=== PATIENT | male | born 1930 | race Two or more races ===

== ENCOUNTER 2018-03-29 17:15 | Emergency (ER) | payer MEDICARE, OTHER ==
[2018-03-29 17:40] LABS: MONOCYTE ABSOLUTE 0.4 Th/cmm (0.3-1.0)
[2018-03-29 17:43] LABS: % EOSINOPHILS 7.6 % (0.0-5.0); % LYMPHOCYTES 27.4 % (20.0-50.0); % MONOCYTES 8.5 % (2.0-10.0); % NEUTROPHILS 55.5 % (40.0-80.0); EOSINOPHILE ABSOLUTE 0.3 Th/cmm (0.1-0.4); HEMATOCRIT 32.7 % (41.0-60); HEMOGLOBIN 11.2 gm/dL (12-16); LYMPHOCYTE ABSOLUTE 1.2 Th/cmm (1.5-3.0); MEAN CELL VOLUME 94.1 fl (80-99); MEAN CORPUSCULAR HEMOGLOBIN 32.2 pg (27.0-31.0); MEAN CORPUSCULAR HGB CONC 34.3 pg (28.0-36.0); MEAN PLATELET VOLUME 7.6 fl; NEUTROPHILE ABSOLUTE 2.5 Th/cmm (1.8-8.0); PLATELET COUNT 200 Th/cmm (150-400); RED BLOOD COUNT 3.48 Mil/cmm (3.80-5.80); RED CELL DISTRIBUTION WIDTH 12.4 % (11.5-20.0); WHITE BLOOD COUNT 4.4 Th/cmm (4.8-10.8)
[2018-03-29 18:00] LABS: ALB/GLOB RATIO 0.9 (1.0-1.8); ALBUMIN 3.4 gm/dL (4.2-5.5); ALKALINE PHOSPHATASE 88 U/L (34-104); ANION GAP 10.6 (7.0-16.0); BILIRUBIN,TOTAL 0.3 mg/dL (0.3-1.0); BUN - UREA NITROGEN 49 mg/dL (7-25); CALCIUM SERUM 9.4 mg/dL (8.6-10.3); CARBON DIOXIDE 26.2 mEq/L (21.0-31.0); CHLORIDE 105 mEq/L (98-107); CREATININE - SERUM 1.7 mg/dL (0.7-1.3); GLUCOSE 120 mg/dL (70-105); PHOSPHOROUS 2.2 mg/dL (2.5-5.0); POTASSIUM SERUM 3.8 mEq/L (3.5-5.1); SGOT 18 U/L (13-39); SGPT/ALT 9 U/L (7-52); SODIUM SERUM 138 mEq/L (136-145); TOTAL PROTEIN,SERUM 7.3 gm/dL (6.0-8.3)
--- NOTE | 2018-03-29 18:33 | ED Physician Chart ---
ED Chief Complaint/HPI - Patient Information Date Seen:: 03/29/18 Time Seen:: 17:30 Chief Complaint:: INAPPROPRIATE BEHAVIOR History of Present Illness:: INAPPROPRIATE BEHAVIOR. PATIENT IS CLEARED FROM A MEDICAL STANDPOINT FOR PSYCHIATRIC ADMIT. HIS PHOSPHOROUS LEVEL IS A LITTLE LOW AND THAT SHOULD BE REPLACED. ALSO, HIS THYROID LEVEL REMAINS ABNORMAL SO HIS THYROID MEDICATION MAY NEED TO BE ADJUSTED. ALSO, PATIENT WAS NOT ABLE TO URINATE. THEREFORE, HIS URINALYSIS HAS NOT RETURNED PRIOR TO CLEARANCE. Allergies:: Allergies Allergy/AdvReac Type Severity Reaction Status Date / Time doxycycline Allergy Verified 03/29/18 17:26 [email or web address] Allergy Verified 03/29/18 17:26 Vitals:: Vital Signs - 8 hr 03/29/18 03/29/18 17:26 18:08 Temp 98.9 F 98.9 F HR 77 78 RR 19 16 BP 107/58 99/51 O2 Sat % 96 98 ED Physical Exam - Physical Examination Head: Atraumatic Eyes: Lids, conjuctiva normal, PERRL, EOMI Other ENMT comments:: dry mucous membranes Respiratory: Nl effort/Exclusion, Clear to Auscultation, No Wheeze/Rhonchi/Rales Cardio Vascular: RRR, No murmur, gallop, rubs, NL S1 S2 : No CVA tenderness Extremities: No edema Other Extremities comments:: scratches on lower legs. Other Neuro/Psych comments:: in general, patient is sleepy, but when he awakens, he is agitated. Sats are 98 % on room air. Misc: Normal back, No paraspinal tenderness Other Misc comments:: PATIENT IS CLEARED FROM A MEDICAL STANDPOINT FOR PSYCHIATRIC ADMIT. HIS PHOSPHOROUS LEVEL IS A LITTLE LOW AND THAT SHOULD BE REPLACED. ALSO, HIS THYROID LEVEL REMAINS ABNORMAL SO HIS THYROID MEDICATION MAY NEED TO BE ADJUSTED. ALSO, PATIENT WAS NOT ABLE TO URINATE. THEREFORE, HIS URINALYSIS HAS NOT RETURNED PRIOR TO CLEARANCE. ED Labs/Radiology/EKG Results - Lab Results Results: Laboratory Tests 03/29/18 03/29/18 03/29/18 17:32 17:32 17:32 WBC 4.4 L RBC 3.48 L Hgb 11.2 L Hct 32.7 L MCV 94.1 MCH 32.2 H MCHC Differential 34.3 RDW 12.4 Plt Count 200 MPV 7.6 Neutrophils % 55.5 Lymphocytes % 27.4 Monocytes % 8.5 Eosinophils % 7.6 H Basophils % 1.0 Sodium 138 Potassium 3.8 Chloride 105 Carbon Dioxide 26.2 Anion Gap 10.6 BUN 49 H Creatinine 1.7 H Est GFR ( Amer) TNP Est GFR (Non-Af Amer) TNP BUN/Creatinine Ratio 28.8 Glucose 120 H Calcium 9.4 Phosphorus 2.2 L Magnesium 2.0 Total Bilirubin 0.3 AST 18 ALT 9 Alkaline Phosphatase 88 Troponin I 0.01 Total Protein 7.3 Albumin 3.4 L Globulin 3.9 Albumin/Globulin Ratio 0.9 L ED Assessment - Assessment General Assessment: EKG from 17:26:54 pm reveals normal sinus rhythm, supraventricular bigeminy, RBBB, inferior infarct. ED Septic Shock - . Is Septic Shock (SBP<90, OR Lactate>4 mmol\L) present?: No - <6hrs of presentation: Vital Signs: Vital Signs - 8 hr 03/29/18 03/29/18 17:26 18:08 Temp 98.9 F 98.9 F HR 77 78 RR 19 16 BP 107/58 99/51 O2 Sat % 96 98 ED Reassessment (Disposition) - Reassessment Reassessment Condition:: Unchanged - Diagnosis Diagnosis:: INAPPROPRIATE BEHAVIOR, ALZHEIMER'S DISEASE, DIABETES, CAD, CHRONIC RENAL INSUFFICIENCY, HYPOTHYROIDISM (NOT COMPLETELY CORRECTED), LOW PHOSPHOROUS (NO REPLACEMENT), ANEMIA. - Patient Disposition Discharge/Transfer:: Acute Care w/in this hosp ED Discharge Plan - Patient Disposition Admit/Discharge/Transfer: Acute Care w/in this hosp Condition at Disposition: Stable Instructions: Psychosis Additional Instructions: PATIENT IS CLEARED FROM A MEDICAL STANDPOINT FOR PSYCHIATRIC ADMIT. HIS PHOSPHOROUS LEVEL IS A LITTLE LOW AND THAT SHOULD BE REPLACED. ALSO, HIS THYROID LEVEL REMAINS ABNORMAL SO HIS THYROID MEDICATION MAY NEED TO BE ADJUSTED. ALSO, PATIENT WAS NOT ABLE TO URINATE. THEREFORE, HIS URINALYSIS HAS NOT RETURNED PRIOR TO CLEARANCE.
[2018-03-29] MEDS ORDERED: Sodium Phos / Potassium Phos 1.25 GM PACK PO ONE (22:00)
== END 2018-03-29 23:10 ==
LOC: ER 17:15
DX: R46.89 Other symptoms and signs involving appearance and behavior (principal); E11.9 Type 2 diabetes mellitus without complications; I25.10 Atherosclerotic heart disease of native coronary artery without angina pectoris; G30.9 Alzheimer's disease, unspecified; F02.80 Dementia in other diseases classified elsewhere, unspecified severity, without behavioral disturbance, psychotic disturbance, mood disturbance, and anxiety; N18.9 Chronic kidney disease, unspecified; E03.9 Hypothyroidism, unspecified; D64.9 Anemia, unspecified; E83.39 Other disorders of phosphorus metabolism
CPT/HCPCS: 36415-UA; 80053-TC; 83735-TC; 84100-TC; 84443-TC; 84484-TC; 85025-TC; 93005

== ENCOUNTER 2018-07-14 11:59 | Inpatient (IN) | payer MEDICARE, OTHER ==
[2018-07-14] MEDS ORDERED: ceFAZolin 1 GM in Sodium Chloride 0.9% 50 ML IV ONE (12:14)
[2018-07-14] MEDS ORDERED: Clindamycin 600mg/50mL 600 MG/50 ML BAG IV ONE (12:15)
[2018-07-14] MEDS ORDERED: metroNIDAZOLE 500mg/NS 100mL 500 MG/100 ML BAG IV ONE ×2 (12:15→13:39)
[2018-07-14] MEDS ORDERED: Lactated Ringer 1,000 ML IV ONE (12:16)
[2018-07-14 12:33] LABS: % BASOPHILS 0.9 % (0.0-2.0); % EOSINOPHILS 3.2 % (0.0-5.0); % MONOCYTES 8.3 % (2.0-10.0); % NEUTROPHILS 74.6 % (40.0-80.0); BASOPHILE ABSOLUTE 0.1 Th/cumm (0-0.2); HEMATOCRIT 33.2 % (41.0-60); HEMOGLOBIN 10.9 gm/dL (12-16); MEAN CELL VOLUME 92.7 fl (80-99); MEAN CORPUSCULAR HEMOGLOBIN 30.5 pg (27.0-31.0); MEAN CORPUSCULAR HGB CONC 32.9 pg (28.0-36.0); MEAN PLATELET VOLUME 7.4 fl; MONOCYTE ABSOLUTE 0.6 Th/cmm (0.3-1.0); NEUTROPHILE ABSOLUTE 5.6 Th/cmm (1.8-8.0); PLATELET COUNT 326 Th/cmm (150-400); RED BLOOD COUNT 3.58 Mil/cmm (3.80-5.80); RED CELL DISTRIBUTION WIDTH 12.2 % (11.5-20.0); WHITE BLOOD COUNT 7.5 Th/cmm (4.8-10.8)
[2018-07-14 12:51] LABS: ALB/GLOB RATIO 0.6 (1.0-1.8); ALKALINE PHOSPHATASE 84 U/L (34-104); ANION GAP 9.6 (7.0-16.0); BILIRUBIN,TOTAL 0.4 mg/dL (0.3-1.0); BUN - UREA NITROGEN 51 mg/dL (7-25); CALCIUM SERUM 9.9 mg/dL (8.6-10.3); CHLORIDE 104 mEq/L (98-107); CREATININE - SERUM 1.6 mg/dL (0.7-1.3); GLUCOSE 185 mg/dL (70-105); PHOSPHOROUS 1.3 mg/dL (2.5-5.0); POTASSIUM SERUM 3.6 mEq/L (3.5-5.1); SGOT 12 U/L (13-39); SGPT/ALT 7 U/L (7-52); SODIUM SERUM 138 mEq/L (136-145); TOTAL PROTEIN,SERUM 8.1 gm/dL (6.0-8.3)
--- NOTE | 2018-07-14 13:07 | ED Physician Chart ---
ED Chief Complaint/HPI - Patient Information Date Seen:: 07/14/18 Time Seen:: 12:09 Chief Complaint:: bilateral foot sores History of Present Illness:: bilateral foot sores. right foot swollen and red in the location of the web between the right great toe and the right second toe. pus is located there as well. left great toe is swollen and red especially in the region of the IP joint of the great toe. Allergies:: Allergies Allergy/AdvReac Type Severity Reaction Status Date / Time doxycycline Allergy Verified 03/29/18 17:26 [email or web address] Allergy Verified 03/29/18 17:26 Vitals:: Vital Signs - 8 hr 07/14/18 12:09 Temp 97.8 F HR 87 RR 18 BP 129/52 O2 Sat % 99 Historian:: Medical Records Review:: Nurse's Note Reviewed, Transfer documents Reviewed ED Review of Systems - Review of Systems General/Constitutional: No fever, No chills, No weight loss, No weakness, No diaphoresis, No edema, No loss of appetite Skin: Skin lesions, No rash, No bruising, Other Family Medical History - Family Member Mother History Unknown: Yes ED Physical Exam - Physical Examination Other Gen/Cons comments:: sleeping. arousable. pale and chronically ill appearing. Head: Atraumatic Eyes: Lids, conjuctiva normal Other Skin comments:: bilateral foot sores. right foot swollen and red in the location of the web between the right great toe and the right second toe. pus is located there as well. left great toe is swollen and red especially in the region of the IP joint of the great toe. ENMT: External ears, nose nl Neck: Nontender, No nuchal rigidity Respiratory: Nl effort/Exclusion, Clear to Auscultation, No Wheeze/Rhonchi/Rales Other Respiratory comments:: decreased breath sounds at both bases. Cardio Vascular: RRR, No murmur, gallop, rubs, NL S1 S2 Other Extremities comments:: bilateral foot sores. right foot swollen and red in the location of the web between the right great toe and the right second toe. pus is located there as well. left great toe is swollen and red especially in the region of the IP joint of the great toe. Other Neuro/Psych comments:: sleepy, but easily arousable. Misc: Normal back ED Labs/Radiology/EKG Results - Lab Results Results: Laboratory Tests 07/14/18 07/14/18 07/14/18 12:25 12:25 12:25 WBC 7.5 RBC 3.58 L Hgb 10.9 L Hct 33.2 L MCV 92.7 MCH 30.5 MCHC Differential 32.9 RDW 12.2 Plt Count 326 MPV 7.4 Neutrophils % 74.6 Lymphocytes % 13.0 L Monocytes % 8.3 Eosinophils % 3.2 Basophils % 0.9 Sodium 138 Potassium 3.6 Chloride 104 Carbon Dioxide 28.0 Anion Gap 9.6 BUN 51 H Creatinine 1.6 H Est GFR ( Amer) TNP Est GFR (Non-Af Amer) TNP BUN/Creatinine Ratio 31.9 Glucose 185 H Whole Bld Lactic Acid 1.15 Calcium 9.9 Phosphorus 1.3 L Magnesium 2.0 Total Bilirubin 0.4 AST 12 L ALT 7 Alkaline Phosphatase 84 Total Protein 8.1 Albumin 3.0 L Globulin 5.1 Albumin/Globulin Ratio 0.6 L ED Assessment - Assessment General Assessment: reading of xrays by me: R foot with 1st metacarpal base fracture. Possible cortical elevation R D1 IP joint. L 1st MC with Possible cortical elevation L D1 IP joint. ED Septic Shock - . Is Septic Shock (SBP<90, OR Lactate>4 mmol\L) present?: No - <6hrs of presentation: Vital Signs: Vital Signs - 8 hr 07/14/18 12:09 Temp 97.8 F HR 87 RR 18 BP 129/52 O2 Sat % 99 ED Reassessment (Disposition) - Reassessment Reassessment Condition:: Unchanged - Diagnosis Diagnosis:: Celulitis of BLE, possible osteomyelitis Elevated sed rate urinary tract infection Low phosphorous Anemia renal insufficiency Dehydration - Patient Disposition Discharge/Transfer:: Acute Care w/in this hosp Accepting Physician:: Dr. Jackson Time Called:: 13:20 p.m. Time Responded:: 13:20 Admitted to:: Med/Surg Condition at Disposition:: Stable, Unchanged
[2018-07-14 13:42] LABS: EOSINOPHILE ABSOLUTE 0.2 Th/cmm (0.1-0.4); ESR SEDIMENTATION SED RATE 135 mm/hr (0-20)
[2018-07-14 14:20] LABS: URINE SOURCE CLEAN C
[2018-07-14 14:22] LABS: URINE BILIRUBIN NEGATIVE (NEGATIVE); URINE BLOOD NEGATIVE (NEGATIVE); URINE CLARITY CLEAR (CLEAR); URINE COLOR YELLOW; URINE GLUCOSE (UA) NEGATIVE (NEGATIVE); URINE KETONE NEGATIVE (NEGATIVE); URINE LEUKOCYTE ESTERASE NEGATIVE (NEGATIVE); URINE NITRATE NEGATIVE (NEGATIVE); URINE PROTEIN 30 mg/dL (NEGATIVE); URINE UROBILINOGEN 0.2 E.U./dL (0.2 - 1.0)
[2018-07-14 14:23] LABS: URINE MICROSCOPIC INDICATED? YES
[2018-07-14] MEDS ORDERED: Sodium Chloride 0.9% 1,000 ML IV SCH (14:32)
[2018-07-14 14:40] LABS: URINE RBC 0-2 /hpf (0-5); URINE WBC 0-2 /hpf (0-5)
[2018-07-14 14:41] LABS: URINE BACTERIA 1+ /hpf (NONE SEEN); URINE EPITHELIAL CELLS FEW /lpf (FEW)
[2018-07-14 14:42] LABS: URINE AMORPHOUS SEDIMENT MODERATE URATES (NONE SEEN)
[2018-07-14 15:06] VITALS: BP 121/82
[2018-07-14] MEDS: metroNIDAZOLE 500mg/NS 100mL 500 MG/100 ML BAG IV SCH ×2 (17:09→23:30)
[2018-07-14] MEDS: INSULIN ASPART SLIDING SCALE 100 UNITS/ML UNIT SUBQ SCH (17:21)
[2018-07-14] MEDS: Atorvastatin Calcium 10 MG TAB PO SCH (20:54)
[2018-07-14] MEDS ORDERED: Clindamycin 600mg/50mL 600 MG/50 ML BAG IV SCH (21:00)
[2018-07-14] MEDS ORDERED: ceFAZolin 1 GM in Sodium Chloride 0.9% 50 ML IV SCH (21:00)
--- NOTE | 2018-07-14 23:49 | Consultation ---
Consult Note - Consult Note Service Date: 07/14/18 Referring Physician: Carlos Jackson Consult Note: PHYSICIAN Consultation Note: Date of Admission: 07/14/18 Purpose of Consultation: Right foot cellulitis. Chief Complaint: Patient RADHA SOLIS was admitted to [facility] Unit [facility] with CELLULITIS. History of Present Illness:, 87-year-old male with a past medical history diabetes mellitus type 2, hypertension, BPH, atrial fibrillation, coronary artery disease, hypothyroidism, dementia brought in from [place] given her nursing facility for right big toe with redness swelling associated with the ulcer is draining pus. The redness has extended to the proximal forefoot. There is no fever. No chills. On initial evaluation, patient was afebrile and WBC count was 7500. Past Medical History: Diabetes mellitus type 2, hypertension, BPH, atrial fibrillation, coronary artery disease, hypothyroidism, dementia. Allergies Allergy/AdvReac Type Severity Reaction Status Date / Time doxycycline Allergy Verified 03/29/18 17:26 [email or web address] Allergy Verified 03/29/18 17:26 Vital Signs Temp 96.8 F 07/14/18 20:00 Pulse 96 07/14/18 20:00 Resp 20 07/14/18 20:00 BP 108/31 07/14/18 20:00 Pulse Ox 95 07/14/18 20:00 Intake & Output 07/14/18 07/14/18 07/15/18 06:59 18:59 06:59 Intake Total 867.5 100 Balance 867.5 100 Weight (lbs) 70.08 kg Intake: Intake, IV Amount 817.5 100 Clindamycin 600mg/50mL 50 600 mg In 50 ml @ 100 mls /hr IV Q8HR BIANCA Rx#: [id number] Lactated Ringer 1,000 ml 717.5 @ 150 mls/hr IV .[id number] ONE Rx#:[id number] ceFAZolin 1 gm In Sodium 50 Chloride 0.9% 50 ml @ 100 mls/hr IV Q8HR [facility]CA Rx#: [id number] metroNIDAZOLE 500mg/NS 100 100mL 500 mg In 100 ml @ 100 mls/hr IV Q6HR [facility] Rx #:[id number] Oral 50 Other: # Voids 1 Weight Source Bedscale Laboratory Results - last 24 hr 07/14/18 07/14/18 07/14/18 12:25 12:25 12:25 WBC 7.5 RBC 3.58 L Hgb 10.9 L Hct 33.2 L MCV 92.7 MCH 30.5 MCHC Differential 32.9 RDW 12.2 Plt Count 326 MPV 7.4 Neutrophils % 74.6 Lymphocytes % 13.0 L Monocytes % 8.3 Eosinophils % 3.2 Basophils % 0.9 ESR 135 H Sodium 138 Potassium 3.6 Chloride 104 Carbon Dioxide 28.0 Anion Gap 9.6 BUN 51 H Creatinine 1.6 H Est GFR ( Amer) TNP Est GFR (Non-Af Amer) TNP BUN/Creatinine Ratio 31.9 Glucose 185 H POC Glucose Whole Bld Lactic Acid 1.15 Calcium 9.9 Phosphorus 1.3 L Magnesium 2.0 Total Bilirubin 0.4 AST 12 L ALT 7 Alkaline Phosphatase 84 Total Protein 8.1 Albumin 3.0 L Globulin 5.1 Albumin/Globulin Ratio 0.6 L Urine Source Urine Color Urine Clarity Urine pH Ur Specific [place] Urine Protein Urine Glucose (UA) Urine Ketones Urine Blood Urine Nitrate Urine Bilirubin Urine Urobilinogen Ur Leukocyte Esterase Urine RBC Urine WBC Ur Epithelial Cells Amorphous Sediment Urine Bacteria 07/14/18 07/14/18 07/14/18 13:09 13:50 17:08 WBC RBC Hgb Hct MCV MCH MCHC Differential RDW Plt Count MPV Neutrophils % Lymphocytes % Monocytes % Eosinophils % Basophils % ESR Sodium Potassium Chloride Carbon Dioxide Anion Gap BUN Creatinine Est GFR ( Amer) Est GFR (Non-Af Amer) BUN/Creatinine Ratio Glucose POC Glucose 199 H 203 H Whole Bld Lactic Acid Calcium Phosphorus Magnesium Total Bilirubin AST ALT Alkaline Phosphatase Total Protein Albumin Globulin Albumin/Globulin Ratio Urine Source CLEAN C Urine Color YELLOW Urine Clarity CLEAR Urine pH 6.0 Ur Specific [place] 1.010 Urine Protein 30 H Urine Glucose (UA) NEGATIVE Urine Ketones NEGATIVE Urine Blood NEGATIVE Urine Nitrate NEGATIVE Urine Bilirubin NEGATIVE Urine Urobilinogen 0.2 Ur Leukocyte Esterase NEGATIVE Urine RBC 0-2 H Urine WBC 0-2 Ur Epithelial Cells FEW Amorphous Sediment MODERATE URATES Urine Bacteria 1+ H 07/14/18 23:34 WBC RBC Hgb Hct MCV MCH MCHC Differential RDW Plt Count MPV Neutrophils % Lymphocytes % Monocytes % Eosinophils % Basophils % ESR Sodium Potassium Chloride Carbon Dioxide Anion Gap BUN Creatinine Est GFR ( Amer) Est GFR (Non-Af Amer) BUN/Creatinine Ratio Glucose POC Glucose 83 Whole Bld Lactic Acid Calcium Phosphorus Magnesium Total Bilirubin AST ALT Alkaline Phosphatase Total Protein Albumin Globulin Albumin/Globulin Ratio Urine Source Urine Color Urine Clarity Urine pH Ur Specific [place] Urine Protein Urine Glucose (UA) Urine Ketones Urine Blood Urine Nitrate Urine Bilirubin Urine Urobilinogen Ur Leukocyte Esterase Urine RBC Urine WBC Ur Epithelial Cells Amorphous Sediment Urine Bacteria Home Medication Medication Instructions Recorded Type Furosemide [Lasix] 20 mg PO DAILY 04/17/13 History Insulin Glargine,Hum.rec.anlog 40 unit SQ DAILY 04/17/13 History [Lantus Solostar] Ascorbic Acid [Leader C 250 mg-140 1 tab PO DAILY 06/11/13 History mg] Atorvastatin Calcium [Lipitor] 10 mg PO DAILY 06/11/13 History Donepezil Hcl [Aricept] 10 mg PO HS 06/11/13 History Folic Acid 1 mg PO DAILY 06/11/13 History Levothyroxine Sodium [Synthroid] 137.5 mcg PO DAILY 06/11/13 History Ferrous Sulfate [Ferosul] 330 mg PO DAILY 01/20/14 History Insulin Human Regular [NovoLIN R] 0 units SUBQ DAILY 01/20/14 History Dabigatran Etexilate Mesylate 150 mg PO BID 03/29/18 History [Pradaxa] Dextrose 10% 250 ml IV PRN PRN 03/29/18 History Dextrose [Glucose Gel] 15 gm PO PRN PRN 03/29/18 History GLUCAGON HCl [Glucagen] 1 mg IM PRN PRN 03/29/18 History Metformin HCl 850 mg PO TID 03/29/18 History Tamsulosin [Flomax] 0.4 mg PO QPM 03/29/18 History Collagenase Clostridium Hist. 1 appl TP DAILY 07/14/18 History [Santyl] Megestrol Acetate [Megace] 40 mg PO BID 07/14/18 History Current Medications Generic Name Dose Route Start Last Admin Trade Name Freq PRN Reason Stop Dose Admin Ascorbic Acid 500 mg 07/15/18 09:00 Vitamin C PO 09/13/18 08:59 DAILY BIANCA Atorvastatin Calcium 10 mg 07/14/18 21:00 07/14/18 20:54 Lipitor PO 09/12/18 20:59 10 mg HS BIANCA Administration Donepezil HCl 10 mg 07/14/18 21:00 07/14/18 20:54 Aricept PO 09/12/18 20:59 10 mg HS BIANCA Administration Ferrous Sulfate 325 mg 07/15/18 09:00 Iron PO 09/13/18 08:59 DAILY BIANCA Folic Acid 1 mg 07/15/18 09:00 Folate PO 09/13/18 08:59 DAILY BIANCA Sodium Chloride 1,000 mls @ 75 mls/hr 07/14/18 14:32 07/14/18 16:58 Nacl 0.9% IV 09/12/18 14:31 75 mls/hr .[id number] BIANCA Administration Metronidazole 500 mg in 100 mls @ 100 mls/hr 07/14/18 18:00 07/14/18 23:30 Flagyl IV 09/12/18 17:59 100 mls/hr Q6HR BIANCA Administration Clindamycin Phosphate 600 mg in 50 mls @ 100 mls/hr 07/14/18 21:00 07/14/18 22:15 Cleocin Pb IV 09/12/18 20:59 Infused Q8HR [facility] Infusion Cefazolin Sodium 1 gm/ Sodium 50 mls @ 100 mls/hr 07/14/18 21:00 07/14/18 21: 44 Chloride IV 09/12/18 20:59 Infused Q8HR BIANCA Infusion Insulin Aspart 0 units 07/14/18 18:00 07/14/18 17:21 Novolog Insulin Sliding Scale SUBQ 09/12/18 17:59 4 units Q6HR BIANCA Administration Protocol Insulin Detemir 40 units 07/15/18 09:00 Levemir Insulin SUBQ 09/13/18 08:59 DAILY [facility] Levothyroxine Sodium 0.1 mg/ 0.1375 mg 07/15/18 07:30 Levothyroxine Sodium 0.0375 mg PO 09/13/18 07:29 QDAC BIANCA Megestrol Acetate 40 mg 07/14/18 17:00 07/14/18 17:21 Megace PO 09/12/18 16:59 40 mg BID BIANCA Administration Protocol Metformin HCl 850 mg 07/14/18 21:00 Glucophage PO 09/12/18 20:59 TID BIANCA Miscellaneous 150 mg 07/14/18 17:00 Dabigatran Etexilate Mesylate [Pradaxa] PO 09/12/18 16:59 BID [facility] Tamsulosin HCl 0.4 mg 07/14/18 17:00 07/14/18 17:21 Flomax PO 09/12/18 16:59 0.4 mg QPM BIANCA Administration Review of Systems: A 12 point ROS was reviewed with the pertinent positive and negatives noted in the HPI. Poor history and Social History Smoking Status Unknown if ever smoked Family Medical History Unknown. Physical Exam: General: Comfortable, not in acute distress. Well-nourished well-developed. HEENT: : Normocytic, atraumatic. Orthopedic: Moist, pink tongue. No thrush. Eyes: Mild pallor no icterus. Pupil PERRLA. EOMI. Neck: Supple, no JVD bruits. No nephropathy. Not thyromegaly. Cardio: S1 and S2 within normal limits regular rhythm no murmur or gallop. Respiratory: Vesicular breath sound no crackles no wheezing no rhonchi. No Wheezing. Abdominal: Soft, nontender nondistended bowel sounds present. Genital/Urinary: Deferred. Extremities: No cyanosis no clubbing no edema. Patient has some right big toe ulcer with the tender erythematous swelling. There is a necrotic lesion on the superomedial aspect of the proximal big toe. This small ulceration of other part of the distal big toe. The erythema has extended to the forefoot. There is some superficial ulceration of second toe also also. The skin is scaly. Neurological: Alert and awake. Assessment: 1. Cellulitis of the right big toe and foot. Rule out posterior mellitus. PERRLA peripheral artery disease. 2. Dementia. 3. Diabetes mellitus type 2. 4. Hypertension. 5. Carotid disease. 6. Atrial fibrillation. 7. Hypothyroidism. 8. BPH. Plan: Will change antibiotic to vancomycin and cefepime. Three-phase bone scan. Arterial study of both lower activities. Vascular surgery consult with Dr. Bee. Thank you, Dr. Jackson for involving me in taking care of this patient Signed, Dave Bee M.D. [id number]
[2018-07-15] MEDS: INSULIN ASPART SLIDING SCALE 100 UNITS/ML UNIT SUBQ SCH ×4 (00:25→18:06)
[2018-07-15 04:49] LABS: % BASOPHILS 0.3 % (0.0-2.0); % EOSINOPHILS 2.8 % (0.0-5.0); % LYMPHOCYTES 17.4 % (20.0-50.0); % NEUTROPHILS 70.5 % (40.0-80.0); EOSINOPHILE ABSOLUTE 0.2 Th/cmm (0.1-0.4); HEMOGLOBIN 9.9 gm/dL (12-16); LYMPHOCYTE ABSOLUTE 1.3 Th/cmm (1.5-3.0); MEAN CELL VOLUME 94.6 fl (80-99); MEAN CORPUSCULAR HEMOGLOBIN 31.1 pg (27.0-31.0); MEAN CORPUSCULAR HGB CONC 32.9 pg (28.0-36.0); MEAN PLATELET VOLUME 7.9 fl; MONOCYTE ABSOLUTE 0.7 Th/cmm (0.3-1.0); NEUTROPHILE ABSOLUTE 5.5 Th/cmm (1.8-8.0); PLATELET COUNT 300 Th/cmm (150-400); RED BLOOD COUNT 3.18 Mil/cmm (3.80-5.80); RED CELL DISTRIBUTION WIDTH 12.2 % (11.5-20.0); WHITE BLOOD COUNT 7.7 Th/cmm (4.8-10.8)
[2018-07-15 05:26] LABS: ALB/GLOB RATIO 0.6 (1.0-1.8); ALBUMIN 2.7 gm/dL (4.2-5.5); ALKALINE PHOSPHATASE 65 U/L (34-104); ANION GAP 8.8 (7.0-16.0); BILIRUBIN,TOTAL 0.3 mg/dL (0.3-1.0); BUN - UREA NITROGEN 48 mg/dL (7-25); CALCIUM SERUM 9.2 mg/dL (8.6-10.3); CARBON DIOXIDE 27.8 mEq/L (21.0-31.0); CHLORIDE 107 mEq/L (98-107); CREATININE - SERUM 1.4 mg/dL (0.7-1.3); POTASSIUM SERUM 3.6 mEq/L (3.5-5.1); SGOT 12 U/L (13-39); SGPT/ALT 6 U/L (7-52); SODIUM SERUM 140 mEq/L (136-145); TOTAL PROTEIN,SERUM 7.2 gm/dL (6.0-8.3)
[2018-07-15 05:33] LABS: GLUCOSE 75 mg/dL (70-105)
[2018-07-15] MEDS: LEVOTHYROXINE PO SCH (06:39)
--- NOTE | 2018-07-15 08:41 | Diagnostic Imaging Report ---
Left foot (3 views) HISTORY: Pain Chronic/degenerative changes noted. No acute abnormalities. No fractures. Vascular calcification is seen. IMPRESSION: 1. No definite acute abnormalities 2. Atherosclerotic vascular changes In the presence of recent trauma and persistent symptoms, a repeat radiograph in 5-7 days may be helpful for detection of a subtle or occult fracture.
--- NOTE | 2018-07-15 08:41 | History and Physical ---
History of Present Illness - HPI Chief Complaint: Edema and redness of Right and left big toe HPI: This is a patient that I follow in a SNF, I received a phone call stating that patient had edema and redness of left foot. He was send to ER for evaluation. Vital Signs: Last Vital Signs Temp 97.2 F 07/15/18 07:59 Pulse 87 07/15/18 07:59 Resp 19 07/15/18 07:59 BP 105/42 07/15/18 07:59 Pulse Ox 95 07/15/18 07:59 Past Medical History Cardiovascular: Report: AFIB, CAD, CHF, HTN Pulmonary: Report: No Pertinent Hx SENIOR ACCOUNTING ANALYST: Report: Dementia GI: Report: No Pertinent Hx Psych: Report: Schizophrenia Musculoskeletal: Report: No Pertinent Hx, Weakness Rheumatologic: Report: No pertinent Hx Infectious Disease: Report: No Pertinent Hx Renal/: Report: Benign Prostatic Enlarg Endocrine: Report: Diabetes, Hypothyroidism Dermatology: Report: Cellulitis - Past Surgical History Past Surgical History: No pertinent Hx Family Medical History - Family Member Mother History Unknown: Yes Social History Smoke: No Alcohol: None Drugs: None Lives: [facility] Domestic Violence: Negative - Medications Home Medications: Home Medication Medication Instructions Recorded Type Furosemide [Lasix] 20 mg PO DAILY 04/17/13 History Insulin Glargine,Hum.rec.anlog 40 unit SQ DAILY 04/17/13 History [Lantus Solostar] Ascorbic Acid [Leader C 250 mg-140 1 tab PO DAILY 06/11/13 History mg] Atorvastatin Calcium [Lipitor] 10 mg PO DAILY 06/11/13 History Donepezil Hcl [Aricept] 10 mg PO HS 06/11/13 History Folic Acid 1 mg PO DAILY 06/11/13 History Levothyroxine Sodium [Synthroid] 137.5 mcg PO DAILY 06/11/13 History Ferrous Sulfate [Ferosul] 330 mg PO DAILY 01/20/14 History Insulin Human Regular [NovoLIN R] 0 units SUBQ DAILY 01/20/14 History Dabigatran Etexilate Mesylate 150 mg PO BID 03/29/18 History [Pradaxa] Dextrose 10% 250 ml IV PRN PRN 03/29/18 History Dextrose [Glucose Gel] 15 gm PO PRN PRN 03/29/18 History GLUCAGON HCl [Glucagen] 1 mg IM PRN PRN 03/29/18 History Metformin HCl 850 mg PO TID 03/29/18 History Tamsulosin [Flomax] 0.4 mg PO QPM 03/29/18 History Collagenase Clostridium Hist. 1 appl TP DAILY 07/14/18 History [Santyl] Megestrol Acetate [Megace] 40 mg PO BID 07/14/18 History - Allergies Allergies/Adverse Reactions: Allergies Allergy/AdvReac Type Severity Reaction Status Date / Time doxycycline Allergy Verified 03/29/18 17:26 [email or web address] Allergy Verified 03/29/18 17:26 Review of Systems - Review of Systems Constitutional: Report: No Significant Eyes: Report: No Significant ENT: Report: No Significant Respiratory: Report: No Significant Cardiovascular: Report: No Significant Gastrointestinal: Report: No Significant Genitourinary: Report: No Significant Musculoskeletal: Report: No Significant Skin: Report: Other (Cellulitis) Neurological: Report: Weakness, Confusion Physical Exam - Physical Exam HEENT: Report: Ears Nose Throat within normal limits Neck: Report: Within normal limits Cardiovascular Systems: Report: Regular, Rate and Rhythm Respiratory: Report: Breath Sounds are within normal limits Abdomen: Report: Non-tender to palpation Back: Report: Inspection of back is within normal limits. Extremities: Report: Other (Edema and redness of both big toes) Skin: Report: A wound was noted, Other (Edema of both big toes) Neuro/Psych: Report: Disoriented to name time or place - Lab Results All Lab Results last 24 hours: Laboratory Results - last 24 hr 07/14/18 07/14/18 07/14/18 12:25 12:25 12:25 WBC 7.5 RBC 3.58 L Hgb 10.9 L Hct 33.2 L MCV 92.7 MCH 30.5 MCHC Differential 32.9 RDW 12.2 Plt Count 326 MPV 7.4 Neutrophils % 74.6 Lymphocytes % 13.0 L Monocytes % 8.3 Eosinophils % 3.2 Basophils % 0.9 ESR 135 H Sodium 138 Potassium 3.6 Chloride 104 Carbon Dioxide 28.0 Anion Gap 9.6 BUN 51 H Creatinine 1.6 H Est GFR ( Amer) TNP Est GFR (Non-Af Amer) TNP BUN/Creatinine Ratio 31.9 Glucose 185 H POC Glucose Whole Bld Lactic Acid 1.15 Calcium 9.9 Phosphorus 1.3 L Magnesium 2.0 Total Bilirubin 0.4 AST 12 L ALT 7 Alkaline Phosphatase 84 Total Protein 8.1 Albumin 3.0 L Globulin 5.1 Albumin/Globulin Ratio 0.6 L Urine Source Urine Color Urine Clarity Urine pH Ur Specific [place] Urine Protein Urine Glucose (UA) Urine Ketones Urine Blood Urine Nitrate Urine Bilirubin Urine Urobilinogen Ur Leukocyte Esterase Urine RBC Urine WBC Ur Epithelial Cells Amorphous Sediment Urine Bacteria 07/14/18 07/14/18 07/14/18 13:09 13:50 17:08 WBC RBC Hgb Hct MCV MCH MCHC Differential RDW Plt Count MPV Neutrophils % Lymphocytes % Monocytes % Eosinophils % Basophils % ESR Sodium Potassium Chloride Carbon Dioxide Anion Gap BUN Creatinine Est GFR ( Amer) Est GFR (Non-Af Amer) BUN/Creatinine Ratio Glucose POC Glucose 199 H 203 H Whole Bld Lactic Acid Calcium Phosphorus Magnesium Total Bilirubin AST ALT Alkaline Phosphatase Total Protein Albumin Globulin Albumin/Globulin Ratio Urine Source CLEAN C Urine Color YELLOW Urine Clarity CLEAR Urine pH 6.0 Ur Specific [place] 1.010 Urine Protein 30 H Urine Glucose (UA) NEGATIVE Urine Ketones NEGATIVE Urine Blood NEGATIVE Urine Nitrate NEGATIVE Urine Bilirubin NEGATIVE Urine Urobilinogen 0.2 Ur Leukocyte Esterase NEGATIVE Urine RBC 0-2 H Urine WBC 0-2 Ur Epithelial Cells FEW Amorphous Sediment MODERATE URATES Urine Bacteria 1+ H 07/14/18 07/15/18 07/15/18 23:34 02:43 04:15 WBC 7.7 RBC 3.18 L Hgb 9.9 L Hct 30.0 L MCV 94.6 MCH 31.1 H MCHC Differential 32.9 RDW 12.2 Plt Count 300 MPV 7.9 Neutrophils % 70.5 Lymphocytes % 17.4 L Monocytes % 9.0 Eosinophils % 2.8 Basophils % 0.3 ESR Sodium Potassium Chloride Carbon Dioxide Anion Gap BUN Creatinine Est GFR ( Amer) Est GFR (Non-Af Amer) BUN/Creatinine Ratio Glucose POC Glucose 83 121 H Whole Bld Lactic Acid Calcium Phosphorus Magnesium Total Bilirubin AST ALT Alkaline Phosphatase Total Protein Albumin Globulin Albumin/Globulin Ratio Urine Source Urine Color Urine Clarity Urine pH Ur Specific [place] Urine Protein Urine Glucose (UA) Urine Ketones Urine Blood Urine Nitrate Urine Bilirubin Urine Urobilinogen Ur Leukocyte Esterase Urine RBC Urine WBC Ur Epithelial Cells Amorphous Sediment Urine Bacteria 07/15/18 07/15/18 04:15 05:44 WBC RBC Hgb Hct MCV MCH MCHC Differential RDW Plt Count MPV Neutrophils % Lymphocytes % Monocytes % Eosinophils % Basophils % ESR Sodium 140 Potassium 3.6 Chloride 107 Carbon Dioxide 27.8 Anion Gap 8.8 BUN 48 H Creatinine 1.4 H Est GFR ( Amer) TNP Est GFR (Non-Af Amer) TNP BUN/Creatinine Ratio 34.3 Glucose 75 D POC Glucose 110 H Whole Bld Lactic Acid Calcium 9.2 Phosphorus Magnesium Total Bilirubin 0.3 AST 12 L ALT 6 L Alkaline Phosphatase 65 Total Protein 7.2 Albumin 2.7 L Globulin 4.5 Albumin/Globulin Ratio 0.6 L Urine Source Urine Color Urine Clarity Urine pH Ur Specific [place] Urine Protein Urine Glucose (UA) Urine Ketones Urine Blood Urine Nitrate Urine Bilirubin Urine Urobilinogen Ur Leukocyte Esterase Urine RBC Urine WBC Ur Epithelial Cells Amorphous Sediment Urine Bacteria - Assessment Assessment: Current Active Problems Problem Status Onset FESTERING WOUND TO RIGHT #1/2 TOES Acute Patient is awake, alert, calm, in no acute distress. Dx: Cellulitis of left foot, DM, HTN, A-fib, CAD, PVD, Hypothyroidism, Dementia. - Plan Plan: Patient is in IV NS, IV Vanco and cefepine, Pain control, Continue with SNF meds. Follow by Surgery and ID. Will continue to monitor.
--- NOTE | 2018-07-15 08:42 | Diagnostic Imaging Report ---
Right foot (2 views) HISTORY: Pain There is deformity involving the lateral aspect of the base of the first metatarsal. Findings suggest a healing fracture. Vascular calcification noted. Spur formation noted off the posterior aspect of the calcaneus. IMPRESSION: 1. Deformity involving the base of the first metatarsal that appears related to a healing fracture. 2. No other acute abnormalities 3. Vascular calcification In the presence of recent trauma and persistent symptoms, a repeat radiograph in 5-7 days may be helpful for detection of a subtle or occult fracture.
[2018-07-15] MEDS ORDERED: Insulin Detemir 100 units/mL 10mL Vial SUBQ SCH (09:00)
[2018-07-15] MEDS ORDERED: LEVOTHYROXINE SODIUM PO SCH (09:00)
[2018-07-15] MEDS ORDERED: ASCORBIC ACID PO SCH (09:00)
[2018-07-15] MEDS ORDERED: FOLIC ACID 1 MG PO SCH (09:00)
[2018-07-15] MEDS ORDERED: ATORVASTATIN CALCIUM 10 MG PO SCH (09:00)
[2018-07-15] MEDS ORDERED: Non-Formulary Item 1 EA (Ferrous Sulfate [Ferosul] 330 MG) PO SCH (09:00)
[2018-07-15] MEDS ORDERED: INSULIN GLARGINE HUM REC ANLOG 40 UNIT SQ SCH (09:00)
--- NOTE | 2018-07-15 10:48 | General Progress Note ---
Subjective - Review of Systems Service Date: 07/15/18 Events since last encounter: chart reviewed areas of ulcerations right toes doppler arterial study being done now Objective - Results Result Diagrams: 07/15/18 04:15 07/15/18 04:15 Recent Labs: Laboratory Last Values WBC 7.7 Th/cmm (4.8-10.8) 07/15/18 04:15 RBC 3.18 Mil/cmm (3.80-5.80) L 07/15/18 04:15 Hgb 9.9 gm/dL (12-16) L 07/15/18 04:15 Hct 30.0 % (41.0-60) L 07/15/18 04:15 MCV 94.6 fl (80-99) 07/15/18 04:15 MCH 31.1 pg (27.0-31.0) H 07/15/18 04:15 MCHC Differential 32.9 pg (28.0-36.0) 07/15/18 04:15 RDW 12.2 % (11.5-20.0) 07/15/18 04:15 Plt Count 300 Th/cmm (150-400) 07/15/18 04:15 MPV 7.9 fl 07/15/18 04:15 Neutrophils % 70.5 % (40.0-80.0) 07/15/18 04:15 Lymphocytes % 17.4 % (20.0-50.0) L 07/15/18 04:15 Monocytes % 9.0 % (2.0-10.0) 07/15/18 04:15 Eosinophils % 2.8 % (0.0-5.0) 07/15/18 04:15 Basophils % 0.3 % (0.0-2.0) 07/15/18 04:15 ESR 135 mm/hr (0-20) H 07/14/18 12:25 Sodium 140 mEq/L (136-145) 07/15/18 04:15 Potassium 3.6 mEq/L (3.5-5.1) 07/15/18 04:15 Chloride 107 mEq/L (98-107) 07/15/18 04:15 Carbon Dioxide 27.8 mEq/L (21.0-31.0) 07/15/18 04:15 Anion Gap 8.8 (7.0-16.0) 07/15/18 04:15 BUN 48 mg/dL (7-25) H 07/15/18 04:15 Creatinine 1.4 mg/dL (0.7-1.3) H 07/15/18 04:15 Est GFR ( Amer) TNP 07/15/18 04:15 Est GFR (Non-Af Amer) TNP 07/15/18 04:15 BUN/Creatinine Ratio 34.3 07/15/18 04:15 Glucose 75 mg/dL (70-105) D 07/15/18 04:15 POC Glucose 110 MG/DL (70 - 105) H 07/15/18 05:44 Whole Bld Lactic Acid 1.15 mmol/L (0.60-1.99) 07/14/18 12:25 Calcium 9.2 mg/dL (8.6-10.3) 07/15/18 04:15 Phosphorus 1.3 mg/dL (2.5-5.0) L 07/14/18 12:25 Magnesium 2.0 mg/dL (1.9-2.7) 07/14/18 12:25 Total Bilirubin 0.3 mg/dL (0.3-1.0) 07/15/18 04:15 AST 12 U/L (13-39) L 07/15/18 04:15 ALT 6 U/L (7-52) L 07/15/18 04:15 Alkaline Phosphatase 65 U/L (34-104) 07/15/18 04:15 Total Protein 7.2 gm/dL (6.0-8.3) 07/15/18 04:15 Albumin 2.7 gm/dL (4.2-5.5) L 07/15/18 04:15 Globulin 4.5 gm/dL 07/15/18 04:15 Albumin/Globulin Ratio 0.6 (1.0-1.8) L 07/15/18 04:15 Urine Source CLEAN C 07/14/18 13:50 Urine Color YELLOW 07/14/18 13:50 Urine Clarity CLEAR (CLEAR) 07/14/18 13:50 Urine pH 6.0 (4.6 - 8.0) 07/14/18 13:50 Ur Specific [place] 1.010 (1.005-1.030) 07/14/18 13:50 Urine Protein 30 mg/dL (NEGATIVE) H 07/14/18 13:50 Urine Glucose (UA) NEGATIVE mg/dL (NEGATIVE) 07/14/18 13:50 Urine Ketones NEGATIVE mg/dL (NEGATIVE) 07/14/18 13:50 Urine Blood NEGATIVE (NEGATIVE) 07/14/18 13:50 Urine Nitrate NEGATIVE (NEGATIVE) 07/14/18 13:50 Urine Bilirubin NEGATIVE (NEGATIVE) 07/14/18 13:50 Urine Urobilinogen 0.2 E.U./dL (0.2 - 1.0) 07/14/18 13:50 Ur Leukocyte Esterase NEGATIVE (NEGATIVE) 07/14/18 13:50 Urine RBC 0-2 /hpf (0-5) H 07/14/18 13:50 Urine WBC 0-2 /hpf (0-5) 07/14/18 13:50 Ur Epithelial Cells FEW /lpf (FEW) 07/14/18 13:50 Amorphous Sediment MODERATE URATES (NONE SEEN) 07/14/18 13:50 Urine Bacteria 1+ /hpf (NONE SEEN) H 07/14/18 13:50 - Physical Exam Vitals and I&O: Vital Signs Temp 97.2 F 07/15/18 07:59 Pulse 87 07/15/18 07:59 Resp 19 07/15/18 07:59 BP 105/42 07/15/18 07:59 Pulse Ox 95 07/15/18 07:59 Intake & Output 07/14/18 07/15/18 07/15/18 18:59 06:59 18:59 Intake Total 867.5 350 Balance 867.5 350 Weight (lbs) 70.08 kg 71.395 kg Intake: Intake, IV Amount 817.5 200 Clindamycin 600mg/50mL 50 600 mg In 50 ml @ 100 mls /hr IV Q8HR [facility] Rx#: [id number] Lactated Ringer 1,000 ml 717.5 @ 150 mls/hr IV .[id number] ONE Rx#:[id number] ceFAZolin 1 gm In Sodium 50 Chloride 0.9% 50 ml @ 100 mls/hr IV Q8HR [facility] Rx#: [id number] metroNIDAZOLE 500mg/NS 100 100 100mL 500 mg In 100 ml @ 100 mls/hr IV Q6HR [facility] Rx #:[id number] Oral 50 150 Other: # Voids 1 Weight Source Bedscale Bedscale Active Medications: Current Medications Ascorbic Acid (Vitamin C) 500 mg PO DAILY [facility] Stop: 09/13/18 08:59 Atorvastatin Calcium (Lipitor) 10 mg PO HS [facility] Stop: 09/12/18 20:59 Last Admin: 07/14/18 20:54 Dose: 10 mg Donepezil HCl (Aricept) 10 mg PO HS [facility] Stop: 09/12/18 20:59 Last Admin: 07/14/18 20:54 Dose: 10 mg Ferrous Sulfate (Iron) 325 mg PO DAILY [facility] Stop: 09/13/18 08:59 Folic Acid (Folate) 1 mg PO DAILY [facility] Stop: 09/13/18 08:59 Sodium Chloride (Nacl 0.9%) 1,000 mls @ 75 mls/hr IV .[id number] [facility] Stop: 09/12/18 14:31 Last Admin: 07/14/18 16:58 Dose: 75 mls/hr Cefepime HCl 1 gm/ Sodium (Chloride) 50 mls @ 100 mls/hr IV Q12HR [facility] Stop: 09/13/18 08:59 Vancomycin HCl 1 gm/ Sodium (Chloride) 250 mls @ 165 mls/hr IV Q24HR@0900 [facility] Stop: 09/13/18 09:59 Insulin Aspart (Novolog Insulin Sliding Scale) 0 units SUBQ Q6HR [facility]; Protocol Stop: 09/12/18 17:59 Last Admin: 07/15/18 06:05 Dose: Not Given Insulin Detemir (Levemir Insulin) 40 units SUBQ DAILY [facility] Stop: 09/13/18 08:59 Levothyroxine Sodium 0.1 mg/ (Levothyroxine Sodium 0.0375 mg) 0.1375 mg PO QDAC [facility] Stop: 09/13/18 07:29 Last Admin: 07/15/18 06:39 Dose: 0.1375 mg Lorazepam (Ativan) 1 mg PO Q8HR PRN; Protocol PRN Reason: Agitation Stop: 09/13/18 10:27 Megestrol Acetate (Megace) 40 mg PO BID [facility]; Protocol Stop: 09/12/18 16:59 Last Admin: 07/14/18 17:21 Dose: 40 mg Metformin HCl (Glucophage) 850 mg PO TID [facility] Stop: 09/13/18 08:59 Miscellaneous (Vancomycin Iv Per Pharmacy) 1 ea MC PRN [facility] Stop: 09/13/18 02:29 Tamsulosin HCl (Flomax) 0.4 mg PO QPM [facility] Stop: 09/12/18 16:59 Last Admin: 07/14/18 17:21 Dose: 0.4 mg - Procedures Procedures: Procedures Procedure Code Date OTHER GROUP THERAPY 94.44 04/17/13 Assessment/Plan - Problem List Patient Problems: All Active Problems FESTERING WOUND TO RIGHT #1/2 TOES (Acute)
[2018-07-15] MEDS: Ferrous Sulfate 325 MG TAB PO SCH (10:55)
--- NOTE | 2018-07-15 13:16 | Infectious Disease Prog Note ---
Infectious Disease Subjective - Review of Systems Service Date: 07/15/18 Subjective: There is no new change, no fever, Infectious Disease Objective - Results Result Diagrams: 07/15/18 04:15 07/15/18 04:15 Recent Labs: Laboratory Last Values WBC 7.7 Th/cmm (4.8-10.8) 07/15/18 04:15 RBC 3.18 Mil/cmm (3.80-5.80) L 07/15/18 04:15 Hgb 9.9 gm/dL (12-16) L 07/15/18 04:15 Hct 30.0 % (41.0-60) L 07/15/18 04:15 MCV 94.6 fl (80-99) 07/15/18 04:15 MCH 31.1 pg (27.0-31.0) H 07/15/18 04:15 MCHC Differential 32.9 pg (28.0-36.0) 07/15/18 04:15 RDW 12.2 % (11.5-20.0) 07/15/18 04:15 Plt Count 300 Th/cmm (150-400) 07/15/18 04:15 MPV 7.9 fl 07/15/18 04:15 Neutrophils % 70.5 % (40.0-80.0) 07/15/18 04:15 Lymphocytes % 17.4 % (20.0-50.0) L 07/15/18 04:15 Monocytes % 9.0 % (2.0-10.0) 07/15/18 04:15 Eosinophils % 2.8 % (0.0-5.0) 07/15/18 04:15 Basophils % 0.3 % (0.0-2.0) 07/15/18 04:15 ESR 135 mm/hr (0-20) H 07/14/18 12:25 Sodium 140 mEq/L (136-145) 07/15/18 04:15 Potassium 3.6 mEq/L (3.5-5.1) 07/15/18 04:15 Chloride 107 mEq/L (98-107) 07/15/18 04:15 Carbon Dioxide 27.8 mEq/L (21.0-31.0) 07/15/18 04:15 Anion Gap 8.8 (7.0-16.0) 07/15/18 04:15 BUN 48 mg/dL (7-25) H 07/15/18 04:15 Creatinine 1.4 mg/dL (0.7-1.3) H 07/15/18 04:15 Est GFR ( Amer) TNP 07/15/18 04:15 Est GFR (Non-Af Amer) TNP 07/15/18 04:15 BUN/Creatinine Ratio 34.3 07/15/18 04:15 Glucose 75 mg/dL (70-105) D 07/15/18 04:15 POC Glucose 139 MG/DL (70 - 105) H 07/15/18 11:43 Whole Bld Lactic Acid 1.15 mmol/L (0.60-1.99) 07/14/18 12:25 Calcium 9.2 mg/dL (8.6-10.3) 07/15/18 04:15 Phosphorus 1.3 mg/dL (2.5-5.0) L 07/14/18 12:25 Magnesium 2.0 mg/dL (1.9-2.7) 07/14/18 12:25 Total Bilirubin 0.3 mg/dL (0.3-1.0) 07/15/18 04:15 AST 12 U/L (13-39) L 07/15/18 04:15 ALT 6 U/L (7-52) L 07/15/18 04:15 Alkaline Phosphatase 65 U/L (34-104) 07/15/18 04:15 Total Protein 7.2 gm/dL (6.0-8.3) 07/15/18 04:15 Albumin 2.7 gm/dL (4.2-5.5) L 07/15/18 04:15 Globulin 4.5 gm/dL 07/15/18 04:15 Albumin/Globulin Ratio 0.6 (1.0-1.8) L 07/15/18 04:15 Urine Source CLEAN C 07/14/18 13:50 Urine Color YELLOW 07/14/18 13:50 Urine Clarity CLEAR (CLEAR) 07/14/18 13:50 Urine pH 6.0 (4.6 - 8.0) 07/14/18 13:50 Ur Specific [place] 1.010 (1.005-1.030) 07/14/18 13:50 Urine Protein 30 mg/dL (NEGATIVE) H 07/14/18 13:50 Urine Glucose (UA) NEGATIVE mg/dL (NEGATIVE) 07/14/18 13:50 Urine Ketones NEGATIVE mg/dL (NEGATIVE) 07/14/18 13:50 Urine Blood NEGATIVE (NEGATIVE) 07/14/18 13:50 Urine Nitrate NEGATIVE (NEGATIVE) 07/14/18 13:50 Urine Bilirubin NEGATIVE (NEGATIVE) 07/14/18 13:50 Urine Urobilinogen 0.2 E.U./dL (0.2 - 1.0) 07/14/18 13:50 Ur Leukocyte Esterase NEGATIVE (NEGATIVE) 07/14/18 13:50 Urine RBC 0-2 /hpf (0-5) H 07/14/18 13:50 Urine WBC 0-2 /hpf (0-5) 07/14/18 13:50 Ur Epithelial Cells FEW /lpf (FEW) 07/14/18 13:50 Amorphous Sediment MODERATE URATES (NONE SEEN) 07/14/18 13:50 Urine Bacteria 1+ /hpf (NONE SEEN) H 07/14/18 13:50 - Physical Exam Vitals and I&O: Vital Signs Temp 97.2 F 07/15/18 07:59 Pulse 87 07/15/18 07:59 Resp 20 07/15/18 08:00 BP 105/42 07/15/18 07:59 Pulse Ox 95 07/15/18 07:59 Intake & Output 07/14/18 07/15/18 07/15/18 18:59 06:59 18:59 Intake Total 867.5 350 Balance 867.5 350 Weight (lbs) 70.08 kg 71.395 kg Intake: Intake, IV Amount 817.5 200 Clindamycin 600mg/50mL 50 600 mg In 50 ml @ 100 mls /hr IV Q8HR [facility] Rx#: [id number] Lactated Ringer 1,000 ml 717.5 @ 150 mls/hr IV .Q6H40M [facility] Rx#:[id number] ceFAZolin 1 gm In Sodium 50 Chloride 0.9% 50 ml @ 100 mls/hr IV Q8HR [facility] Rx#: [id number] metroNIDAZOLE 500mg/NS 100 100 100mL 500 mg In 100 ml @ 100 mls/hr IV Q6HR [facility] Rx #:[id number] Oral 50 150 Other: # Voids 1 Weight Source Bedscale Bedscale Active Medications: Current Medications Ascorbic Acid (Vitamin C) 500 mg PO DAILY [facility] Stop: 09/13/18 08:59 Last Admin: 07/15/18 10:55 Dose: 500 mg Atorvastatin Calcium (Lipitor) 10 mg PO HS [facility] Stop: 09/12/18 20:59 Last Admin: 07/14/18 20:54 Dose: 10 mg Donepezil HCl (Aricept) 10 mg PO HS [facility] Stop: 09/12/18 20:59 Last Admin: 07/14/18 20:54 Dose: 10 mg Ferrous Sulfate (Iron) 325 mg PO DAILY [facility] Stop: 09/13/18 08:59 Last Admin: 07/15/18 10:55 Dose: 325 mg Folic Acid (Folate) 1 mg PO DAILY [facility] Stop: 09/13/18 08:59 Last Admin: 07/15/18 10:56 Dose: 1 mg Sodium Chloride (Nacl 0.9%) 1,000 mls @ 75 mls/hr IV .[id number] [facility] Stop: 09/12/18 14:31 Last Admin: 07/14/18 16:58 Dose: 75 mls/hr Cefepime HCl 1 gm/ Sodium (Chloride) 50 mls @ 100 mls/hr IV Q12HR [facility] Stop: 09/13/18 08:59 Vancomycin HCl 1 gm/ Sodium (Chloride) 250 mls @ 165 mls/hr IV Q24HR@0900 [facility] Stop: 09/13/18 09:59 Last Admin: 07/15/18 10:39 Dose: 165 mls/hr Insulin Aspart (Novolog Insulin Sliding Scale) 0 units SUBQ Q6HR [facility]; Protocol Stop: 09/12/18 17:59 Last Admin: 07/15/18 12:50 Dose: Not Given Insulin Detemir (Levemir Insulin) 40 units SUBQ DAILY [facility] Stop: 09/13/18 08:59 Last Admin: 07/15/18 11:11 Dose: 40 units Levothyroxine Sodium 0.1 mg/ (Levothyroxine Sodium 0.0375 mg) 0.1375 mg PO QDAC [facility] Stop: 09/13/18 07:29 Last Admin: 07/15/18 06:39 Dose: 0.1375 mg Lorazepam (Ativan) 1 mg PO Q8HR PRN; Protocol PRN Reason: Agitation Stop: 09/13/18 10:27 Last Admin: 07/15/18 10:55 Dose: 1 mg Megestrol Acetate (Megace) 40 mg PO BID [facility]; Protocol Stop: 09/12/18 16:59 Last Admin: 07/15/18 10:55 Dose: 40 mg Metformin HCl (Glucophage) 850 mg PO TID [facility] Stop: 09/13/18 08:59 Last Admin: 07/15/18 10:56 Dose: 850 mg Miscellaneous (Vancomycin Iv Per Pharmacy) 1 ea MC PRN [facility] Stop: 09/13/18 02:29 Tamsulosin HCl (Flomax) 0.4 mg PO QPM [facility] Stop: 09/12/18 16:59 Last Admin: 07/14/18 17:21 Dose: 0.4 mg General: no acute distress, well developed, well nourished HEENT: atraumatic, normocephalic, PERRLA Neck: supple, thyromegaly Cardiovascular: S1S2, regular Lungs: clear to auscultation bilaterally, clear to percussion Abdomen: soft, no tender, no distended, no mass Extremities: other ( Patient has some right big toe ulcer with the tender erythematous swelling. There is a necrotic lesion on the superomedial aspect of the proximal big toe. This small ulceration of other part of the distal big toe. The erythema has extended to the forefoot. There is some superficial ulceration of second toe also also. The skin is scaly.), no cyanosis, no clubbing, no edema Neurological: awake, alert - Procedures Procedures: Procedures Procedure Code Date OTHER GROUP THERAPY 94.44 04/17/13 Infectious Disease Assmt/Plan - Problem List Patient Problems: All Active Problems FESTERING WOUND TO RIGHT #1/2 TOES (Acute) - Assessment Assessment: 1. Cellulitis of the right big toe and foot. Rule out posterior mellitus. PERRLA peripheral artery disease. 2. Dementia. 3. Diabetes mellitus type 2. 4. Hypertension. 5. Carotid disease. 6. Atrial fibrillation. 7. Hypothyroidism. 8. BPH. - Plan Plan: Continue vanco IV and cefepime.
[2018-07-15] MEDS: Cefepime 1 GM in Sodium Chloride 0.9% 50 ML IV SCH ×2 (13:30→23:45)
--- NOTE | 2018-07-15 13:35 | Diagnostic Imaging Report ---
Right lower extremity Doppler venous ultrasound exam HISTORY: Pain/swelling Sonographic sector images were obtained through the deep venous systems of the right leg. Associated Doppler data was obtained. The exam demonstrates patency of the common femoral, superficial femoral, popliteal, and posterior tibial veins. Specifically, no thrombus is seen. There are normal compressibility and augmentation responses. IMPRESSION: Negative exam for deep vein thrombophlebitis.
--- NOTE | 2018-07-15 13:38 | Diagnostic Imaging Report ---
Bilateral lower extremity Doppler arterial ultrasound exam HISTORY: Cellulitis, pain Sonographic sector images obtained through the arterial systems of both legs. Associated Doppler data was obtained. The exam of the right leg demonstrates triphasic waveforms within the common femoral and proximal portion of the right superficial femoral arteries. Abnormal monophasic waveforms are noted within the distal superficial femoral artery as well as within the anterior tibial, posterior tibial, dorsalis pedis arteries. Biphasic waveforms are seen within the popliteal artery. There is an increase in velocity noted within the distal portion of the superficial femoral artery and an abnormal decrease in velocity within the right posterior tibial artery region. The ankle-brachial index is slightly decreased (0.8). Sonographic images demonstrate evidence of severe diffuse atherosclerotic plaque throughout the arterial system most pronounced from below the midportion of the superficial femoral artery. The exam of the left leg demonstrates biphasic waveforms within the common femoral, superficial femoral, popliteal arteries. Abnormal monophasic waveforms noted within the left anterior tibial, posterior tibial, dorsalis pedis arteries. There is a markedly decrease in velocity noted within the vessels below the knee. Sonographic images demonstrate diffuse severe atherosclerotic changes. The ankle-brachial index remains normal (1.0). IMPRESSION: 1. Evidence of severe diffuse atherosclerotic changes throughout the right leg and moderate to severe changes through the arterial system of the left leg. A CT angiographic examination would provide additional detail and assessment if needed.
--- NOTE | 2018-07-15 19:01 | History & Physical ---
ADMIT DATE: 07/15/2018 REQUESTING PHYSICIAN: Dr. Jackson. REASON FOR CONSULTATION: Agitation and paranoia. HISTORY OF PRESENT ILLNESS: The patient is an 87-year-old male admitted for cellulitis of the lower extremity and a psychiatric consultation is called to address the issue of the paranoia and agitation. Chart is reviewed. The patient is interviewed. During the interview, the patient has been very irritable and is stating there is nothing wrong with him. The patient has been having difficult time to understand. The review of the chart indicated that the patient has been on Aricept 10 mg at bedtime and also has been able to comply with the medication, but is not able to give a coherent history. The patient is getting easily irritable at this time. The patient's coping skills are noted to be very poor. The patient is currently on vancomycin and antibiotic treatment. Sleep is noted to be poor. Appetite is also noted to be fair at this time. PAST PSYCHIATRIC HISTORY: Details are not known. MEDICAL HISTORY: The patient has been diagnosed to have diabetes mellitus and is on insulin and also on metformin. MENTAL EXAMINATION: The patient is an 87-year-old thin built, superficially cooperative. Eye contact is poor. Mood is noted to be irritable. Affect is constricted. Insight and judgment at this time are noted to be still impaired. Impulse control is noted to be limited. The patient has been getting easily frustrated. Paranoia is noted. The patient has both short and long-term memory deficits. DIAGNOSTIC IMPRESSION: AXIS I: Dementia and behavioral change, secondary trait. PLAN: To continue the patient with the supportive therapy and followup. Thank you, Dr. Jackson for allowing me to participate in the care of the patient. JOB# [id number]
[2018-07-15] MEDS: Atorvastatin Calcium 10 MG TAB PO SCH (21:06)
[2018-07-15] MEDS ORDERED: Dextrose 50% 50 mL Abboject IVP ONE (21:31)
[2018-07-16] MEDS: INSULIN ASPART SLIDING SCALE 100 UNITS/ML UNIT SUBQ SCH (00:15)
[2018-07-16] MEDS ORDERED: Dextrose 50% 50 mL Abboject IVP ONE (04:06)
[2018-07-16] MEDS: D5-0.9%NS 1,000 ML IV SCH (04:29)
[2018-07-16 04:40] LABS: % BASOPHILS 0.5 % (0.0-2.0); % EOSINOPHILS 1.4 % (0.0-5.0); % LYMPHOCYTES 24.8 % (20.0-50.0); % MONOCYTES 8.6 % (2.0-10.0); % NEUTROPHILS 64.7 % (40.0-80.0); EOSINOPHILE ABSOLUTE 0.1 Th/cmm (0.1-0.4); HEMOGLOBIN 9.7 gm/dL (12-16); LYMPHOCYTE ABSOLUTE 1.6 Th/cmm (1.5-3.0); MEAN CELL VOLUME 93.9 fl (80-99); MEAN CORPUSCULAR HEMOGLOBIN 31.5 pg (27.0-31.0); MEAN CORPUSCULAR HGB CONC 33.5 pg (28.0-36.0); MEAN PLATELET VOLUME 7.6 fl; MONOCYTE ABSOLUTE 0.6 Th/cmm (0.3-1.0); NEUTROPHILE ABSOLUTE 4.1 Th/cmm (1.8-8.0); PLATELET COUNT 290 Th/cmm (150-400); RED BLOOD COUNT 3.09 Mil/cmm (3.80-5.80); RED CELL DISTRIBUTION WIDTH 12.2 % (11.5-20.0); WHITE BLOOD COUNT 6.4 Th/cmm (4.8-10.8)
[2018-07-16 05:23] LABS: ALB/GLOB RATIO 0.7 (1.0-1.8); ALBUMIN 2.6 gm/dL (4.2-5.5); ALKALINE PHOSPHATASE 55 U/L (34-104); ANION GAP 10.6 (7.0-16.0); BILIRUBIN,TOTAL 0.3 mg/dL (0.3-1.0); BUN - UREA NITROGEN 39 mg/dL (7-25); CALCIUM SERUM 8.5 mg/dL (8.6-10.3); CARBON DIOXIDE 23.9 mEq/L (21.0-31.0); CHLORIDE 110 mEq/L (98-107); CREATININE - SERUM 1.2 mg/dL (0.7-1.3); POTASSIUM SERUM 3.5 mEq/L (3.5-5.1); SGOT 16 U/L (13-39); SGPT/ALT 5 U/L (7-52); SODIUM SERUM 141 mEq/L (136-145); TOTAL PROTEIN,SERUM 6.6 gm/dL (6.0-8.3)
[2018-07-16 05:42] LABS: GLUCOSE 40 mg/dL (70-105)
[2018-07-16] MEDS: LEVOTHYROXINE PO SCH (06:34)
[2018-07-16] MEDS: Ferrous Sulfate 325 MG TAB PO SCH (09:27)
[2018-07-16] MEDS: Cefepime 1 GM in Sodium Chloride 0.9% 50 ML IV SCH (11:26)
[2018-07-16] MEDS: Dabigatran Mesylate 75 mg Cap PO SCH ×2 (11:54→17:21)
--- NOTE | 2018-07-16 11:55 | General Progress Note ---
Subjective - Review of Systems Service Date: 07/16/18 Events since last encounter: doppler - severe PVD discussed with Dr. Jackson, patient non ambulatory high BUN, CTA not recommended suggest amputation of right foot, message left with daughter hold Nat Objective - Results Result Diagrams: 07/16/18 04:20 07/16/18 04:20 Recent Labs: Laboratory Last Values WBC 6.4 Th/cmm (4.8-10.8) 07/16/18 04:20 RBC 3.09 Mil/cmm (3.80-5.80) L 07/16/18 04:20 Hgb 9.7 gm/dL (12-16) L 07/16/18 04:20 Hct 29.0 % (41.0-60) L 07/16/18 04:20 MCV 93.9 fl (80-99) 07/16/18 04:20 MCH 31.5 pg (27.0-31.0) H 07/16/18 04:20 MCHC Differential 33.5 pg (28.0-36.0) 07/16/18 04:20 RDW 12.2 % (11.5-20.0) 07/16/18 04:20 Plt Count 290 Th/cmm (150-400) 07/16/18 04:20 MPV 7.6 fl 07/16/18 04:20 Neutrophils % 64.7 % (40.0-80.0) 07/16/18 04:20 Lymphocytes % 24.8 % (20.0-50.0) 07/16/18 04:20 Monocytes % 8.6 % (2.0-10.0) 07/16/18 04:20 Eosinophils % 1.4 % (0.0-5.0) 07/16/18 04:20 Basophils % 0.5 % (0.0-2.0) 07/16/18 04:20 ESR 135 mm/hr (0-20) H 07/14/18 12:25 Sodium 141 mEq/L (136-145) 07/16/18 04:20 Potassium 3.5 mEq/L (3.5-5.1) 07/16/18 04:20 Chloride 110 mEq/L (98-107) H 07/16/18 04:20 Carbon Dioxide 23.9 mEq/L (21.0-31.0) 07/16/18 04:20 Anion Gap 10.6 (7.0-16.0) 07/16/18 04:20 BUN 39 mg/dL (7-25) H 07/16/18 04:20 Creatinine 1.2 mg/dL (0.7-1.3) 07/16/18 04:20 Est GFR ( Amer) TNP 07/16/18 04:20 Est GFR (Non-Af Amer) TNP 07/16/18 04:20 BUN/Creatinine Ratio 32.5 07/16/18 04:20 Glucose 40 mg/dL (70-105) L* 07/16/18 04:20 POC Glucose 129 MG/DL (70 - 105) H 07/16/18 11:35 Whole Bld Lactic Acid 1.15 mmol/L (0.60-1.99) 07/14/18 12:25 Calcium 8.5 mg/dL (8.6-10.3) L 07/16/18 04:20 Phosphorus 1.3 mg/dL (2.5-5.0) L 07/14/18 12:25 Magnesium 2.0 mg/dL (1.9-2.7) 07/14/18 12:25 Total Bilirubin 0.3 mg/dL (0.3-1.0) 07/16/18 04:20 AST 16 U/L (13-39) 07/16/18 04:20 ALT 5 U/L (7-52) L 07/16/18 04:20 Alkaline Phosphatase 55 U/L (34-104) 07/16/18 04:20 Total Protein 6.6 gm/dL (6.0-8.3) 07/16/18 04:20 Albumin 2.6 gm/dL (4.2-5.5) L 07/16/18 04:20 Globulin 4.0 gm/dL 07/16/18 04:20 Albumin/Globulin Ratio 0.7 (1.0-1.8) L 07/16/18 04:20 TSH 2.74 uIU/ml (0.34-5.60) 07/16/18 04:20 Urine Source CLEAN C 07/14/18 13:50 Urine Color YELLOW 07/14/18 13:50 Urine Clarity CLEAR (CLEAR) 07/14/18 13:50 Urine pH 6.0 (4.6 - 8.0) 07/14/18 13:50 Ur Specific [place] 1.010 (1.005-1.030) 07/14/18 13:50 Urine Protein 30 mg/dL (NEGATIVE) H 07/14/18 13:50 Urine Glucose (UA) NEGATIVE mg/dL (NEGATIVE) 07/14/18 13:50 Urine Ketones NEGATIVE mg/dL (NEGATIVE) 07/14/18 13:50 Urine Blood NEGATIVE (NEGATIVE) 07/14/18 13:50 Urine Nitrate NEGATIVE (NEGATIVE) 07/14/18 13:50 Urine Bilirubin NEGATIVE (NEGATIVE) 07/14/18 13:50 Urine Urobilinogen 0.2 E.U./dL (0.2 - 1.0) 07/14/18 13:50 Ur Leukocyte Esterase NEGATIVE (NEGATIVE) 07/14/18 13:50 Urine RBC 0-2 /hpf (0-5) H 07/14/18 13:50 Urine WBC 0-2 /hpf (0-5) 07/14/18 13:50 Ur Epithelial Cells FEW /lpf (FEW) 07/14/18 13:50 Amorphous Sediment MODERATE URATES (NONE SEEN) 07/14/18 13:50 Urine Bacteria 1+ /hpf (NONE SEEN) H 07/14/18 13:50 Vancomycin Trough 12.1 ug/mL (5-10) H 07/16/18 04:20 - Physical Exam Vitals and I&O: Vital Signs Temp 98.3 F 07/16/18 06:00 Pulse 87 07/16/18 06:00 Resp 20 07/16/18 08:00 BP 106/45 07/16/18 06:00 Pulse Ox 99 07/16/18 06:00 Intake & Output 07/15/18 07/16/18 07/16/18 18:59 06:59 18:59 Intake Total 300 530 150 Balance 300 530 150 Weight (lbs) 71.214 kg 76.657 kg Intake: Intake, IV Amount 300 50 Cefepime 1 gm In Sodium 50 50 Chloride 0.9% 50 ml @ 100 mls/hr IV Q12HR [facility] Rx#: [id number] Vancomycin HCl 1 gm In 250 Sodium Chloride 0.9% 250 ml @ 165 mls/hr IV Q24HR@ 0900 [facility] Rx#:[id number] Oral 480 150 Other: # Voids 3 4 # Bowel Movements 0 1 Weight Source Bedscale Bedscale Active Medications: Current Medications Ascorbic Acid (Vitamin C) 500 mg PO DAILY [facility] Stop: 09/13/18 08:59 Last Admin: 07/16/18 09:27 Dose: 500 mg Atorvastatin Calcium (Lipitor) 10 mg PO HS [facility] Stop: 09/12/18 20:59 Last Admin: 07/15/18 21:06 Dose: 10 mg Donepezil HCl (Aricept) 10 mg PO HS [facility] Stop: 09/12/18 20:59 Last Admin: 07/15/18 21:06 Dose: 10 mg Ferrous Sulfate (Iron) 325 mg PO DAILY [facility] Stop: 09/13/18 08:59 Last Admin: 07/16/18 09:27 Dose: 325 mg Folic Acid (Folate) 1 mg PO DAILY [facility] Stop: 09/13/18 08:59 Last Admin: 07/16/18 09:27 Dose: 1 mg Cefepime HCl 1 gm/ Sodium (Chloride) 50 mls @ 100 mls/hr IV Q12HR [facility] Stop: 09/13/18 08:59 Last Admin: 07/16/18 11:26 Dose: 100 mls/hr Vancomycin HCl 1 gm/ Sodium (Chloride) 250 mls @ 165 mls/hr IV Q24HR@0900 [facility] Stop: 09/13/18 09:59 Last Admin: 07/16/18 09:28 Dose: 165 mls/hr Dextrose/Sodium Chloride (D5-0.9%Ns) 1,000 mls @ 90 mls/hr IV .Q11H7M [facility] Stop: 09/14/18 04:29 Last Admin: 07/16/18 04:29 Dose: 90 mls/hr Levothyroxine Sodium 0.1 mg/ (Levothyroxine Sodium 0.0375 mg) 0.1375 mg PO QDAC [facility] Stop: 09/13/18 07:29 Last Admin: 07/16/18 06:34 Dose: 0.1375 mg Lorazepam (Ativan) 1 mg PO Q8HR PRN; Protocol PRN Reason: Agitation Stop: 09/13/18 10:27 Last Admin: 07/15/18 21:06 Dose: 1 mg Megestrol Acetate (Megace) 40 mg PO BID [facility]; Protocol Stop: 09/12/18 16:59 Last Admin: 07/16/18 09:27 Dose: 40 mg Miscellaneous (Vancomycin Iv Per Pharmacy) 1 ea MC PRN [facility] Stop: 09/13/18 02:29 Tamsulosin HCl (Flomax) 0.4 mg PO QPM [facility] Stop: 09/12/18 16:59 Last Admin: 07/15/18 16:10 Dose: 0.4 mg - Procedures Procedures: Procedures Procedure Code Date OTHER GROUP THERAPY 94.44 04/17/13 Assessment/Plan - Problem List Patient Problems: All Active Problems FESTERING WOUND TO RIGHT #1/2 TOES (Acute) Nutritional Asmnt/Malnutr-PDOC - Dietary Evaluation Malnutrition Findings (Please click <Entered> for more info): Nutritional Asmnt/Malnutrition Start: 07/15/18 14: 55 Text: Status: Complete Freq: Protocol: Document 07/15/18 14:57 WILLIAM (Rec: 07/15/18 15:33 [email or web address]) Nutritional Asmnt/Malnutrition Patient General Information Nutritional Screening High Risk Diagnosis cellulitis Pertinent Medical Hx/Surgical Hx AFIB, CAD, CHF, HTN, dementia, schizophrenia, DM, hypothyroidism, cellulitis, benign prostatic enlarge Subjective Information Pt receiving an ultrasound by nursing staff at time of visit ; RD unable to speak w/ pt. Per EMR, pt finished 50% of dinner on day of admit. Current Diet Order/ Nutrition Support [facility] soft ground, CCHO, nectar thick liquids, fortified w/ 8 oz HPN TID Pertinent Medications Vit C, lipitor, iron, folate, novolog, levemir, megace, glucophage, vancomycin, Nacl 0 .9%, Pertinent Labs 07/15: BUN 48, Cr 1.4, glucose 75, POC 110-121, Alb 2.7 07/14: BUN 51, Cr 1.6, glucose 185, POC 83-203, Alb 3.0, Phos 1.3 Nutritional Hx/Data Height 1.78 m Height (Calculated Centimeters) 177.8 Current Weight (lbs) 71.395 kg Weight (Calculated Kilograms) 71.4 Weight (Calculated Grams) 51342.4 [place] Body Weight 166 lb Body Mass Index (BMI) 22.6 Weight Status Approriate GI Symptoms GI Symptoms None Last BM none noted Difficult in: None Food Allergies No Skin Integrity/Comment: reddened and bruise right big toe, reddened pressure area to right knee, lacerations to rt /lt legs, edema on right foot Estimated Nutritional Goals BEE in Kcals: Using Current wt Calories/Kcals/Kg 25-30 Kcals Calculated 2547-0823 Protein: Using Current wt Protein g/k-1.2 Protein Calculated 72-86g Fluid: ml 7284-9473 (1 ml/kcal) Nutritional Problem 1. Problem Problem Altered nutrition related lab values Etiology hx of DM and dehydration/renal insufficiency per ED note Signs/Symptoms: BUN 48, Cr 1.4, POC 110-121 Malnutrition Alert Is there a minimum of two criteria No selected? Query Text:Check all the applicable criteria. A minimum of two criteria are recommended for diagnosis of either severe or non-severe malnutrition. Malnutrition Related to Morbid Obesity Malnutrition related to morbid obesity No Intervention/Recommendation Comments 1. Continue with [facility] soft ground, CCHO, nectar thick liquid diet as ordered. Supplement w/ glucerna shake TID as ordered 2. MD to monitor insulin regimen for optimal glycemic control and monitor hydration status 3. Monitor PO intake, wt, labs and skin integrity 4. F/U as moderate risk in 3-5 days, 07/18-07/20 Expected Outcomes/Goals Expected Outcomes/Goals 1. PO intake to meet at least 75% of nutritional needs 2. Wt stability, skin integrity to improve, and nutrition related labs to approach normal limits Reviewed by Beatrice Smith RD
--- NOTE | 2018-07-16 13:28 | Infectious Disease Prog Note ---
Infectious Disease Subjective - Review of Systems Service Date: 07/16/18 Subjective: There is no new change, no fever, Infectious Disease Objective - Results Result Diagrams: 07/16/18 04:20 07/16/18 04:20 Recent Labs: Laboratory Last Values WBC 6.4 Th/cmm (4.8-10.8) 07/16/18 04:20 RBC 3.09 Mil/cmm (3.80-5.80) L 07/16/18 04:20 Hgb 9.7 gm/dL (12-16) L 07/16/18 04:20 Hct 29.0 % (41.0-60) L 07/16/18 04:20 MCV 93.9 fl (80-99) 07/16/18 04:20 MCH 31.5 pg (27.0-31.0) H 07/16/18 04:20 MCHC Differential 33.5 pg (28.0-36.0) 07/16/18 04:20 RDW 12.2 % (11.5-20.0) 07/16/18 04:20 Plt Count 290 Th/cmm (150-400) 07/16/18 04:20 MPV 7.6 fl 07/16/18 04:20 Neutrophils % 64.7 % (40.0-80.0) 07/16/18 04:20 Lymphocytes % 24.8 % (20.0-50.0) 07/16/18 04:20 Monocytes % 8.6 % (2.0-10.0) 07/16/18 04:20 Eosinophils % 1.4 % (0.0-5.0) 07/16/18 04:20 Basophils % 0.5 % (0.0-2.0) 07/16/18 04:20 ESR 135 mm/hr (0-20) H 07/14/18 12:25 Sodium 141 mEq/L (136-145) 07/16/18 04:20 Potassium 3.5 mEq/L (3.5-5.1) 07/16/18 04:20 Chloride 110 mEq/L (98-107) H 07/16/18 04:20 Carbon Dioxide 23.9 mEq/L (21.0-31.0) 07/16/18 04:20 Anion Gap 10.6 (7.0-16.0) 07/16/18 04:20 BUN 39 mg/dL (7-25) H 07/16/18 04:20 Creatinine 1.2 mg/dL (0.7-1.3) 07/16/18 04:20 Est GFR ( Amer) TNP 07/16/18 04:20 Est GFR (Non-Af Amer) TNP 07/16/18 04:20 BUN/Creatinine Ratio 32.5 07/16/18 04:20 Glucose 40 mg/dL (70-105) L* 07/16/18 04:20 POC Glucose 129 MG/DL (70 - 105) H 07/16/18 11:35 Whole Bld Lactic Acid 1.15 mmol/L (0.60-1.99) 07/14/18 12:25 Calcium 8.5 mg/dL (8.6-10.3) L 07/16/18 04:20 Phosphorus 1.3 mg/dL (2.5-5.0) L 07/14/18 12:25 Magnesium 2.0 mg/dL (1.9-2.7) 07/14/18 12:25 Total Bilirubin 0.3 mg/dL (0.3-1.0) 07/16/18 04:20 AST 16 U/L (13-39) 07/16/18 04:20 ALT 5 U/L (7-52) L 07/16/18 04:20 Alkaline Phosphatase 55 U/L (34-104) 07/16/18 04:20 Total Protein 6.6 gm/dL (6.0-8.3) 07/16/18 04:20 Albumin 2.6 gm/dL (4.2-5.5) L 07/16/18 04:20 Globulin 4.0 gm/dL 07/16/18 04:20 Albumin/Globulin Ratio 0.7 (1.0-1.8) L 07/16/18 04:20 TSH 2.74 uIU/ml (0.34-5.60) 07/16/18 04:20 Urine Source CLEAN C 07/14/18 13:50 Urine Color YELLOW 07/14/18 13:50 Urine Clarity CLEAR (CLEAR) 07/14/18 13:50 Urine pH 6.0 (4.6 - 8.0) 07/14/18 13:50 Ur Specific [place] 1.010 (1.005-1.030) 07/14/18 13:50 Urine Protein 30 mg/dL (NEGATIVE) H 07/14/18 13:50 Urine Glucose (UA) NEGATIVE mg/dL (NEGATIVE) 07/14/18 13:50 Urine Ketones NEGATIVE mg/dL (NEGATIVE) 07/14/18 13:50 Urine Blood NEGATIVE (NEGATIVE) 07/14/18 13:50 Urine Nitrate NEGATIVE (NEGATIVE) 07/14/18 13:50 Urine Bilirubin NEGATIVE (NEGATIVE) 07/14/18 13:50 Urine Urobilinogen 0.2 E.U./dL (0.2 - 1.0) 07/14/18 13:50 Ur Leukocyte Esterase NEGATIVE (NEGATIVE) 07/14/18 13:50 Urine RBC 0-2 /hpf (0-5) H 07/14/18 13:50 Urine WBC 0-2 /hpf (0-5) 07/14/18 13:50 Ur Epithelial Cells FEW /lpf (FEW) 07/14/18 13:50 Amorphous Sediment MODERATE URATES (NONE SEEN) 07/14/18 13:50 Urine Bacteria 1+ /hpf (NONE SEEN) H 07/14/18 13:50 Vancomycin Trough 12.1 ug/mL (5-10) H 07/16/18 04:20 - Physical Exam Vitals and I&O: Vital Signs Temp 98.3 F 07/16/18 06:00 Pulse 87 07/16/18 06:00 Resp 20 07/16/18 08:00 BP 106/45 07/16/18 06:00 Pulse Ox 99 07/16/18 06:00 Intake & Output 07/15/18 07/16/18 07/16/18 18:59 06:59 18:59 Intake Total 300 530 150 Balance 300 530 150 Weight (lbs) 71.214 kg 76.657 kg Intake: Intake, IV Amount 300 50 Cefepime 1 gm In Sodium 50 50 Chloride 0.9% 50 ml @ 100 mls/hr IV Q12HR [facility] Rx#: [id number] Vancomycin HCl 1 gm In 250 Sodium Chloride 0.9% 250 ml @ 165 mls/hr IV Q24HR@ 0900 [facility] Rx#:[id number] Oral 480 150 Other: # Voids 3 4 # Bowel Movements 0 1 Weight Source Bedscale Bedscale Active Medications: Current Medications Ascorbic Acid (Vitamin C) 500 mg PO DAILY [facility] Stop: 09/13/18 08:59 Last Admin: 07/16/18 09:27 Dose: 500 mg Atorvastatin Calcium (Lipitor) 10 mg PO HS [facility] Stop: 09/12/18 20:59 Last Admin: 07/15/18 21:06 Dose: 10 mg Donepezil HCl (Aricept) 10 mg PO HS [facility] Stop: 09/12/18 20:59 Last Admin: 07/15/18 21:06 Dose: 10 mg Ferrous Sulfate (Iron) 325 mg PO DAILY [facility] Stop: 09/13/18 08:59 Last Admin: 07/16/18 09:27 Dose: 325 mg Folic Acid (Folate) 1 mg PO DAILY [facility] Stop: 09/13/18 08:59 Last Admin: 07/16/18 09:27 Dose: 1 mg Cefepime HCl 1 gm/ Sodium (Chloride) 50 mls @ 100 mls/hr IV Q12HR [facility] Stop: 09/13/18 08:59 Last Admin: 07/16/18 11:26 Dose: 100 mls/hr Vancomycin HCl 1 gm/ Sodium (Chloride) 250 mls @ 165 mls/hr IV Q24HR@0900 [facility] Stop: 09/13/18 09:59 Last Admin: 07/16/18 09:28 Dose: 165 mls/hr Dextrose/Sodium Chloride (D5-0.9%Ns) 1,000 mls @ 90 mls/hr IV .Q11H7M [facility] Stop: 09/14/18 04:29 Last Admin: 07/16/18 04:29 Dose: 90 mls/hr Levothyroxine Sodium 0.1 mg/ (Levothyroxine Sodium 0.0375 mg) 0.1375 mg PO QDAC [facility] Stop: 09/13/18 07:29 Last Admin: 07/16/18 06:34 Dose: 0.1375 mg Lorazepam (Ativan) 1 mg PO Q8HR PRN; Protocol PRN Reason: Agitation Stop: 09/13/18 10:27 Last Admin: 07/16/18 13:25 Dose: 1 mg Megestrol Acetate (Megace) 40 mg PO BID [facility]; Protocol Stop: 09/12/18 16:59 Last Admin: 07/16/18 09:27 Dose: 40 mg Miscellaneous (Vancomycin Iv Per Pharmacy) 1 ea [facility] PRN [facility] Stop: 09/13/18 02:29 Tamsulosin HCl (Flomax) 0.4 mg PO QPM [facility] Stop: 09/12/18 16:59 Last Admin: 07/15/18 16:10 Dose: 0.4 mg General: no acute distress, well developed, well nourished HEENT: atraumatic, normocephalic, PERRLA, EOMI Neck: supple, no thyromegaly Cardiovascular: S1S2, regular Lungs: clear to auscultation bilaterally, clear to percussion Abdomen: soft, no tender, no distended Extremities: other ( Patient has some right big toe ulcer with the tender erythematous swelling. There is a necrotic lesion on the superomedial aspect of the proximal big toe. This small ulceration of other part of the distal big toe. The erythema has extended to the forefoot. There is some superficial ulceration of second toe also also. The skin is scaly.), no cyanosis, no clubbing, no edema - Procedures Procedures: Procedures Procedure Code Date OTHER GROUP THERAPY 94.44 04/17/13 Infectious Disease Assmt/Plan - Problem List Patient Problems: All Active Problems FESTERING WOUND TO RIGHT #1/2 TOES (Acute) - Assessment Assessment: 1. Cellulitis of the right big toe and foot. Rule out posterior mellitus. PERRLA peripheral artery disease. 2. Dementia. 3. Diabetes mellitus type 2. 4. Hypertension. 5. Carotid disease. 6. Atrial fibrillation. 7. Hypothyroidism. 8. BPH. 9. PAD. - Plan Plan: Change antibiotic to Rocephin. Wound care. Nutritional Asmnt/Malnutr-PDOC - Dietary Evaluation Malnutrition Findings (Please click <Entered> for more info): Nutritional Asmnt/Malnutrition Start: 07/15/18 14: 55 Text: Status: Complete Freq: Protocol: Document 07/15/18 14:57 WILLIAM (Rec: 07/15/18 15:33 WILLIAM [email or web address]) Nutritional Asmnt/Malnutrition Patient General Information Nutritional Screening High Risk Diagnosis cellulitis Pertinent Medical Hx/Surgical Hx AFIB, CAD, CHF, HTN, dementia, schizophrenia, DM, hypothyroidism, cellulitis, benign prostatic enlarge Subjective Information Pt receiving an ultrasound by nursing staff at time of visit ; RD unable to speak w/ pt. Per EMR, pt finished 50% of dinner on day of admit. Current Diet Order/ Nutrition Support [facility] soft ground, CCHO, nectar thick liquids, fortified w/ 8 oz HPN TID Pertinent Medications Vit C, lipitor, iron, folate, novolog, levemir, megace, glucophage, vancomycin, Nacl 0 .9%, Pertinent Labs 07/15: BUN 48, Cr 1.4, glucose 75, POC 110-121, Alb 2.7 07/14: BUN 51, Cr 1.6, glucose 185, POC 83-203, Alb 3.0, Phos 1.3 Nutritional Hx/Data Height 1.78 m Height (Calculated Centimeters) 177.8 Current Weight (lbs) 71.395 kg Weight (Calculated Kilograms) 71.4 Weight (Calculated Grams) 58584.4 [place] Body Weight 166 lb Body Mass Index (BMI) 22.6 Weight Status Approriate GI Symptoms GI Symptoms None Last BM none noted Difficult in: None Food Allergies No Skin Integrity/Comment: reddened and bruise right big toe, reddened pressure area to right knee, lacerations to rt /lt legs, edema on right foot Estimated Nutritional Goals BEE in Kcals: Using Current wt Calories/Kcals/Kg 25-30 Kcals Calculated 5326-7115 Protein: Using Current wt Protein g/k-1.2 Protein Calculated 72-86g Fluid: ml 2556-5309 (1 ml/kcal) Nutritional Problem 1. Problem Problem Altered nutrition related lab values Etiology hx of DM and dehydration/renal insufficiency per ED note Signs/Symptoms: BUN 48, Cr 1.4, POC 110-121 Malnutrition Alert Is there a minimum of two criteria No selected? Query Text:Check all the applicable criteria. A minimum of two criteria are recommended for diagnosis of either severe or non-severe malnutrition. Malnutrition Related to Morbid Obesity Malnutrition related to morbid obesity No Intervention/Recommendation Comments 1. Continue with [facility] soft ground, CCHO, nectar thick liquid diet as ordered. Supplement w/ glucerna shake TID as ordered 2. MD to monitor insulin regimen for optimal glycemic control and monitor hydration status 3. Monitor PO intake, wt, labs and skin integrity 4. F/U as moderate risk in 3-5 days, 07/18-07/20 Expected Outcomes/Goals Expected Outcomes/Goals 1. PO intake to meet at least 75% of nutritional needs 2. Wt stability, skin integrity to improve, and nutrition related labs to approach normal limits Reviewed by Beatrice Smith RD
--- NOTE | 2018-07-16 14:49 | Diagnostic Imaging Report ---
Radionuclide 3 phase bone scan of the feet HISTORY: Osteomyelitis (left first toe) 25.8 mCi technetium MDP used in the exam. Initial perfusion/blood flow and subsequent blood pool and delayed images obtained. The exam is extremely limited and compromised due to patient motion. Discrete margins of the bony structures the foot cannot be defined. Initial perfusion images demonstrate suggestion of focal increased activity in the vicinity of the left and right first toe. Similarly, delayed images demonstrate focal increased activity that may be in the vicinity of the right and left first toe areas. Changes are equivocal. IMPRESSION: 1. Extremely Limited/suboptimal exam. Equivocal changes associated with osteomyelitis involving the right and left first toes cannot be excluded based upon this examination.
[2018-07-16] MEDS: cefTRIAXone 2 GM in Sodium Chloride 0.9% 100 ML IV SCH (15:32)
[2018-07-16] MEDS: Atorvastatin Calcium 10 MG TAB PO SCH (22:39)
[2018-07-17] MEDS: INSULIN ASPART SLIDING SCALE 100 UNITS/ML UNIT SUBQ SCH ×4 (00:56→19:12)
[2018-07-17] MEDS: D5-0.9%NS 1,000 ML IV SCH ×2 (00:57→16:46)
[2018-07-17 06:03] LABS: % BASOPHILS 0.6 % (0.0-2.0); % EOSINOPHILS 6.7 % (0.0-5.0); % LYMPHOCYTES 21.6 % (20.0-50.0); % MONOCYTES 9.2 % (2.0-10.0); % NEUTROPHILS 61.9 % (40.0-80.0); EOSINOPHILE ABSOLUTE 0.3 Th/cmm (0.1-0.4); HEMOGLOBIN 10.2 gm/dL (12-16); LYMPHOCYTE ABSOLUTE 1.1 Th/cmm (1.5-3.0); MEAN PLATELET VOLUME 7.1 fl; MONOCYTE ABSOLUTE 0.5 Th/cmm (0.3-1.0); NEUTROPHILE ABSOLUTE 3.1 Th/cmm (1.8-8.0); PLATELET COUNT 312 Th/cmm (150-400); RED CELL DISTRIBUTION WIDTH 12.3 % (11.5-20.0)
[2018-07-17 06:24] LABS: INR 1.06 (0.5-1.4)
[2018-07-17 06:36] LABS: ANION GAP 10.6 (7.0-16.0); BUN - UREA NITROGEN 26 mg/dL (7-25); CALCIUM SERUM 8.4 mg/dL (8.6-10.3); CHLORIDE 108 mEq/L (98-107); CHOLESTEROL 70 mg/dL (<200); CREATININE - SERUM 1.1 mg/dL (0.7-1.3); GLUCOSE 179 mg/dL (70-105); HDL -HIGH DENSITY LIPOPROTEIN 19 mg/dL (23-92); MAGNESIUM 1.9 mg/dL (1.9-2.7); POTASSIUM SERUM 3.6 mEq/L (3.5-5.1); SODIUM SERUM 137 mEq/L (136-145); TRIGLYCERIDES 102 mg/dL (<150)
[2018-07-17] MEDS: LEVOTHYROXINE PO SCH (06:58)
[2018-07-17] MEDS ORDERED: fentaNYL Citrate 100 mcg/2mL Vial ONE (07:43)
[2018-07-17] MEDS ORDERED: Propofol **SURGERY USE ONLY** 20 ML IV ONE (07:48)
[2018-07-17] MEDS ORDERED: Neostigmine 10mg/10mL Vial ONE (07:48)
--- NOTE | 2018-07-17 08:50 | Diagnostic Imaging Report ---
Exam: Chest x-ray single view History: Preop Comparison: 01/19/2014 The heart size is normal. No focal pulmonary parenchymal processes. No hilar or mediastinal abnormalities. Impression: No acute abnormalities
[2018-07-17] MEDS ORDERED: Meperidine 50 mg/mL 1mL Syr ONE (08:54)
--- NOTE | 2018-07-17 08:57 | Consultation ---
DATE OF CONSULTATION: 07/14/2018 VASCULAR CONSULTATION REFERRING PHYSICIAN: Dr. Jackson. REASON FOR CONSULTATION: Gangrene, right toes. Thank you for referring this patient to me. HISTORY OF PRESENT ILLNESS: This is an 87-year-old male who was brought in from jail because of the right foot cellulitis. The patient unable to give any information on his own. Information reviewed from the chart. He is 87 years old with diabetes mellitus, hypertension, BPH, atrial fibrillation, coronary artery disease post-surgery, hypothyroidism, and dementia. LABORATORY STUDIES: Showed a WBC to be normal, hemoglobin is 9.7. The BUN is elevated to 48 and blood sugar on admission was 185. The patient underwent Doppler arterial study, which is severe peripheral vascular disease in both lower extremities, but worse on the right side. PHYSICAL EXAMINATION: Shows the patient is constantly moving about, unable to answer questions. There is a gangrenous change in the toes of the right foot with the extension of the edema and ischemia to the mid foot. There are areas of ulceration on scalp formations in the distal right leg. No pedal pulses or popliteal pulses are palpable on either side. and daughter is at bedside and informed consent was discussed regarding the unlikely possibility of doing a Syme's amputation and a right below knee amputation was recommended and agreed to by family. We will schedule the patient's surgery. JOB# [id number]
[2018-07-17] MEDS: Ferrous Sulfate 325 MG TAB PO SCH (09:13)
[2018-07-17] MEDS ORDERED: Meperidine 25 mg/mL 1mL Syr IVP PRN ×3 (09:13)
[2018-07-17] MEDS ORDERED: Dexamethasone Sodium Phos 4 mg/mL Vial IVP PRN (09:13)
[2018-07-17] MEDS ORDERED: Lactated Ringer 1,000 ML IV SCH (09:15)
--- NOTE | 2018-07-17 09:55 | Operative Report ---
DATE OF SURGERY: 07/17/2018 PREOP DIAGNOSES: 1. Gangrene, right toes. 2. Severe peripheral vascular disease. 3. Diabetes mellitus. 4. Hypertension. 5. Dementia. POSTOPERATIVE DIAGNOSES: 1. Gangrene, right toes. 2. Severe peripheral vascular disease. 3. Diabetes mellitus. 4. Hypertension. 5. Dementia. OPERATION DONE: Right below knee amputation. SURGEON: Dr. Lemons ANESTHESIA: General anesthesia. ANESTHESIOLOGIST: Dr. Miller ESTIMATED BLOOD LOSS: 100 mL. INDICATIONS FOR SURGERY: Gangrenous toes with severe peripheral vascular disease. Informed consent is discussed with the family regarding possible Syme's and/or below knee amputation. DESCRIPTION OF PROCEDURE: The patient was given general anesthesia. The right lower extremity was prepped with Betadine and draped in appropriate manner. Inspection of the ankle area showed extension of the ischemic skin. Because of this, it was decided to do a below-knee amputation. An incision was made on the proximal portion of the leg below the knee. The incision was carried through the fascia to the muscle layers. The tibia was stripped of its periosteum and transected 1 inch above the initial skin incision. The vessels were identified and clamped and ligated. The fibula was transected 1 cm above the tibial transection line. The posterior muscle layers were transected with sharp knife. Cautery was used for hemostasis and suture ligation with 0 silk. Following satisfactory hemostasis, the anterior portion of the tibia was transected to allow for smooth stump formation. Irrigation with saline solution was carried out. The incision was closed with interrupted sutures of 0 Vicryl for the fascia and the skin was closed with euallio. Compression dressing was placed over this. The patient tolerated the procedure well. JOB# [id number] TONIO
[2018-07-17] MEDS: Dabigatran Mesylate 75 mg Cap PO SCH ×3 (11:40→16:41)
[2018-07-17] MEDS: cefTRIAXone 2 GM in Sodium Chloride 0.9% 100 ML IV SCH (13:54)
[2018-07-17] MEDS: Atorvastatin Calcium 10 MG TAB PO SCH (20:44)
[2018-07-18] MEDS: INSULIN ASPART SLIDING SCALE 100 UNITS/ML UNIT SUBQ SCH ×4 (00:28→18:20)
[2018-07-18] MEDS: D5-0.9%NS 1,000 ML IV SCH ×2 (03:38→16:38)
[2018-07-18 05:43] LABS: % BASOPHILS 0.3 % (0.0-2.0); % EOSINOPHILS 3.6 % (0.0-5.0); % LYMPHOCYTES 13.9 % (20.0-50.0); % MONOCYTES 10.8 % (2.0-10.0); % NEUTROPHILS 71.4 % (40.0-80.0); EOSINOPHILE ABSOLUTE 0.2 Th/cmm (0.1-0.4); HEMATOCRIT 28.3 % (41.0-60); HEMOGLOBIN 9.6 gm/dL (12-16); LYMPHOCYTE ABSOLUTE 0.9 Th/cmm (1.5-3.0); MEAN CELL VOLUME 93.3 fl (80-99); MEAN CORPUSCULAR HEMOGLOBIN 31.6 pg (27.0-31.0); MEAN CORPUSCULAR HGB CONC 33.9 pg (28.0-36.0); MONOCYTE ABSOLUTE 0.7 Th/cmm (0.3-1.0); NEUTROPHILE ABSOLUTE 4.8 Th/cmm (1.8-8.0); PLATELET COUNT 301 Th/cmm (150-400); RED BLOOD COUNT 3.03 Mil/cmm (3.80-5.80); RED CELL DISTRIBUTION WIDTH 12.1 % (11.5-20.0); WHITE BLOOD COUNT 6.6 Th/cmm (4.8-10.8)
[2018-07-18 06:14] LABS: ALB/GLOB RATIO 0.6 (1.0-1.8); ALBUMIN 2.4 gm/dL (4.2-5.5); ALKALINE PHOSPHATASE 57 U/L (34-104); ANION GAP 9.8 (7.0-16.0); BILIRUBIN,TOTAL 0.3 mg/dL (0.3-1.0); BUN - UREA NITROGEN 18 mg/dL (7-25); CALCIUM SERUM 7.8 mg/dL (8.6-10.3); CARBON DIOXIDE 21.9 mEq/L (21.0-31.0); CHLORIDE 110 mEq/L (98-107); CREATININE - SERUM 1.1 mg/dL (0.7-1.3); GLUCOSE 223 mg/dL (70-105); MAGNESIUM 1.8 mg/dL (1.9-2.7); POTASSIUM SERUM 3.7 mEq/L (3.5-5.1); SGOT 21 U/L (13-39); SGPT/ALT 8 U/L (7-52); SODIUM SERUM 138 mEq/L (136-145); TOTAL PROTEIN,SERUM 6.3 gm/dL (6.0-8.3)
[2018-07-18] MEDS: LEVOTHYROXINE PO SCH (06:35)
[2018-07-18] MEDS ORDERED: Acetaminophen 500 MG TAB PO PRN (08:58)
--- NOTE | 2018-07-18 09:04 | General Progress Note ---
Subjective - Review of Systems Service Date: 07/18/18 Subjective: I am fine. Objective - Results Result Diagrams: 07/18/18 05:35 07/18/18 05:35 Recent Labs: Laboratory Last Values WBC 6.6 Th/cmm (4.8-10.8) 07/18/18 05:35 RBC 3.03 Mil/cmm (3.80-5.80) L 07/18/18 05:35 Hgb 9.6 gm/dL (12-16) L 07/18/18 05:35 Hct 28.3 % (41.0-60) L 07/18/18 05:35 MCV 93.3 fl (80-99) 07/18/18 05:35 MCH 31.6 pg (27.0-31.0) H 07/18/18 05:35 MCHC Differential 33.9 pg (28.0-36.0) 07/18/18 05:35 RDW 12.1 % (11.5-20.0) 07/18/18 05:35 Plt Count 301 Th/cmm (150-400) 07/18/18 05:35 MPV 7.0 fl 07/18/18 05:35 Neutrophils % 71.4 % (40.0-80.0) 07/18/18 05:35 Lymphocytes % 13.9 % (20.0-50.0) L 07/18/18 05:35 Monocytes % 10.8 % (2.0-10.0) H 07/18/18 05:35 Eosinophils % 3.6 % (0.0-5.0) 07/18/18 05:35 Basophils % 0.3 % (0.0-2.0) 07/18/18 05:35 ESR 135 mm/hr (0-20) H 07/14/18 12:25 PT 11.0 SECONDS (9.5-11.5) 07/17/18 05:50 INR 1.06 (0.5-1.4) 07/17/18 05:50 PTT (Actin FS) 27.2 SECONDS (26.0-38.0) 07/17/18 05:50 Sodium 138 mEq/L (136-145) 07/18/18 05:35 Potassium 3.7 mEq/L (3.5-5.1) 07/18/18 05:35 Chloride 110 mEq/L (98-107) H 07/18/18 05:35 Carbon Dioxide 21.9 mEq/L (21.0-31.0) 07/18/18 05:35 Anion Gap 9.8 (7.0-16.0) 07/18/18 05:35 BUN 18 mg/dL (7-25) 07/18/18 05:35 Creatinine 1.1 mg/dL (0.7-1.3) 07/18/18 05:35 Est GFR ( Amer) TNP 07/18/18 05:35 Est GFR (Non-Af Amer) TNP 07/18/18 05:35 BUN/Creatinine Ratio 16.4 07/18/18 05:35 Glucose 223 mg/dL (70-105) H 07/18/18 05:35 POC Glucose 197 MG/DL (70 - 105) H 07/18/18 05:52 Whole Bld Lactic Acid 1.15 mmol/L (0.60-1.99) 07/14/18 12:25 Calcium 7.8 mg/dL (8.6-10.3) L 07/18/18 05:35 Phosphorus 1.3 mg/dL (2.5-5.0) L 07/14/18 12:25 Magnesium 1.8 mg/dL (1.9-2.7) L 07/18/18 05:35 Total Bilirubin 0.3 mg/dL (0.3-1.0) 07/18/18 05:35 AST 21 U/L (13-39) 07/18/18 05:35 ALT 8 U/L (7-52) 07/18/18 05:35 Alkaline Phosphatase 57 U/L (34-104) 07/18/18 05:35 Total Protein 6.3 gm/dL (6.0-8.3) 07/18/18 05:35 Albumin 2.4 gm/dL (4.2-5.5) L 07/18/18 05:35 Globulin 3.9 gm/dL 07/18/18 05:35 Albumin/Globulin Ratio 0.6 (1.0-1.8) L 07/18/18 05:35 Triglycerides 102 mg/dL (<150) 07/17/18 05:50 Cholesterol 70 mg/dL (<200) 07/17/18 05:50 LDL Cholesterol Direct 35 mg/dL (75-193) L 07/17/18 05:50 HDL Cholesterol 19 mg/dL (23-92) L 07/17/18 05:50 TSH 2.74 uIU/ml (0.34-5.60) 07/16/18 04:20 Urine Source CLEAN C 07/14/18 13:50 Urine Color YELLOW 07/14/18 13:50 Urine Clarity CLEAR (CLEAR) 07/14/18 13:50 Urine pH 6.0 (4.6 - 8.0) 07/14/18 13:50 Ur Specific [place] 1.010 (1.005-1.030) 07/14/18 13:50 Urine Protein 30 mg/dL (NEGATIVE) H 07/14/18 13:50 Urine Glucose (UA) NEGATIVE mg/dL (NEGATIVE) 07/14/18 13:50 Urine Ketones NEGATIVE mg/dL (NEGATIVE) 07/14/18 13:50 Urine Blood NEGATIVE (NEGATIVE) 07/14/18 13:50 Urine Nitrate NEGATIVE (NEGATIVE) 07/14/18 13:50 Urine Bilirubin NEGATIVE (NEGATIVE) 07/14/18 13:50 Urine Urobilinogen 0.2 E.U./dL (0.2 - 1.0) 07/14/18 13:50 Ur Leukocyte Esterase NEGATIVE (NEGATIVE) 07/14/18 13:50 Urine RBC 0-2 /hpf (0-5) H 07/14/18 13:50 Urine WBC 0-2 /hpf (0-5) 07/14/18 13:50 Ur Epithelial Cells FEW /lpf (FEW) 07/14/18 13:50 Amorphous Sediment MODERATE URATES (NONE SEEN) 07/14/18 13:50 Urine Bacteria 1+ /hpf (NONE SEEN) H 07/14/18 13:50 Vancomycin Trough 12.1 ug/mL (5-10) H 07/16/18 04:20 - Physical Exam Vitals and I&O: Vital Signs Temp 99.0 F 07/18/18 04:00 Pulse 89 07/18/18 04:00 Resp 18 07/18/18 04:00 BP 117/67 07/18/18 04:00 Pulse Ox 96 07/18/18 04:00 Intake & Output 07/17/18 07/18/1818 18:59 06:59 18:59 Intake Total 1999 1038 Balance 1999 1038 Weight (lbs) 76.657 kg 76.657 kg Intake: Intake, IV Amount 1100 978 D5-0.9%Ns 1,000 ml @ 90 1000 978 mls/hr IV .Q11H7M [facility] Rx# :[id number] cefTRIAXone 2 gm In 100 Sodium Chloride 0.9% 100 ml @ 100 mls/hr IV Q24H [facility] Rx#:[id number] Oral 900 60 Other: # Voids 3 3 # Bowel Movements 0 Weight Source Bedscale Bedscale Active Medications: Current Medications Acetaminophen (Tylenol Extra Strength) 500 mg PO Q6H PRN PRN Reason: Pain or Fever >101 Stop: 09/16/18 08:57 Ascorbic Acid (Vitamin C) 500 mg PO DAILY [facility] Stop: 09/13/18 08:59 Last Admin: 07/17/18 09:13 Dose: Not Given Atorvastatin Calcium (Lipitor) 10 mg PO HS [facility] Stop: 09/12/18 20:59 Last Admin: 07/17/18 20:44 Dose: 10 mg Donepezil HCl (Aricept) 10 mg PO HS [facility] Stop: 09/12/18 20:59 Last Admin: 07/17/18 20:44 Dose: 10 mg Ferrous Sulfate (Iron) 325 mg PO DAILY [facility] Stop: 09/13/18 08:59 Last Admin: 07/17/18 09:13 Dose: Not Given Folic Acid (Folate) 1 mg PO DAILY [facility] Stop: 09/13/18 08:59 Last Admin: 07/17/18 09:14 Dose: Not Given Hydromorphone HCl (Dilaudid) 1 mg IVP Q6HR PRN PRN Reason: Pain (Severe) Stop: 09/16/18 08:55 Dextrose/Sodium Chloride (D5-0.9%Ns) 1,000 mls @ 90 mls/hr IV .Q11H7M [facility] Stop: 09/14/18 04:29 Last Admin: 07/18/18 03:38 Dose: 90 mls/hr Ceftriaxone Sodium 2 gm/ (Sodium Chloride) 100 mls @ 100 mls/hr IV Q24H [facility] Stop: 09/14/18 13:59 Last Infusion: 07/17/18 14:54 Dose: Infused Insulin Aspart (Novolog Insulin Sliding Scale) 0 units SUBQ Q6HR [facility]; Protocol Stop: 09/15/18 00:00 Last Admin: 07/18/18 06:20 Dose: Not Given Levothyroxine Sodium 0.1 mg/ (Levothyroxine Sodium 0.0375 mg) 0.1375 mg PO QDAC [facility] Stop: 09/13/18 07:29 Last Admin: 07/18/18 06:35 Dose: 0.1375 mg Lorazepam (Ativan) 1 mg PO Q8HR PRN; Protocol PRN Reason: Agitation Stop: 09/13/18 10:27 Last Admin: 07/16/18 13:25 Dose: 1 mg Megestrol Acetate (Megace) 40 mg PO BID [facility]; Protocol Stop: 09/12/18 16:59 Last Admin: 07/17/18 16:40 Dose: 40 mg Tamsulosin HCl (Flomax) 0.4 mg PO QPM [facility] Stop: 09/12/18 16:59 Last Admin: 07/17/18 16:39 Dose: 0.4 mg General: Cooperative, Other (Slepping but arousable) HEENT: Atraumatic Neck: Supple Cardiovascular: Regular rate Lungs: Clear to auscultation Abdomen: Bowel sounds Extremities: Other (Amputation of BK of right leg) Neurological: Other (non ambulatory) Skin: Other (Warm and dry) Psych/Mental Status: Other (Confused) - Procedures Procedures: Procedures Procedure Code Date DETACHMENT AT RIGHT LOWER LEG, HIGH, OPEN APPROACH [id number] 07/14/18 OTHER GROUP THERAPY 94.44 04/17/13 Assessment/Plan - Problem List Patient Problems: All Active Problems FESTERING WOUND TO RIGHT #1/2 TOES (Acute) - Assessment Assessment: Current Active Problems Problem Status Onset FESTERING WOUND TO RIGHT #1/2 TOES Acute Patient is awake, alert, calm, in no acute distress. Dx: Cellulitis of left foot, S/P BK right leg, DM, HTN, A-fib, CAD, PVD, Hypothyroidism, Dementia. - Plan Plan: Patient is in IV NS, IV Vanco and cefepine, Pain control, Continue with SNF meds. BK Amputation was done. Follow by Surgery and ID. Will continue to monitor. Nutritional Asmnt/Malnutr-PDOC - Dietary Evaluation Malnutrition Findings (Please click <Entered> for more info): Nutritional Asmnt/Malnutrition Start: 07/15/18 14: 55 Text: Status: Complete Freq: Protocol: Document 07/15/18 14:57 WILLIAM (Rec: 07/15/18 15:33 WILLIAM [email or web address]) Nutritional Asmnt/Malnutrition Patient General Information Nutritional Screening High Risk Diagnosis cellulitis Pertinent Medical Hx/Surgical Hx AFIB, CAD, CHF, HTN, dementia, schizophrenia, DM, hypothyroidism, cellulitis, benign prostatic enlarge Subjective Information Pt receiving an ultrasound by nursing staff at time of visit ; RD unable to speak w/ pt. Per EMR, pt finished 50% of dinner on day of admit. Current Diet Order/ Nutrition Support [facility] soft ground, CCHO, nectar thick liquids, fortified w/ 8 oz HPN TID Pertinent Medications Vit C, lipitor, iron, folate, novolog, levemir, megace, glucophage, vancomycin, Nacl 0 .9%, Pertinent Labs 07/15: BUN 48, Cr 1.4, glucose 75, POC 110-121, Alb 2.7 07/14: BUN 51, Cr 1.6, glucose 185, POC 83-203, Alb 3.0, Phos 1.3 Nutritional Hx/Data Height 1.78 m Height (Calculated Centimeters) 177.8 Current Weight (lbs) 71.395 kg Weight (Calculated Kilograms) 71.4 Weight (Calculated Grams) 69631.4 [place] Body Weight 166 lb Body Mass Index (BMI) 22.6 Weight Status Approriate GI Symptoms GI Symptoms None Last BM none noted Difficult in: None Food Allergies No Skin Integrity/Comment: reddened and bruise right big toe, reddened pressure area to right knee, lacerations to rt /lt legs, edema on right foot Estimated Nutritional Goals BEE in Kcals: Using Current wt Calories/Kcals/Kg 25-30 Kcals Calculated 6093-9041 Protein: Using Current wt Protein g/k-1.2 Protein Calculated 72-86g Fluid: ml 5586-7820 (1 ml/kcal) Nutritional Problem 1. Problem Problem Altered nutrition related lab values Etiology hx of DM and dehydration/renal insufficiency per ED note Signs/Symptoms: BUN 48, Cr 1.4, POC 110-121 Malnutrition Alert Is there a minimum of two criteria No selected? Query Text:Check all the applicable criteria. A minimum of two criteria are recommended for diagnosis of either severe or non-severe malnutrition. Malnutrition Related to Morbid Obesity Malnutrition related to morbid obesity No Intervention/Recommendation Comments 1. Continue with [facility] soft ground, CCHO, nectar thick liquid diet as ordered. Supplement w/ glucerna shake TID as ordered 2. MD to monitor insulin regimen for optimal glycemic control and monitor hydration status 3. Monitor PO intake, wt, labs and skin integrity 4. F/U as moderate risk in 3-5 days, 07/18-07/20 Expected Outcomes/Goals Expected Outcomes/Goals 1. PO intake to meet at least 75% of nutritional needs 2. Wt stability, skin integrity to improve, and nutrition related labs to approach normal limits Reviewed by Beatrice Smith RD
[2018-07-18] MEDS: Ferrous Sulfate 325 MG TAB PO SCH (09:25)
[2018-07-18] MEDS: Dabigatran Mesylate 75 mg Cap PO SCH ×2 (09:25→16:38)
--- NOTE | 2018-07-18 11:45 | General Progress Note ---
Subjective - Review of Systems Service Date: 07/18/18 Events since last encounter: labs noted dressing dry will change dressings tomorrow Objective - Results Result Diagrams: 07/18/18 05:35 07/18/18 05:35 Recent Labs: Laboratory Last Values WBC 6.6 Th/cmm (4.8-10.8) 07/18/18 05:35 RBC 3.03 Mil/cmm (3.80-5.80) L 07/18/18 05:35 Hgb 9.6 gm/dL (12-16) L 07/18/18 05:35 Hct 28.3 % (41.0-60) L 07/18/18 05:35 MCV 93.3 fl (80-99) 07/18/18 05:35 MCH 31.6 pg (27.0-31.0) H 07/18/18 05:35 MCHC Differential 33.9 pg (28.0-36.0) 07/18/18 05:35 RDW 12.1 % (11.5-20.0) 07/18/18 05:35 Plt Count 301 Th/cmm (150-400) 07/18/18 05:35 MPV 7.0 fl 07/18/18 05:35 Neutrophils % 71.4 % (40.0-80.0) 07/18/18 05:35 Lymphocytes % 13.9 % (20.0-50.0) L 07/18/18 05:35 Monocytes % 10.8 % (2.0-10.0) H 07/18/18 05:35 Eosinophils % 3.6 % (0.0-5.0) 07/18/18 05:35 Basophils % 0.3 % (0.0-2.0) 07/18/18 05:35 ESR 135 mm/hr (0-20) H 07/14/18 12:25 PT 11.0 SECONDS (9.5-11.5) 07/17/18 05:50 INR 1.06 (0.5-1.4) 07/17/18 05:50 PTT (Actin FS) 27.2 SECONDS (26.0-38.0) 07/17/18 05:50 Sodium 138 mEq/L (136-145) 07/18/18 05:35 Potassium 3.7 mEq/L (3.5-5.1) 07/18/18 05:35 Chloride 110 mEq/L (98-107) H 07/18/18 05:35 Carbon Dioxide 21.9 mEq/L (21.0-31.0) 07/18/18 05:35 Anion Gap 9.8 (7.0-16.0) 07/18/18 05:35 BUN 18 mg/dL (7-25) 07/18/18 05:35 Creatinine 1.1 mg/dL (0.7-1.3) 07/18/18 05:35 Est GFR ( Amer) TNP 07/18/18 05:35 Est GFR (Non-Af Amer) TNP 07/18/18 05:35 BUN/Creatinine Ratio 16.4 07/18/18 05:35 Glucose 223 mg/dL (70-105) H 07/18/18 05:35 POC Glucose 197 MG/DL (70 - 105) H 07/18/18 05:52 Whole Bld Lactic Acid 1.15 mmol/L (0.60-1.99) 07/14/18 12:25 Calcium 7.8 mg/dL (8.6-10.3) L 07/18/18 05:35 Phosphorus 1.3 mg/dL (2.5-5.0) L 07/14/18 12:25 Magnesium 1.8 mg/dL (1.9-2.7) L 07/18/18 05:35 Total Bilirubin 0.3 mg/dL (0.3-1.0) 07/18/18 05:35 AST 21 U/L (13-39) 07/18/18 05:35 ALT 8 U/L (7-52) 07/18/18 05:35 Alkaline Phosphatase 57 U/L (34-104) 07/18/18 05:35 Total Protein 6.3 gm/dL (6.0-8.3) 07/18/18 05:35 Albumin 2.4 gm/dL (4.2-5.5) L 07/18/18 05:35 Globulin 3.9 gm/dL 07/18/18 05:35 Albumin/Globulin Ratio 0.6 (1.0-1.8) L 07/18/18 05:35 Triglycerides 102 mg/dL (<150) 07/17/18 05:50 Cholesterol 70 mg/dL (<200) 07/17/18 05:50 LDL Cholesterol Direct 35 mg/dL (75-193) L 07/17/18 05:50 HDL Cholesterol 19 mg/dL (23-92) L 07/17/18 05:50 TSH 2.74 uIU/ml (0.34-5.60) 07/16/18 04:20 Urine Source CLEAN C 07/14/18 13:50 Urine Color YELLOW 07/14/18 13:50 Urine Clarity CLEAR (CLEAR) 07/14/18 13:50 Urine pH 6.0 (4.6 - 8.0) 07/14/18 13:50 Ur Specific [place] 1.010 (1.005-1.030) 07/14/18 13:50 Urine Protein 30 mg/dL (NEGATIVE) H 07/14/18 13:50 Urine Glucose (UA) NEGATIVE mg/dL (NEGATIVE) 07/14/18 13:50 Urine Ketones NEGATIVE mg/dL (NEGATIVE) 07/14/18 13:50 Urine Blood NEGATIVE (NEGATIVE) 07/14/18 13:50 Urine Nitrate NEGATIVE (NEGATIVE) 07/14/18 13:50 Urine Bilirubin NEGATIVE (NEGATIVE) 07/14/18 13:50 Urine Urobilinogen 0.2 E.U./dL (0.2 - 1.0) 07/14/18 13:50 Ur Leukocyte Esterase NEGATIVE (NEGATIVE) 07/14/18 13:50 Urine RBC 0-2 /hpf (0-5) H 07/14/18 13:50 Urine WBC 0-2 /hpf (0-5) 07/14/18 13:50 Ur Epithelial Cells FEW /lpf (FEW) 07/14/18 13:50 Amorphous Sediment MODERATE URATES (NONE SEEN) 07/14/18 13:50 Urine Bacteria 1+ /hpf (NONE SEEN) H 07/14/18 13:50 Vancomycin Trough 12.1 ug/mL (5-10) H 07/16/18 04:20 - Physical Exam Vitals and I&O: Vital Signs Temp 99.0 F 07/18/18 04:00 Pulse 89 07/18/18 04:00 Resp 18 07/18/18 04:00 BP 117/67 07/18/18 04:00 Pulse Ox 96 07/18/18 04:00 Intake & Output 07/17/18 07/18/18 07/18/18 18:59 06:59 18:59 Intake Total 1999 1038 Balance 1999 1038 Weight (lbs) 76.657 kg 76.657 kg Intake: Intake, IV Amount 1100 978 D5-0.9%Ns 1,000 ml @ 90 1000 978 mls/hr IV .Q11H7M [facility] Rx# :[id number] cefTRIAXone 2 gm In 100 Sodium Chloride 0.9% 100 ml @ 100 mls/hr IV Q24H [facility] Rx#:[id number] Oral 900 60 Other: # Voids 3 3 # Bowel Movements 0 Weight Source Bedscale Bedscale Active Medications: Current Medications Acetaminophen (Tylenol Extra Strength) 500 mg PO Q6H PRN PRN Reason: Pain or Fever >101 Stop: 09/16/18 08:57 Ascorbic Acid (Vitamin C) 500 mg PO DAILY [facility] Stop: 09/13/18 08:59 Last Admin: 07/18/18 09:25 Dose: 500 mg Atorvastatin Calcium (Lipitor) 10 mg PO HS [facility] Stop: 09/12/18 20:59 Last Admin: 07/17/18 20:44 Dose: 10 mg Donepezil HCl (Aricept) 10 mg PO HS [facility] Stop: 09/12/18 20:59 Last Admin: 07/17/18 20:44 Dose: 10 mg Ferrous Sulfate (Iron) 325 mg PO DAILY [facility] Stop: 09/13/18 08:59 Last Admin: 07/18/18 09:25 Dose: 325 mg Folic Acid (Folate) 1 mg PO DAILY [facility] Stop: 09/13/18 08:59 Last Admin: 07/18/18 09:25 Dose: 1 mg Hydromorphone HCl (Dilaudid) 1 mg IVP Q6HR PRN PRN Reason: Pain (Severe) Stop: 09/16/18 08:55 Dextrose/Sodium Chloride (D5-0.9%Ns) 1,000 mls @ 90 mls/hr IV .Q11H7M [facility] Stop: 09/14/18 04:29 Last Admin: 07/18/18 03:38 Dose: 90 mls/hr Ceftriaxone Sodium 2 gm/ (Sodium Chloride) 100 mls @ 100 mls/hr IV Q24H [facility] Stop: 09/14/18 13:59 Last Infusion: 07/17/18 14:54 Dose: Infused Insulin Aspart (Novolog Insulin Sliding Scale) 0 units SUBQ Q6HR [facility]; Protocol Stop: 09/15/18 00:00 Last Admin: 07/18/18 06:20 Dose: Not Given Levothyroxine Sodium 0.1 mg/ (Levothyroxine Sodium 0.0375 mg) 0.1375 mg PO QDAC [facility] Stop: 09/13/18 07:29 Last Admin: 07/18/18 06:35 Dose: 0.1375 mg Lorazepam (Ativan) 1 mg PO Q8HR PRN; Protocol PRN Reason: Agitation Stop: 09/13/18 10:27 Last Admin: 07/16/18 13:25 Dose: 1 mg Megestrol Acetate (Megace) 40 mg PO BID [facility]; Protocol Stop: 09/12/18 16:59 Last Admin: 07/18/18 09:25 Dose: 40 mg Tamsulosin HCl (Flomax) 0.4 mg PO QPM [facility] Stop: 09/12/18 16:59 Last Admin: 07/17/18 16:39 Dose: 0.4 mg General: Cooperative, Other (Slepping but arousable) HEENT: Atraumatic Neck: Supple Cardiovascular: Regular rate Lungs: Clear to auscultation Abdomen: Bowel sounds Extremities: Other (Amputation of BK of right leg) Neurological: Other (non ambulatory) Skin: Other (Warm and dry) Psych/Mental Status: Other (Confused) - Procedures Procedures: Procedures Procedure Code Date DETACHMENT AT RIGHT LOWER LEG, HIGH, OPEN APPROACH [id number] 07/14/18 OTHER GROUP THERAPY 94.44 04/17/13 Assessment/Plan - Problem List Patient Problems: All Active Problems FESTERING WOUND TO RIGHT #1/2 TOES (Acute) Nutritional Asmnt/Malnutr-PDOC - Dietary Evaluation Malnutrition Findings (Please click <Entered> for more info): Nutritional Asmnt/Malnutrition Start: 07/15/18 14: 55 Text: Status: Complete Freq: Protocol: Document 07/15/18 14:57 WILLIAM (Rec: 07/15/18 15:33 WILLIAM [email or web address]) Nutritional Asmnt/Malnutrition Patient General Information Nutritional Screening High Risk Diagnosis cellulitis Pertinent Medical Hx/Surgical Hx AFIB, CAD, CHF, HTN, dementia, schizophrenia, DM, hypothyroidism, cellulitis, benign prostatic enlarge Subjective Information Pt receiving an ultrasound by nursing staff at time of visit ; RD unable to speak w/ pt. Per EMR, pt finished 50% of dinner on day of admit. Current Diet Order/ Nutrition Support [facility] soft ground, CCHO, nectar thick liquids, fortified w/ 8 oz HPN TID Pertinent Medications Vit C, lipitor, iron, folate, novolog, levemir, megace, glucophage, vancomycin, Nacl 0 .9%, Pertinent Labs 07/15: BUN 48, Cr 1.4, glucose 75, POC 110-121, Alb 2.7 07/14: BUN 51, Cr 1.6, glucose 185, POC 83-203, Alb 3.0, Phos 1.3 Nutritional Hx/Data Height 1.78 m Height (Calculated Centimeters) 177.8 Current Weight (lbs) 71.395 kg Weight (Calculated Kilograms) 71.4 Weight (Calculated Grams) 66737.4 [place] Body Weight 166 lb Body Mass Index (BMI) 22.6 Weight Status Approriate GI Symptoms GI Symptoms None Last BM none noted Difficult in: None Food Allergies No Skin Integrity/Comment: reddened and bruise right big toe, reddened pressure area to right knee, lacerations to rt /lt legs, edema on right foot Estimated Nutritional Goals BEE in Kcals: Using Current wt Calories/Kcals/Kg 25-30 Kcals Calculated 3587-3923 Protein: Using Current wt Protein g/k-1.2 Protein Calculated 72-86g Fluid: ml 0442-4422 (1 ml/kcal) Nutritional Problem 1. Problem Problem Altered nutrition related lab values Etiology hx of DM and dehydration/renal insufficiency per ED note Signs/Symptoms: BUN 48, Cr 1.4, POC 110-121 Malnutrition Alert Is there a minimum of two criteria No selected? Query Text:Check all the applicable criteria. A minimum of two criteria are recommended for diagnosis of either severe or non-severe malnutrition. Malnutrition Related to Morbid Obesity Malnutrition related to morbid obesity No Intervention/Recommendation Comments 1. Continue with [facility] soft ground, CCHO, nectar thick liquid diet as ordered. Supplement w/ glucerna shake TID as ordered 2. MD to monitor insulin regimen for optimal glycemic control and monitor hydration status 3. Monitor PO intake, wt, labs and skin integrity 4. F/U as moderate risk in 3-5 days, 07/18-07/20 Expected Outcomes/Goals Expected Outcomes/Goals 1. PO intake to meet at least 75% of nutritional needs 2. Wt stability, skin integrity to improve, and nutrition related labs to approach normal limits Reviewed by Beatrice Smith RD
[2018-07-18] MEDS: HYDROmorphone 1 mg/mL 1mL Syr IVP PRN ×2 (12:43→18:18)
[2018-07-18] MEDS: cefTRIAXone 2 GM in Sodium Chloride 0.9% 100 ML IV SCH (14:11)
--- NOTE | 2018-07-18 14:38 | Infectious Disease Prog Note ---
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 Otherwise, there is no fever. Subjective: There is no new change, no fever, Infectious Disease Objective - Results Result Diagrams: 07/18/18 05:35 07/18/18 05:35 Recent Labs: Laboratory Last Values WBC 6.6 Th/cmm (4.8-10.8) 07/18/18 05:35 RBC 3.03 Mil/cmm (3.80-5.80) L 07/18/18 05:35 Hgb 9.6 gm/dL (12-16) L 07/18/18 05:35 Hct 28.3 % (41.0-60) L 07/18/18 05:35 MCV 93.3 fl (80-99) 07/18/18 05:35 MCH 31.6 pg (27.0-31.0) H 07/18/18 05:35 MCHC Differential 33.9 pg (28.0-36.0) 07/18/18 05:35 RDW 12.1 % (11.5-20.0) 07/18/18 05:35 Plt Count 301 Th/cmm (150-400) 07/18/18 05:35 MPV 7.0 fl 07/18/18 05:35 Neutrophils % 71.4 % (40.0-80.0) 07/18/18 05:35 Lymphocytes % 13.9 % (20.0-50.0) L 07/18/18 05:35 Monocytes % 10.8 % (2.0-10.0) H 07/18/18 05:35 Eosinophils % 3.6 % (0.0-5.0) 07/18/18 05:35 Basophils % 0.3 % (0.0-2.0) 07/18/18 05:35 ESR 135 mm/hr (0-20) H 07/14/18 12:25 PT 11.0 SECONDS (9.5-11.5) 07/17/18 05:50 INR 1.06 (0.5-1.4) 07/17/18 05:50 PTT (Actin FS) 27.2 SECONDS (26.0-38.0) 07/17/18 05:50 Sodium 138 mEq/L (136-145) 07/18/18 05:35 Potassium 3.7 mEq/L (3.5-5.1) 07/18/18 05:35 Chloride 110 mEq/L (98-107) H 07/18/18 05:35 Carbon Dioxide 21.9 mEq/L (21.0-31.0) 07/18/18 05:35 Anion Gap 9.8 (7.0-16.0) 07/18/18 05:35 BUN 18 mg/dL (7-25) 07/18/18 05:35 Creatinine 1.1 mg/dL (0.7-1.3) 07/18/18 05:35 Est GFR ( Amer) TNP 07/18/18 05:35 Est GFR (Non-Af Amer) TNP 07/18/18 05:35 BUN/Creatinine Ratio 16.4 07/18/18 05:35 Glucose 223 mg/dL (70-105) H 07/18/18 05:35 POC Glucose 238 MG/DL (70 - 105) H 07/18/18 11:43 Whole Bld Lactic Acid 1.15 mmol/L (0.60-1.99) 07/14/18 12:25 Calcium 7.8 mg/dL (8.6-10.3) L 07/18/18 05:35 Phosphorus 1.3 mg/dL (2.5-5.0) L 07/14/18 12:25 Magnesium 1.8 mg/dL (1.9-2.7) L 07/18/18 05:35 Total Bilirubin 0.3 mg/dL (0.3-1.0) 07/18/18 05:35 AST 21 U/L (13-39) 07/18/18 05:35 ALT 8 U/L (7-52) 07/18/18 05:35 Alkaline Phosphatase 57 U/L (34-104) 07/18/18 05:35 Total Protein 6.3 gm/dL (6.0-8.3) 07/18/18 05:35 Albumin 2.4 gm/dL (4.2-5.5) L 07/18/18 05:35 Globulin 3.9 gm/dL 07/18/18 05:35 Albumin/Globulin Ratio 0.6 (1.0-1.8) L 07/18/18 05:35 Triglycerides 102 mg/dL (<150) 07/17/18 05:50 Cholesterol 70 mg/dL (<200) 07/17/18 05:50 LDL Cholesterol Direct 35 mg/dL (75-193) L 07/17/18 05:50 HDL Cholesterol 19 mg/dL (23-92) L 07/17/18 05:50 TSH 2.74 uIU/ml (0.34-5.60) 07/16/18 04:20 Urine Source CLEAN C 07/14/18 13:50 Urine Color YELLOW 07/14/18 13:50 Urine Clarity CLEAR (CLEAR) 07/14/18 13:50 Urine pH 6.0 (4.6 - 8.0) 07/14/18 13:50 Ur Specific [place] 1.010 (1.005-1.030) 07/14/18 13:50 Urine Protein 30 mg/dL (NEGATIVE) H 07/14/18 13:50 Urine Glucose (UA) NEGATIVE mg/dL (NEGATIVE) 07/14/18 13:50 Urine Ketones NEGATIVE mg/dL (NEGATIVE) 07/14/18 13:50 Urine Blood NEGATIVE (NEGATIVE) 07/14/18 13:50 Urine Nitrate NEGATIVE (NEGATIVE) 07/14/18 13:50 Urine Bilirubin NEGATIVE (NEGATIVE) 07/14/18 13:50 Urine Urobilinogen 0.2 E.U./dL (0.2 - 1.0) 07/14/18 13:50 Ur Leukocyte Esterase NEGATIVE (NEGATIVE) 07/14/18 13:50 Urine RBC 0-2 /hpf (0-5) H 07/14/18 13:50 Urine WBC 0-2 /hpf (0-5) 07/14/18 13:50 Ur Epithelial Cells FEW /lpf (FEW) 07/14/18 13:50 Amorphous Sediment MODERATE URATES (NONE SEEN) 07/14/18 13:50 Urine Bacteria 1+ /hpf (NONE SEEN) H 07/14/18 13:50 Vancomycin Trough 12.1 ug/mL (5-10) H 07/16/18 04:20 - Physical Exam Vitals and I&O: Vital Signs Temp 99.6 F 07/18/18 12:00 Pulse 89 07/18/18 12:00 Resp 18 07/18/18 12:00 BP 148/62 07/18/18 12:00 Pulse Ox 99 07/18/18 12:00 Intake & Output 07/17/18 07/18/18 07/18/18 18:59 06:59 18:59 Intake Total 1999 1038 Balance 1999 1038 Weight (lbs) 76.657 kg 76.657 kg Intake: Intake, IV Amount 1100 978 D5-0.9%Ns 1,000 ml @ 90 1000 978 mls/hr IV .Q11H7M [facility] Rx# :[id number] cefTRIAXone 2 gm In 100 Sodium Chloride 0.9% 100 ml @ 100 mls/hr IV Q24H [facility] Rx#:[id number] Oral 900 60 Other: # Voids 3 3 # Bowel Movements 0 Weight Source Bedscale Bedscale Active Medications: Current Medications Acetaminophen (Tylenol Extra Strength) 500 mg PO Q6H PRN PRN Reason: Pain or Fever >101 Stop: 09/16/18 08:57 Ascorbic Acid (Vitamin C) 500 mg PO DAILY [facility] Stop: 09/13/18 08:59 Last Admin: 07/18/18 09:25 Dose: 500 mg Atorvastatin Calcium (Lipitor) 10 mg PO HS [facility] Stop: 09/12/18 20:59 Last Admin: 07/17/18 20:44 Dose: 10 mg Donepezil HCl (Aricept) 10 mg PO HS [facility] Stop: 09/12/18 20:59 Last Admin: 07/17/18 20:44 Dose: 10 mg Ferrous Sulfate (Iron) 325 mg PO DAILY [facility] Stop: 09/13/18 08:59 Last Admin: 07/18/18 09:25 Dose: 325 mg Folic Acid (Folate) 1 mg PO DAILY [facility] Stop: 09/13/18 08:59 Last Admin: 07/18/18 09:25 Dose: 1 mg Hydromorphone HCl (Dilaudid) 1 mg IVP Q6HR PRN PRN Reason: Pain (Severe) Stop: 09/16/18 08:55 Last Admin: 07/18/18 12:43 Dose: 1 mg Dextrose/Sodium Chloride (D5-0.9%Ns) 1,000 mls @ 90 mls/hr IV .Q11H7M [facility] Stop: 09/14/18 04:29 Last Admin: 07/18/18 03:38 Dose: 90 mls/hr Ceftriaxone Sodium 2 gm/ (Sodium Chloride) 100 mls @ 100 mls/hr IV Q24H [facility] Stop: 09/14/18 13:59 Last Admin: 07/18/18 14:11 Dose: 100 mls/hr Insulin Aspart (Novolog Insulin Sliding Scale) 0 units SUBQ Q6HR [facility]; Protocol Stop: 09/15/18 00:00 Last Admin: 07/18/18 12:28 Dose: 4 units Levothyroxine Sodium 0.1 mg/ (Levothyroxine Sodium 0.0375 mg) 0.1375 mg PO QDAC [facility] Stop: 09/13/18 07:29 Last Admin: 07/18/18 06:35 Dose: 0.1375 mg Lorazepam (Ativan) 1 mg PO Q8HR PRN; Protocol PRN Reason: Agitation Stop: 09/13/18 10:27 Last Admin: 07/16/18 13:25 Dose: 1 mg Megestrol Acetate (Megace) 40 mg PO BID [facility]; Protocol Stop: 09/12/18 16:59 Last Admin: 07/18/18 09:25 Dose: 40 mg Tamsulosin HCl (Flomax) 0.4 mg PO QPM [facility] Stop: 09/12/18 16:59 Last Admin: 07/17/18 16:39 Dose: 0.4 mg General: no acute distress, well developed, well nourished HEENT: atraumatic, normocephalic, PERRLA, EOMI, moist mucous membrane Neck: supple, no thyromegaly Cardiovascular: S1S2, regular Lungs: clear to auscultation bilaterally, clear to percussion Abdomen: soft, no tender, no distended Extremities: other (R BKA,.), no cyanosis, no clubbing, no edema Neurological: awake, alert, oriented Skin: intact - Procedures Procedures: Procedures Procedure Code Date DETACHMENT AT RIGHT LOWER LEG, HIGH, OPEN APPROACH [id number] 07/14/18 OTHER GROUP THERAPY 94.44 04/17/13 Infectious Disease Assmt/Plan - Problem List Patient Problems: All Active Problems FESTERING WOUND TO RIGHT #1/2 TOES (Acute) - Assessment Assessment: 1. Cellulitis of the right big toe and foot. Rule out osteomylitis. PERRLA peripheral artery disease. 2. Dementia. 3. Diabetes mellitus type 2. 4. Hypertension. 5. Carotid disease. 6. Atrial fibrillation. 7. Hypothyroidism. 8. BPH. 9. PAD. - Plan Plan: Will change antibitoics to Keflex po 250 mg po tid for 5 days. Wound care. Dc plan. Nutritional Asmnt/Malnutr-PDOC - Dietary Evaluation Malnutrition Findings (Please click <Entered> for more info): Nutritional Asmnt/Malnutrition Start: 07/15/18 14: 55 Text: Status: Complete Freq: Protocol: Document 07/15/18 14:57 KRISTOPHERPILAR (Rec: 07/15/18 15:33 WILLIAM [email or web address]) Nutritional Asmnt/Malnutrition Patient General Information Nutritional Screening High Risk Diagnosis cellulitis Pertinent Medical Hx/Surgical Hx AFIB, CAD, CHF, HTN, dementia, schizophrenia, DM, hypothyroidism, cellulitis, benign prostatic enlarge Subjective Information Pt receiving an ultrasound by nursing staff at time of visit ; RD unable to speak w/ pt. Per EMR, pt finished 50% of dinner on day of admit. Current Diet Order/ Nutrition Support [facility] [place] soft ground, CCHO, nectar thick liquids, fortified w/ 8 oz HPN TID Pertinent Medications Vit C, lipitor, iron, folate, novolog, levemir, megace, glucophage, vancomycin, Nacl 0 .9%, Pertinent Labs 07/15: BUN 48, Cr 1.4, glucose 75, POC 110-121, Alb 2.7 07/14: BUN 51, Cr 1.6, glucose 185, POC 83-203, Alb 3.0, Phos 1.3 Nutritional Hx/Data Height 1.78 m Height (Calculated Centimeters) 177.8 Current Weight (lbs) 71.395 kg Weight (Calculated Kilograms) 71.4 Weight (Calculated Grams) 16339.4 [place] Body Weight 166 lb Body Mass Index (BMI) 22.6 Weight Status Approriate GI Symptoms GI Symptoms None Last BM none noted Difficult in: None Food Allergies No Skin Integrity/Comment: reddened and bruise right big toe, reddened pressure area to right knee, lacerations to rt /lt legs, edema on right foot Estimated Nutritional Goals BEE in Kcals: Using Current wt Calories/Kcals/Kg 25-30 Kcals Calculated 4528-3407 Protein: Using Current wt Protein g/k-1.2 Protein Calculated 72-86g Fluid: ml 5850-4658 (1 ml/kcal) Nutritional Problem 1. Problem Problem Altered nutrition related lab values Etiology hx of DM and dehydration/renal insufficiency per ED note Signs/Symptoms: BUN 48, Cr 1.4, POC 110-121 Malnutrition Alert Is there a minimum of two criteria No selected? Query Text:Check all the applicable criteria. A minimum of two criteria are recommended for diagnosis of either severe or non-severe malnutrition. Malnutrition Related to Morbid Obesity Malnutrition related to morbid obesity No Intervention/Recommendation Comments 1. Continue with [facility] soft ground, CCHO, nectar thick liquid diet as ordered. Supplement w/ glucerna shake TID as ordered 2. MD to monitor insulin regimen for optimal glycemic control and monitor hydration status 3. Monitor PO intake, wt, labs and skin integrity 4. F/U as moderate risk in 3-5 days, 07/18-07/20 Expected Outcomes/Goals Expected Outcomes/Goals 1. PO intake to meet at least 75% of nutritional needs 2. Wt stability, skin integrity to improve, and nutrition related labs to approach normal limits Reviewed by Beatrice Smith RD
[2018-07-18] MEDS: Atorvastatin Calcium 10 MG TAB PO SCH (20:32)
--- NOTE | 2018-07-18 21:36 | Progress Notes ---
DATE: 07/18/2018 PSYCHIATRIC PROGRESS NOTE SUBJECTIVE: Staff was spoken to. The patient is interviewed. Mood is noted to be dysphoric. Coping skills are noted to be poor. Sleep is noted to be improving. Appetite is noted to be poor. The patient is getting frustrated. The patient has poor short-term as well as long-term memory. The patient, however, is willing to comply with the treatment. ASSESSMENT: The patient is depressed today. PLAN: To continue the patient with supportive therapy. I encouraged the patient to verbalize the concerns rather than to act out. JOB# [id number]
[2018-07-19] MEDS: INSULIN ASPART SLIDING SCALE 100 UNITS/ML UNIT SUBQ SCH ×3 (00:12→12:11)
[2018-07-19] MEDS: HYDROmorphone 1 mg/mL 1mL Syr IVP PRN ×2 (02:00→17:09)
[2018-07-19] MEDS: D5-0.9%NS 1,000 ML IV SCH (02:51)
[2018-07-19] MEDS: LEVOTHYROXINE PO SCH (06:35)
[2018-07-19 08:24] LABS: ANION GAP 8.6 (7.0-16.0); BUN - UREA NITROGEN 14 mg/dL (7-25); CALCIUM SERUM 7.7 mg/dL (8.6-10.3); CARBON DIOXIDE 23.1 mEq/L (21.0-31.0); CHLORIDE 111 mEq/L (98-107); CREATININE - SERUM 1.2 mg/dL (0.7-1.3); GLUCOSE 166 mg/dL (70-105); POTASSIUM SERUM 3.7 mEq/L (3.5-5.1); SODIUM SERUM 139 mEq/L (136-145)
--- NOTE | 2018-07-19 09:04 | General Progress Note ---
Subjective - Review of Systems Service Date: 07/19/18 Subjective: I am fine. Objective - Results Result Diagrams: 07/18/18 05:35 07/19/18 08:00 Recent Labs: Laboratory Last Values WBC 6.6 Th/cmm (4.8-10.8) 07/18/18 05:35 RBC 3.03 Mil/cmm (3.80-5.80) L 07/18/18 05:35 Hgb 9.6 gm/dL (12-16) L 07/18/18 05:35 Hct 28.3 % (41.0-60) L 07/18/18 05:35 MCV 93.3 fl (80-99) 07/18/18 05:35 MCH 31.6 pg (27.0-31.0) H 07/18/18 05:35 MCHC Differential 33.9 pg (28.0-36.0) 07/18/18 05:35 RDW 12.1 % (11.5-20.0) 07/18/18 05:35 Plt Count 301 Th/cmm (150-400) 07/18/18 05:35 MPV 7.0 fl 07/18/18 05:35 Neutrophils % 71.4 % (40.0-80.0) 07/18/18 05:35 Lymphocytes % 13.9 % (20.0-50.0) L 07/18/18 05:35 Monocytes % 10.8 % (2.0-10.0) H 07/18/18 05:35 Eosinophils % 3.6 % (0.0-5.0) 07/18/18 05:35 Basophils % 0.3 % (0.0-2.0) 07/18/18 05:35 ESR 135 mm/hr (0-20) H 07/14/18 12:25 PT 11.0 SECONDS (9.5-11.5) 07/17/18 05:50 INR 1.06 (0.5-1.4) 07/17/18 05:50 PTT (Actin FS) 27.2 SECONDS (26.0-38.0) 07/17/18 05:50 Sodium 139 mEq/L (136-145) 07/19/18 08:00 Potassium 3.7 mEq/L (3.5-5.1) 07/19/18 08:00 Chloride 111 mEq/L (98-107) H 07/19/18 08:00 Carbon Dioxide 23.1 mEq/L (21.0-31.0) 07/19/18 08:00 Anion Gap 8.6 (7.0-16.0) 07/19/18 08:00 BUN 14 mg/dL (7-25) 07/19/18 08:00 Creatinine 1.2 mg/dL (0.7-1.3) 07/19/18 08:00 Est GFR ( Amer) TNP 07/19/18 08:00 Est GFR (Non-Af Amer) TNP 07/19/18 08:00 BUN/Creatinine Ratio 11.7 07/19/18 08:00 Glucose 166 mg/dL (70-105) H 07/19/18 08:00 POC Glucose 156 MG/DL (70 - 105) H 07/19/18 05:40 Whole Bld Lactic Acid 1.15 mmol/L (0.60-1.99) 07/14/18 12:25 Calcium 7.7 mg/dL (8.6-10.3) L 07/19/18 08:00 Phosphorus 1.3 mg/dL (2.5-5.0) L 07/14/18 12:25 Magnesium 1.8 mg/dL (1.9-2.7) L 07/18/18 05:35 Total Bilirubin 0.3 mg/dL (0.3-1.0) 07/18/18 05:35 AST 21 U/L (13-39) 07/18/18 05:35 ALT 8 U/L (7-52) 07/18/18 05:35 Alkaline Phosphatase 57 U/L (34-104) 07/18/18 05:35 Total Protein 6.3 gm/dL (6.0-8.3) 07/18/18 05:35 Albumin 2.4 gm/dL (4.2-5.5) L 07/18/18 05:35 Globulin 3.9 gm/dL 07/18/18 05:35 Albumin/Globulin Ratio 0.6 (1.0-1.8) L 07/18/18 05:35 Triglycerides 102 mg/dL (<150) 07/17/18 05:50 Cholesterol 70 mg/dL (<200) 07/17/18 05:50 LDL Cholesterol Direct 35 mg/dL (75-193) L 07/17/18 05:50 HDL Cholesterol 19 mg/dL (23-92) L 07/17/18 05:50 TSH 2.74 uIU/ml (0.34-5.60) 07/16/18 04:20 Urine Source CLEAN C 07/14/18 13:50 Urine Color YELLOW 07/14/18 13:50 Urine Clarity CLEAR (CLEAR) 07/14/18 13:50 Urine pH 6.0 (4.6 - 8.0) 07/14/18 13:50 Ur Specific [place] 1.010 (1.005-1.030) 07/14/18 13:50 Urine Protein 30 mg/dL (NEGATIVE) H 07/14/18 13:50 Urine Glucose (UA) NEGATIVE mg/dL (NEGATIVE) 07/14/18 13:50 Urine Ketones NEGATIVE mg/dL (NEGATIVE) 07/14/18 13:50 Urine Blood NEGATIVE (NEGATIVE) 07/14/18 13:50 Urine Nitrate NEGATIVE (NEGATIVE) 07/14/18 13:50 Urine Bilirubin NEGATIVE (NEGATIVE) 07/14/18 13:50 Urine Urobilinogen 0.2 E.U./dL (0.2 - 1.0) 07/14/18 13:50 Ur Leukocyte Esterase NEGATIVE (NEGATIVE) 07/14/18 13:50 Urine RBC 0-2 /hpf (0-5) H 07/14/18 13:50 Urine WBC 0-2 /hpf (0-5) 07/14/18 13:50 Ur Epithelial Cells FEW /lpf (FEW) 07/14/18 13:50 Amorphous Sediment MODERATE URATES (NONE SEEN) 07/14/18 13:50 Urine Bacteria 1+ /hpf (NONE SEEN) H 07/14/18 13:50 Vancomycin Trough 6.1 ug/mL (5-10) 07/19/18 08:00 - Physical Exam Vitals and I&O: Vital Signs Temp 98.6 F 07/19/18 04:00 Pulse 70 07/19/18 04:00 Resp 18 07/19/18 04:00 BP 125/61 07/19/18 04:00 Pulse Ox 97 07/19/18 04:00 Intake & Output 07/18/18 07/19/18 07/19/18 18:59 06:59 18:59 Intake Total 1000 969.5 Balance 1000 969.5 Weight (lbs) 76.067 kg Intake: Intake, IV Amount 1000 919.5 D5-0.9%Ns 1,000 ml @ 90 1000 919.5 mls/hr IV .Q11H7M [facility] Rx# :[id number] Oral 50 Other: # Voids 3 Weight Source Bedscale Active Medications: Current Medications Acetaminophen (Tylenol Extra Strength) 500 mg PO Q6H PRN PRN Reason: Pain or Fever >101 Stop: 09/16/18 08:57 Ascorbic Acid (Vitamin C) 500 mg PO DAILY [facility] Stop: 09/13/18 08:59 Last Admin: 07/18/18 09:25 Dose: 500 mg Atorvastatin Calcium (Lipitor) 10 mg PO HS [facility] Stop: 09/12/18 20:59 Last Admin: 07/18/18 20:32 Dose: 10 mg Cephalexin Monohydrate (Keflex) 250 mg PO QID [facility] Stop: 07/24/18 08:59 Donepezil HCl (Aricept) 10 mg PO HS [facility] Stop: 09/12/18 20:59 Last Admin: 07/18/18 20:33 Dose: 10 mg Ferrous Sulfate (Iron) 325 mg PO DAILY [facility] Stop: 09/13/18 08:59 Last Admin: 07/18/18 09:25 Dose: 325 mg Folic Acid (Folate) 1 mg PO DAILY [facility] Stop: 09/13/18 08:59 Last Admin: 07/18/18 09:25 Dose: 1 mg Hydromorphone HCl (Dilaudid) 1 mg IVP Q6HR PRN PRN Reason: Pain (Severe) Stop: 09/16/18 08:55 Last Admin: 07/19/18 02:00 Dose: 1 mg Dextrose/Sodium Chloride (D5-0.9%Ns) 1,000 mls @ 90 mls/hr IV .Q11H7M [facility] Stop: 09/14/18 04:29 Last Admin: 07/19/18 02:51 Dose: 90 mls/hr Insulin Aspart (Novolog Insulin Sliding Scale) 0 units SUBQ Q6HR [facility]; Protocol Stop: 09/15/18 00:00 Last Admin: 07/19/18 05:44 Dose: 2 units Levothyroxine Sodium 0.1 mg/ (Levothyroxine Sodium 0.0375 mg) 0.1375 mg PO QDAC [facility] Stop: 09/13/18 07:29 Last Admin: 07/19/18 06:35 Dose: 0.1375 mg Lorazepam (Ativan) 1 mg PO Q8HR PRN; Protocol PRN Reason: Agitation Stop: 09/13/18 10:27 Last Admin: 07/16/18 13:25 Dose: 1 mg Megestrol Acetate (Megace) 40 mg PO BID [facility]; Protocol Stop: 09/12/18 16:59 Last Admin: 07/18/18 16:37 Dose: 40 mg Tamsulosin HCl (Flomax) 0.4 mg PO QPM [facility] Stop: 09/12/18 16:59 Last Admin: 07/18/18 16:37 Dose: 0.4 mg General: Cooperative, Other (Slepping but arousable) HEENT: Atraumatic Neck: Supple Cardiovascular: Regular rate Lungs: Clear to auscultation Abdomen: Bowel sounds Extremities: Other (Amputation of BK of right leg) Neurological: Other (non ambulatory) Skin: Other (Warm and dry) Psych/Mental Status: Other (Confused) - Procedures Procedures: Procedures Procedure Code Date DETACHMENT AT RIGHT LOWER LEG, HIGH, OPEN APPROACH [id number] 07/14/18 OTHER GROUP THERAPY 94.44 04/17/13 Assessment/Plan - Problem List Patient Problems: All Active Problems FESTERING WOUND TO RIGHT #1/2 TOES (Acute) - Assessment Assessment: Current Active Problems Problem Status Onset FESTERING WOUND TO RIGHT #1/2 TOES Acute Patient is awake, alert, calm, in no acute distress. Dx: Cellulitis of right foot, S/P BK right leg, DM, HTN, A-fib, CAD, PVD, Hypothyroidism, Dementia. - Plan Plan: Patient is in IV NS, AB change to Keflex. Pain control, Continue with SNF meds. BK Amputation was done. Follow by Surgery and ID. Possible DC today. Will continue to monitor. Nutritional Asmnt/Malnutr-PDOC - Dietary Evaluation Malnutrition Findings (Please click <Entered> for more info): Nutritional Asmnt/Malnutrition Start: 07/15/18 14: 55 Text: Status: Complete Freq: Protocol: Document 07/15/18 14:57 WILLIAM (Rec: 07/15/18 15:33 [email or web address]) Nutritional Asmnt/Malnutrition Patient General Information Nutritional Screening High Risk Diagnosis cellulitis Pertinent Medical Hx/Surgical Hx AFIB, CAD, CHF, HTN, dementia, schizophrenia, DM, hypothyroidism, cellulitis, benign prostatic enlarge Subjective Information Pt receiving an ultrasound by nursing staff at time of visit ; RD unable to speak w/ pt. Per EMR, pt finished 50% of dinner on day of admit. Current Diet Order/ Nutrition Support [facility] soft ground, CCHO, nectar thick liquids, fortified w/ 8 oz HPN TID Pertinent Medications Vit C, lipitor, iron, folate, novolog, levemir, megace, glucophage, vancomycin, Nacl 0 .9%, Pertinent Labs 07/15: BUN 48, Cr 1.4, glucose 75, POC 110-121, Alb 2.7 07/14: BUN 51, Cr 1.6, glucose 185, POC 83-203, Alb 3.0, Phos 1.3 Nutritional Hx/Data Height 1.78 m Height (Calculated Centimeters) 177.8 Current Weight (lbs) 71.395 kg Weight (Calculated Kilograms) 71.4 Weight (Calculated Grams) 20089.4 [place] Body Weight 166 lb Body Mass Index (BMI) 22.6 Weight Status Approriate GI Symptoms GI Symptoms None Last BM none noted Difficult in: None Food Allergies No Skin Integrity/Comment: reddened and bruise right big toe, reddened pressure area to right knee, lacerations to rt /lt legs, edema on right foot Estimated Nutritional Goals BEE in Kcals: Using Current wt Calories/Kcals/Kg 25-30 Kcals Calculated 5129-3506 Protein: Using Current wt Protein g/k-1.2 Protein Calculated 72-86g Fluid: ml 4338-0829 (1 ml/kcal) Nutritional Problem 1. Problem Problem Altered nutrition related lab values Etiology hx of DM and dehydration/renal insufficiency per ED note Signs/Symptoms: BUN 48, Cr 1.4, POC 110-121 Malnutrition Alert Is there a minimum of two criteria No selected? Query Text:Check all the applicable criteria. A minimum of two criteria are recommended for diagnosis of either severe or non-severe malnutrition. Malnutrition Related to Morbid Obesity Malnutrition related to morbid obesity No Intervention/Recommendation Comments 1. Continue with [facility] soft ground, CCHO, nectar thick liquid diet as ordered. Supplement w/ glucerna shake TID as ordered 2. MD to monitor insulin regimen for optimal glycemic control and monitor hydration status 3. Monitor PO intake, wt, labs and skin integrity 4. F/U as moderate risk in 3-5 days, 07/18-07/20 Expected Outcomes/Goals Expected Outcomes/Goals 1. PO intake to meet at least 75% of nutritional needs 2. Wt stability, skin integrity to improve, and nutrition related labs to approach normal limits Reviewed by Beatrice Smith RD
--- NOTE | 2018-07-19 09:12 | General Progress Note ---
Subjective - Review of Systems Service Date: 07/19/18 Events since last encounter: labs okl redressed, incision clean and healing may DC Objective - Results Result Diagrams: 07/18/18 05:35 07/19/18 08:00 Recent Labs: Laboratory Last Values WBC 6.6 Th/cmm (4.8-10.8) 07/18/18 05:35 RBC 3.03 Mil/cmm (3.80-5.80) L 07/18/18 05:35 Hgb 9.6 gm/dL (12-16) L 07/18/18 05:35 Hct 28.3 % (41.0-60) L 07/18/18 05:35 MCV 93.3 fl (80-99) 07/18/18 05:35 MCH 31.6 pg (27.0-31.0) H 07/18/18 05:35 MCHC Differential 33.9 pg (28.0-36.0) 07/18/18 05:35 RDW 12.1 % (11.5-20.0) 07/18/18 05:35 Plt Count 301 Th/cmm (150-400) 07/18/18 05:35 MPV 7.0 fl 07/18/18 05:35 Neutrophils % 71.4 % (40.0-80.0) 07/18/18 05:35 Lymphocytes % 13.9 % (20.0-50.0) L 07/18/18 05:35 Monocytes % 10.8 % (2.0-10.0) H 07/18/18 05:35 Eosinophils % 3.6 % (0.0-5.0) 07/18/18 05:35 Basophils % 0.3 % (0.0-2.0) 07/18/18 05:35 ESR 135 mm/hr (0-20) H 07/14/18 12:25 PT 11.0 SECONDS (9.5-11.5) 07/17/18 05:50 INR 1.06 (0.5-1.4) 07/17/18 05:50 PTT (Actin FS) 27.2 SECONDS (26.0-38.0) 07/17/18 05:50 Sodium 139 mEq/L (136-145) 07/19/18 08:00 Potassium 3.7 mEq/L (3.5-5.1) 07/19/18 08:00 Chloride 111 mEq/L (98-107) H 07/19/18 08:00 Carbon Dioxide 23.1 mEq/L (21.0-31.0) 07/19/18 08:00 Anion Gap 8.6 (7.0-16.0) 07/19/18 08:00 BUN 14 mg/dL (7-25) 07/19/18 08:00 Creatinine 1.2 mg/dL (0.7-1.3) 07/19/18 08:00 Est GFR ( Amer) TNP 07/19/18 08:00 Est GFR (Non-Af Amer) TNP 07/19/18 08:00 BUN/Creatinine Ratio 11.7 07/19/18 08:00 Glucose 166 mg/dL (70-105) H 07/19/18 08:00 POC Glucose 156 MG/DL (70 - 105) H 07/19/18 05:40 Whole Bld Lactic Acid 1.15 mmol/L (0.60-1.99) 07/14/18 12:25 Calcium 7.7 mg/dL (8.6-10.3) L 07/19/18 08:00 Phosphorus 1.3 mg/dL (2.5-5.0) L 07/14/18 12:25 Magnesium 1.8 mg/dL (1.9-2.7) L 07/18/18 05:35 Total Bilirubin 0.3 mg/dL (0.3-1.0) 07/18/18 05:35 AST 21 U/L (13-39) 07/18/18 05:35 ALT 8 U/L (7-52) 07/18/18 05:35 Alkaline Phosphatase 57 U/L (34-104) 07/18/18 05:35 Total Protein 6.3 gm/dL (6.0-8.3) 07/18/18 05:35 Albumin 2.4 gm/dL (4.2-5.5) L 07/18/18 05:35 Globulin 3.9 gm/dL 07/18/18 05:35 Albumin/Globulin Ratio 0.6 (1.0-1.8) L 07/18/18 05:35 Triglycerides 102 mg/dL (<150) 07/17/18 05:50 Cholesterol 70 mg/dL (<200) 07/17/18 05:50 LDL Cholesterol Direct 35 mg/dL (75-193) L 07/17/18 05:50 HDL Cholesterol 19 mg/dL (23-92) L 07/17/18 05:50 TSH 2.74 uIU/ml (0.34-5.60) 07/16/18 04:20 Urine Source CLEAN C 07/14/18 13:50 Urine Color YELLOW 07/14/18 13:50 Urine Clarity CLEAR (CLEAR) 07/14/18 13:50 Urine pH 6.0 (4.6 - 8.0) 07/14/18 13:50 Ur Specific [place] 1.010 (1.005-1.030) 07/14/18 13:50 Urine Protein 30 mg/dL (NEGATIVE) H 07/14/18 13:50 Urine Glucose (UA) NEGATIVE mg/dL (NEGATIVE) 07/14/18 13:50 Urine Ketones NEGATIVE mg/dL (NEGATIVE) 07/14/18 13:50 Urine Blood NEGATIVE (NEGATIVE) 07/14/18 13:50 Urine Nitrate NEGATIVE (NEGATIVE) 07/14/18 13:50 Urine Bilirubin NEGATIVE (NEGATIVE) 07/14/18 13:50 Urine Urobilinogen 0.2 E.U./dL (0.2 - 1.0) 07/14/18 13:50 Ur Leukocyte Esterase NEGATIVE (NEGATIVE) 07/14/18 13:50 Urine RBC 0-2 /hpf (0-5) H 07/14/18 13:50 Urine WBC 0-2 /hpf (0-5) 07/14/18 13:50 Ur Epithelial Cells FEW /lpf (FEW) 07/14/18 13:50 Amorphous Sediment MODERATE URATES (NONE SEEN) 07/14/18 13:50 Urine Bacteria 1+ /hpf (NONE SEEN) H 07/14/18 13:50 Vancomycin Trough 6.1 ug/mL (5-10) 07/19/18 08:00 - Physical Exam Vitals and I&O: Vital Signs Temp 98.6 F 07/19/18 04:00 Pulse 70 07/19/18 04:00 Resp 18 07/19/18 04:00 BP 125/61 07/19/18 04:00 Pulse Ox 97 07/19/18 04:00 Intake & Output 07/18/18 07/19/18 07/19/18 18:59 06:59 18:59 Intake Total 1000 969.5 Balance 1000 969.5 Weight (lbs) 76.067 kg Intake: Intake, IV Amount 1000 919.5 D5-0.9%Ns 1,000 ml @ 90 1000 919.5 mls/hr IV .Q11H7M [facility] Rx# :[id number] Oral 50 Other: # Voids 3 Weight Source Bedscale Active Medications: Current Medications Acetaminophen (Tylenol Extra Strength) 500 mg PO Q6H PRN PRN Reason: Pain or Fever >101 Stop: 09/16/18 08:57 Ascorbic Acid (Vitamin C) 500 mg PO DAILY [facility] Stop: 09/13/18 08:59 Last Admin: 07/18/18 09:25 Dose: 500 mg Atorvastatin Calcium (Lipitor) 10 mg PO HS [facility] Stop: 09/12/18 20:59 Last Admin: 07/18/18 20:32 Dose: 10 mg Cephalexin Monohydrate (Keflex) 250 mg PO QID [facility] Stop: 07/24/18 08:59 Donepezil HCl (Aricept) 10 mg PO HS [facility] Stop: 09/12/18 20:59 Last Admin: 07/18/18 20:33 Dose: 10 mg Ferrous Sulfate (Iron) 325 mg PO DAILY [facility] Stop: 09/13/18 08:59 Last Admin: 07/18/18 09:25 Dose: 325 mg Folic Acid (Folate) 1 mg PO DAILY [facility] Stop: 09/13/18 08:59 Last Admin: 07/18/18 09:25 Dose: 1 mg Hydromorphone HCl (Dilaudid) 1 mg IVP Q6HR PRN PRN Reason: Pain (Severe) Stop: 09/16/18 08:55 Last Admin: 07/19/18 02:00 Dose: 1 mg Dextrose/Sodium Chloride (D5-0.9%Ns) 1,000 mls @ 90 mls/hr IV .Q11H7M [facility] Stop: 09/14/18 04:29 Last Admin: 07/19/18 02:51 Dose: 90 mls/hr Insulin Aspart (Novolog Insulin Sliding Scale) 0 units SUBQ Q6HR [facility]; Protocol Stop: 09/15/18 00:00 Last Admin: 07/19/18 05:44 Dose: 2 units Levothyroxine Sodium 0.1 mg/ (Levothyroxine Sodium 0.0375 mg) 0.1375 mg PO QDAC [facility] Stop: 09/13/18 07:29 Last Admin: 07/19/18 06:35 Dose: 0.1375 mg Lorazepam (Ativan) 1 mg PO Q8HR PRN; Protocol PRN Reason: Agitation Stop: 09/13/18 10:27 Last Admin: 07/16/18 13:25 Dose: 1 mg Megestrol Acetate (Megace) 40 mg PO BID [facility]; Protocol Stop: 09/12/18 16:59 Last Admin: 07/18/18 16:37 Dose: 40 mg Tamsulosin HCl (Flomax) 0.4 mg PO QPM [facility] Stop: 09/12/18 16:59 Last Admin: 07/18/18 16:37 Dose: 0.4 mg General: Cooperative, Other (Slepping but arousable) HEENT: Atraumatic Neck: Supple Cardiovascular: Regular rate Lungs: Clear to auscultation Abdomen: Bowel sounds Extremities: Other (Amputation of BK of right leg) Neurological: Other (non ambulatory) Skin: Other (Warm and dry) Psych/Mental Status: Other (Confused) - Procedures Procedures: Procedures Procedure Code Date DETACHMENT AT RIGHT LOWER LEG, HIGH, OPEN APPROACH [id number] 07/14/18 OTHER GROUP THERAPY 94.44 04/17/13 Assessment/Plan - Problem List Patient Problems: All Active Problems FESTERING WOUND TO RIGHT #1/2 TOES (Acute) Nutritional Asmnt/Malnutr-PDOC - Dietary Evaluation Malnutrition Findings (Please click <Entered> for more info): Nutritional Asmnt/Malnutrition Start: 07/15/18 14: 55 Text: Status: Complete Freq: Protocol: Document 07/15/18 14:57 WILLIAM (Rec: 07/15/18 15:33 WILLIAM [email or web address]) Nutritional Asmnt/Malnutrition Patient General Information Nutritional Screening High Risk Diagnosis cellulitis Pertinent Medical Hx/Surgical Hx AFIB, CAD, CHF, HTN, dementia, schizophrenia, DM, hypothyroidism, cellulitis, benign prostatic enlarge Subjective Information Pt receiving an ultrasound by nursing staff at time of visit ; RD unable to speak w/ pt. Per EMR, pt finished 50% of dinner on day of admit. Current Diet Order/ Nutrition Support [facility] soft ground, CCHO, nectar thick liquids, fortified w/ 8 oz HPN TID Pertinent Medications Vit C, lipitor, iron, folate, novolog, levemir, megace, glucophage, vancomycin, Nacl 0 .9%, Pertinent Labs 07/15: BUN 48, Cr 1.4, glucose 75, POC 110-121, Alb 2.7 07/14: BUN 51, Cr 1.6, glucose 185, POC 83-203, Alb 3.0, Phos 1.3 Nutritional Hx/Data Height 1.78 m Height (Calculated Centimeters) 177.8 Current Weight (lbs) 71.395 kg Weight (Calculated Kilograms) 71.4 Weight (Calculated Grams) 07939.4 [place] Body Weight 166 lb Body Mass Index (BMI) 22.6 Weight Status Approriate GI Symptoms GI Symptoms None Last BM none noted Difficult in: None Food Allergies No Skin Integrity/Comment: reddened and bruise right big toe, reddened pressure area to right knee, lacerations to rt /lt legs, edema on right foot Estimated Nutritional Goals BEE in Kcals: Using Current wt Calories/Kcals/Kg 25-30 Kcals Calculated 7260-7216 Protein: Using Current wt Protein g/k-1.2 Protein Calculated 72-86g Fluid: ml 0086-6029 (1 ml/kcal) Nutritional Problem 1. Problem Problem Altered nutrition related lab values Etiology hx of DM and dehydration/renal insufficiency per ED note Signs/Symptoms: BUN 48, Cr 1.4, POC 110-121 Malnutrition Alert Is there a minimum of two criteria No selected? Query Text:Check all the applicable criteria. A minimum of two criteria are recommended for diagnosis of either severe or non-severe malnutrition. Malnutrition Related to Morbid Obesity Malnutrition related to morbid obesity No Intervention/Recommendation Comments 1. Continue with [facility] soft ground, CCHO, nectar thick liquid diet as ordered. Supplement w/ glucerna shake TID as ordered 2. MD to monitor insulin regimen for optimal glycemic control and monitor hydration status 3. Monitor PO intake, wt, labs and skin integrity 4. F/U as moderate risk in 3-5 days, 07/18-07/20 Expected Outcomes/Goals Expected Outcomes/Goals 1. PO intake to meet at least 75% of nutritional needs 2. Wt stability, skin integrity to improve, and nutrition related labs to approach normal limits Reviewed by Beatrice Smith RD
[2018-07-19 09:14] LABS: % BASOPHILS 0.1 % (0.0-2.0); % EOSINOPHILS 4.6 % (0.0-5.0); % MONOCYTES 9.7 % (2.0-10.0); % NEUTROPHILS 67.6 % (40.0-80.0); EOSINOPHILE ABSOLUTE 0.3 Th/cmm (0.1-0.4); HEMOGLOBIN 8.8 gm/dL (12-16); LYMPHOCYTE ABSOLUTE 1.1 Th/cmm (1.5-3.0); MEAN CELL VOLUME 94.2 fl (80-99); MEAN CORPUSCULAR HEMOGLOBIN 30.8 pg (27.0-31.0); MEAN CORPUSCULAR HGB CONC 32.6 pg (28.0-36.0); MEAN PLATELET VOLUME 7.8 fl; MONOCYTE ABSOLUTE 0.6 Th/cmm (0.3-1.0); NEUTROPHILE ABSOLUTE 4.2 Th/cmm (1.8-8.0); PLATELET COUNT 287 Th/cmm (150-400); RED BLOOD COUNT 2.87 Mil/cmm (3.80-5.80); RED CELL DISTRIBUTION WIDTH 12.1 % (11.5-20.0); WHITE BLOOD COUNT 6.2 Th/cmm (4.8-10.8)
[2018-07-19] MEDS: Ferrous Sulfate 325 MG TAB PO SCH (10:01)
[2018-07-19] MEDS: Dabigatran Mesylate 75 mg Cap PO SCH ×3 (10:02→17:09)
[2018-07-19] MEDS ORDERED: Probiotic Screen MC PRN (10:22)
--- NOTE | 2018-07-19 11:50 | Infectious Disease Prog Note ---
Infectious Disease Subjective - Review of Systems Service Date: 07/19/18 Subjective: There is no new change, no fever, Infectious Disease Objective - Results Result Diagrams: 07/19/18 08:00 07/19/18 08:00 Recent Labs: Laboratory Last Values WBC 6.2 Th/cmm (4.8-10.8) 07/19/18 08:00 RBC 2.87 Mil/cmm (3.80-5.80) L 07/19/18 08:00 Hgb 8.8 gm/dL (12-16) L 07/19/18 08:00 Hct 27.0 % (41.0-60) L 07/19/18 08:00 MCV 94.2 fl (80-99) 07/19/18 08:00 MCH 30.8 pg (27.0-31.0) 07/19/18 08:00 MCHC Differential 32.6 pg (28.0-36.0) 07/19/18 08:00 RDW 12.1 % (11.5-20.0) 07/19/18 08:00 Plt Count 287 Th/cmm (150-400) 07/19/18 08:00 MPV 7.8 fl 07/19/18 08:00 Neutrophils % 67.6 % (40.0-80.0) 07/19/18 08:00 Lymphocytes % 18.0 % (20.0-50.0) L 07/19/18 08:00 Monocytes % 9.7 % (2.0-10.0) 07/19/18 08:00 Eosinophils % 4.6 % (0.0-5.0) 07/19/18 08:00 Basophils % 0.1 % (0.0-2.0) 07/19/18 08:00 ESR 135 mm/hr (0-20) H 07/14/18 12:25 PT 11.0 SECONDS (9.5-11.5) 07/17/18 05:50 INR 1.06 (0.5-1.4) 07/17/18 05:50 PTT (Actin FS) 27.2 SECONDS (26.0-38.0) 07/17/18 05:50 Sodium 139 mEq/L (136-145) 07/19/18 08:00 Potassium 3.7 mEq/L (3.5-5.1) 07/19/18 08:00 Chloride 111 mEq/L (98-107) H 07/19/18 08:00 Carbon Dioxide 23.1 mEq/L (21.0-31.0) 07/19/18 08:00 Anion Gap 8.6 (7.0-16.0) 07/19/18 08:00 BUN 14 mg/dL (7-25) 07/19/18 08:00 Creatinine 1.2 mg/dL (0.7-1.3) 07/19/18 08:00 Est GFR ( Amer) TNP 07/19/18 08:00 Est GFR (Non-Af Amer) TNP 07/19/18 08:00 BUN/Creatinine Ratio 11.7 07/19/18 08:00 Glucose 166 mg/dL (70-105) H 07/19/18 08:00 POC Glucose 156 MG/DL (70 - 105) H 07/19/18 05:40 Whole Bld Lactic Acid 1.15 mmol/L (0.60-1.99) 07/14/18 12:25 Calcium 7.7 mg/dL (8.6-10.3) L 07/19/18 08:00 Phosphorus 1.3 mg/dL (2.5-5.0) L 07/14/18 12:25 Magnesium 1.8 mg/dL (1.9-2.7) L 07/18/18 05:35 Total Bilirubin 0.3 mg/dL (0.3-1.0) 07/18/18 05:35 AST 21 U/L (13-39) 07/18/18 05:35 ALT 8 U/L (7-52) 07/18/18 05:35 Alkaline Phosphatase 57 U/L (34-104) 07/18/18 05:35 Total Protein 6.3 gm/dL (6.0-8.3) 07/18/18 05:35 Albumin 2.4 gm/dL (4.2-5.5) L 07/18/18 05:35 Globulin 3.9 gm/dL 07/18/18 05:35 Albumin/Globulin Ratio 0.6 (1.0-1.8) L 07/18/18 05:35 Triglycerides 102 mg/dL (<150) 07/17/18 05:50 Cholesterol 70 mg/dL (<200) 07/17/18 05:50 LDL Cholesterol Direct 35 mg/dL (75-193) L 07/17/18 05:50 HDL Cholesterol 19 mg/dL (23-92) L 07/17/18 05:50 TSH 2.74 uIU/ml (0.34-5.60) 07/16/18 04:20 Urine Source CLEAN C 07/14/18 13:50 Urine Color YELLOW 07/14/18 13:50 Urine Clarity CLEAR (CLEAR) 07/14/18 13:50 Urine pH 6.0 (4.6 - 8.0) 07/14/18 13:50 Ur Specific [place] 1.010 (1.005-1.030) 07/14/18 13:50 Urine Protein 30 mg/dL (NEGATIVE) H 07/14/18 13:50 Urine Glucose (UA) NEGATIVE mg/dL (NEGATIVE) 07/14/18 13:50 Urine Ketones NEGATIVE mg/dL (NEGATIVE) 07/14/18 13:50 Urine Blood NEGATIVE (NEGATIVE) 07/14/18 13:50 Urine Nitrate NEGATIVE (NEGATIVE) 07/14/18 13:50 Urine Bilirubin NEGATIVE (NEGATIVE) 07/14/18 13:50 Urine Urobilinogen 0.2 E.U./dL (0.2 - 1.0) 07/14/18 13:50 Ur Leukocyte Esterase NEGATIVE (NEGATIVE) 07/14/18 13:50 Urine RBC 0-2 /hpf (0-5) H 07/14/18 13:50 Urine WBC 0-2 /hpf (0-5) 07/14/18 13:50 Ur Epithelial Cells FEW /lpf (FEW) 07/14/18 13:50 Amorphous Sediment MODERATE URATES (NONE SEEN) 07/14/18 13:50 Urine Bacteria 1+ /hpf (NONE SEEN) H 07/14/18 13:50 Vancomycin Trough 6.1 ug/mL (5-10) 07/19/18 08:00 - Physical Exam Vitals and I&O: Vital Signs Temp 98.6 F 07/19/18 04:00 Pulse 70 07/19/18 04:00 Resp 18 07/19/18 04:00 BP 125/61 07/19/18 04:00 Pulse Ox 97 07/19/18 04:00 Intake & Output 07/18/18 07/19/18 07/19/18 18:59 06:59 18:59 Intake Total 1000 969.5 Balance 1000 969.5 Weight (lbs) 76.067 kg Intake: Intake, IV Amount 1000 919.5 D5-0.9%Ns 1,000 ml @ 90 1000 919.5 mls/hr IV .Q11H7M [facility] Rx# :[id number] Oral 50 Other: # Voids 3 Weight Source Bedscale Active Medications: Current Medications Acetaminophen (Tylenol Extra Strength) 500 mg PO Q6H PRN PRN Reason: Pain or Fever >101 Stop: 09/16/18 08:57 Ascorbic Acid (Vitamin C) 500 mg PO DAILY [facility] Stop: 09/13/18 08:59 Last Admin: 07/19/18 10:01 Dose: 500 mg Atorvastatin Calcium (Lipitor) 10 mg PO HS [facility] Stop: 09/12/18 20:59 Last Admin: 07/18/18 20:32 Dose: 10 mg Cephalexin Monohydrate (Keflex) 250 mg PO QID [facility] Stop: 07/24/18 08:59 Last Admin: 07/19/18 10:01 Dose: 250 mg Donepezil HCl (Aricept) 10 mg PO HS [facility] Stop: 09/12/18 20:59 Last Admin: 07/18/18 20:33 Dose: 10 mg Ferrous Sulfate (Iron) 325 mg PO DAILY [facility] Stop: 09/13/18 08:59 Last Admin: 07/19/18 10:01 Dose: 325 mg Folic Acid (Folate) 1 mg PO DAILY [facility] Stop: 09/13/18 08:59 Last Admin: 07/19/18 10:01 Dose: 1 mg Hydromorphone HCl (Dilaudid) 1 mg IVP Q6HR PRN PRN Reason: Pain (Severe) Stop: 09/16/18 08:55 Last Admin: 07/19/18 02:00 Dose: 1 mg Dextrose/Sodium Chloride (D5-0.9%Ns) 1,000 mls @ 90 mls/hr IV .Q11H7M [facility] Stop: 09/14/18 04:29 Last Admin: 07/19/18 02:51 Dose: 90 mls/hr Insulin Aspart (Novolog Insulin Sliding Scale) 0 units SUBQ Q6HR [facility]; Protocol Stop: 09/15/18 00:00 Last Admin: 07/19/18 05:44 Dose: 2 units Lactobacillus Rhamnosus (Culturelle 15b) 1 each PO DAILY [facility] Stop: 09/18/18 08:59 Levothyroxine Sodium 0.1 mg/ (Levothyroxine Sodium 0.0375 mg) 0.1375 mg PO QDAC [facility] Stop: 09/13/18 07:29 Last Admin: 07/19/18 06:35 Dose: 0.1375 mg Lorazepam (Ativan) 1 mg PO Q8HR PRN; Protocol PRN Reason: Agitation Stop: 09/13/18 10:27 Last Admin: 07/16/18 13:25 Dose: 1 mg Megestrol Acetate (Megace) 40 mg PO BID [facility]; Protocol Stop: 09/12/18 16:59 Last Admin: 07/19/18 10:02 Dose: 40 mg Miscellaneous (Probiotic Screen) 1 ea MC PRN PRN PRN Reason: PROTOCOL Stop: 09/17/18 10:21 Tamsulosin HCl (Flomax) 0.4 mg PO QPM [facility] Stop: 09/12/18 16:59 Last Admin: 07/18/18 16:37 Dose: 0.4 mg General: no acute distress, well developed, well nourished HEENT: atraumatic, normocephalic, PERRLA, EOMI Neck: supple, no thyromegaly Cardiovascular: S1S2, regular Lungs: clear to auscultation bilaterally, clear to percussion Abdomen: soft, no tender, no distended Extremities: other ([id number]), no cyanosis, no clubbing, no edema Neurological: awake, alert, oriented Skin: intact - Procedures Procedures: Procedures Procedure Code Date DETACHMENT AT RIGHT LOWER LEG, HIGH, OPEN APPROACH [id number] 07/14/18 OTHER GROUP THERAPY 94.44 04/17/13 Infectious Disease Assmt/Plan - Problem List Patient Problems: All Active Problems FESTERING WOUND TO RIGHT #1/2 TOES (Acute) - Assessment Assessment: 1. Cellulitis of the right big toe and foot. Rule out osteomylitis. PERRLA peripheral artery disease. 2. Dementia. 3. Diabetes mellitus type 2. 4. Hypertension. 5. Carotid disease. 6. Atrial fibrillation. 7. Hypothyroidism. 8. BPH. 9. PAD. - Plan Plan: Will change antibitoics to Keflex po 250 mg po tid for 5 days. May dc antibiotics if ok with Dr Lemons. Wound care. Dc plan. Nutritional Asmnt/Malnutr-PDOC - Dietary Evaluation Malnutrition Findings (Please click <Entered> for more info): Nutritional Asmnt/Malnutrition Start: 07/15/18 14: 55 Text: Status: Complete Freq: Protocol: Document 07/15/18 14:57 KRISTOPHERPILAR (Rec: 07/15/18 15:33 WILLIAM [email or web address]) Nutritional Asmnt/Malnutrition Patient General Information Nutritional Screening High Risk Diagnosis cellulitis Pertinent Medical Hx/Surgical Hx AFIB, CAD, CHF, HTN, dementia, schizophrenia, DM, hypothyroidism, cellulitis, benign prostatic enlarge Subjective Information Pt receiving an ultrasound by nursing staff at time of visit ; RD unable to speak w/ pt. Per EMR, pt finished 50% of dinner on day of admit. Current Diet Order/ Nutrition Support [facility] soft ground, CCHO, nectar thick liquids, fortified w/ 8 oz HPN TID Pertinent Medications Vit C, lipitor, iron, folate, novolog, levemir, megace, glucophage, vancomycin, Nacl 0 .9%, Pertinent Labs 07/15: BUN 48, Cr 1.4, glucose 75, POC 110-121, Alb 2.7 07/14: BUN 51, Cr 1.6, glucose 185, POC 83-203, Alb 3.0, Phos 1.3 Nutritional Hx/Data Height 1.78 m Height (Calculated Centimeters) 177.8 Current Weight (lbs) 71.395 kg Weight (Calculated Kilograms) 71.4 Weight (Calculated Grams) 94479.4 [place] Body Weight 166 lb Body Mass Index (BMI) 22.6 Weight Status Approriate GI Symptoms GI Symptoms None Last BM none noted Difficult in: None Food Allergies No Skin Integrity/Comment: reddened and bruise right big toe, reddened pressure area to right knee, lacerations to rt /lt legs, edema on right foot Estimated Nutritional Goals BEE in Kcals: Using Current wt Calories/Kcals/Kg 25-30 Kcals Calculated 0595-3508 Protein: Using Current wt Protein g/k-1.2 Protein Calculated 72-86g Fluid: ml 5590-5986 (1 ml/kcal) Nutritional Problem 1. Problem Problem Altered nutrition related lab values Etiology hx of DM and dehydration/renal insufficiency per ED note Signs/Symptoms: BUN 48, Cr 1.4, POC 110-121 Malnutrition Alert Is there a minimum of two criteria No selected? Query Text:Check all the applicable criteria. A minimum of two criteria are recommended for diagnosis of either severe or non-severe malnutrition. Malnutrition Related to Morbid Obesity Malnutrition related to morbid obesity No Intervention/Recommendation Comments 1. Continue with [facility] soft ground, CCHO, nectar thick liquid diet as ordered. Supplement w/ glucerna shake TID as ordered 2. MD to monitor insulin regimen for optimal glycemic control and monitor hydration status 3. Monitor PO intake, wt, labs and skin integrity 4. F/U as moderate risk in 3-5 days, 07/18-07/20 Expected Outcomes/Goals Expected Outcomes/Goals 1. PO intake to meet at least 75% of nutritional needs 2. Wt stability, skin integrity to improve, and nutrition related labs to approach normal limits Reviewed by Beatrice Smith RD
[2018-07-20] MEDS ORDERED: Lactobacillus Rhamnosus GG 15 Billion CFU CAP.SPRINK PO SCH (09:00)
--- NOTE | 2018-07-20 22:46 | Discharge Summary ---
General Discharge Summary - Discharge Summary Date of Admission: 07/14/18 Admitting Diagnosis: Cellulitis of right foot, DM, HTN, A-fib, CAD, PVD, Hypothyroidism, Dementi Discharge Date: 07/19/18 Discharge Diagnosis: Gangrene of right foot, DM, HTN, A-fib, CAD, PVD, Hypothyroidism, BPA, Dementia, S/P BK amputation of right leg. Hospital Course: Patient was started in IV NS, IV Ceftriaxone that later was grimm to Cefepine. He was continue with SNF meds. He had amputation BK of right leg. He responded to treatment. Treatment: Patient was started in IV NS, Ceftriaxone that later was change to Cefepine, he was continue with SNF meds. He had BK amputation of right leg. He was follow by ID and Surgery. Disposition: Discharge/Transfered to SNF Home Medications: Home Medication Medication Instructions Recorded Type Furosemide [Lasix] 20 mg PO DAILY 04/17/13 History Insulin Glargine,Hum.rec.anlog 40 unit SQ DAILY 04/17/13 History [Lantus Solostar] Ascorbic Acid [Vitamin C] 1 tab PO DAILY 06/11/13 History Atorvastatin Calcium [Lipitor] 10 mg PO DAILY 06/11/13 History Donepezil Hcl [Aricept] 10 mg PO HS 06/11/13 History Folic Acid 1 mg PO DAILY 06/11/13 History Levothyroxine Sodium [Synthroid] 137.5 mcg PO DAILY 06/11/13 History Ferrous Sulfate [Ferosul] 330 mg PO DAILY 01/20/14 History Insulin Human Regular [NovoLIN R*] 0 units SUBQ DAILY 01/20/14 History Dabigatran Etexilate Mesylate 150 mg PO BID 03/29/18 History [Pradaxa] Dextrose 10% 250 ml IV PRN PRN 03/29/18 History Dextrose [Glucose Gel] 15 gm PO PRN PRN 03/29/18 History GLUCAGON HCl [Glucagen] 1 mg IM PRN PRN 03/29/18 History Metformin HCl 850 mg PO TID 03/29/18 History Tamsulosin [Flomax] 0.4 mg PO QPM 03/29/18 History Collagenase Clostridium Hist. 1 appl TP DAILY 07/14/18 History [Santyl] Megestrol Acetate [Megace] 40 mg PO BID 07/14/18 History Acetaminophen [Tylenol Extra 500 mg PO Q6H PRN tab 07/19/18 Rx Strength] Ascorbic Acid [Vitamin C] 500 mg PO DAILY tab 07/19/18 Rx Atorvastatin Calcium [Lipitor] 10 mg PO HS tab 07/19/18 Rx Folic Acid [Folate*] 1 mg PO DAILY tab 07/19/18 Rx Insulin Aspart Sliding Scale See Protocol SUBQ Q6HR unit 07/19/18 Rx [NovoLOG INSULIN SLIDING SCALE] Lactobacillus Rhamnosus GG 15B 1 each PO DAILY cap.[email or web address] 07/19/18 Rx [Culturelle 15B] Levothyroxine [Synthroid] 0.1375 mg PO QDAC tab 07/19/18 Rx Lorazepam [Ativan] 1 mg PO Q8HR PRN tab 07/19/18 Rx Activity: Bed Rest Discharge Diet: 2 Gram Sodium Consults and Follow-Up: Carlos Jackson [Primary Care Provider] - Consulting Speciality: Surgery Instructions: Wound Care, [id number], Dressing Change, [id number]
--- NOTE | 2018-07-23 11:22 | Pathology Report ---
[id number] Collection date: 07/17/2018 Surgeon: Dr. Lawrence Lemons Specimen Description: Right leg below the knee amputation Gross Description: Received in the unfixed state is a right lower leg below the knee amputation measuring 20 cm from the right big toe to the right heel and 35 cm from the right heel to the surgical transection margin. Multiple areas of brownish-black gangrenous ulceration is seen covering the first and second toes. Sectioning shows induration and degeneration that extends into the deep soft tissues and near the underlying bone. Sectioning the surgical margin shows intact skin and soft tissue without any changes. Examination of the arterial vessels shows areas of calcification and narrowing. [employer] sections are submitted in three cassettes labeled A1 to A3. Cassette A1 shows the gangrenous ulcers, cassette A2 the surgical transection margin, cassette 3 the arterial vessels. Microscopic Description: The histologic sections shows ulcerated necrotic skin with extensive suppurative inflammation consisting of large collections of neutrophils with a necrotic background. These changes are associated with organizing hemorrhage and granulation tissue. Sections of the surgical margins show intact skin without evidence for necrosis. The arterial vessels show extensive calcification and narrowing consistent with arteriosclerotic vascular disease. Diagnosis: 1. Ulcerated skin and soft tissue showing suppurative inflammation and necrosis, right foot. 2. The arterial vessels show calcification and extensive peripheral vascular occlusive disease. [facility]# [id number]
== END 2018-07-19 18:10 | DRG 239 ==
LOC: ER 11:59 → MSI 13:29 → TELE 07-17 19:00 → MSI 07-18 10:43
PROVIDERS: ADMIT General Practice; ATTEND General Practice
PROC: 0Y6H0Z1 Detachment at Right Lower Leg, High, Open Approach (ICD-10-PCS; principal; 2018-07-17)
DX: E11.52 Type 2 diabetes mellitus with diabetic peripheral angiopathy with gangrene (principal); E43 Unspecified severe protein-calorie malnutrition; I96 Gangrene, not elsewhere classified; L03.116 Cellulitis of left lower limb; L03.115 Cellulitis of right lower limb; N39.0 Urinary tract infection, site not specified; I13.0 Hypertensive heart and chronic kidney disease with heart failure and stage 1 through stage 4 chronic kidney disease, or unspecified chronic kidney disease; E11.621 Type 2 diabetes mellitus with foot ulcer; L97.529 Non-pressure chronic ulcer of other part of left foot with unspecified severity; I48.91 Unspecified atrial fibrillation; I25.10 Atherosclerotic heart disease of native coronary artery without angina pectoris; E03.9 Hypothyroidism, unspecified; N40.0 Benign prostatic hyperplasia without lower urinary tract symptoms; Z66 Do not resuscitate; N18.1 Chronic kidney disease, stage 1; D64.9 Anemia, unspecified; E86.0 Dehydration; I50.9 Heart failure, unspecified; F20.9 Schizophrenia, unspecified; E11.22 Type 2 diabetes mellitus with diabetic chronic kidney disease; Z68.24 Body mass index [BMI] 24.0-24.9, adult; Z88.8 Allergy status to other drugs, medicaments and biological substances; Z79.4 Long term (current) use of insulin
CPT/HCPCS: 36415-UA; 71045-TC; 73620-TC-RT; 73630-TC-LT; 78315-TC; 80048-TC; 80053-TC; 80061-TC; 80202-TC; 81001-TC; 82947-TC; 82948-90; 83036-90; 83605; 83735-TC; 84100-TC; 84443-TC; 85025-TC; 85610-TC; 85652-TC; 87070-90; 90799; 93005; 93925-TC; 93971-TC-RT; 96372; A9503; J0690; J0692; J0696; J1170; J1815; J2060; J2405; J2704; J2710; J3010; J3370; J7030; J7042; J7121; J7799; X6024; X6258; Z7610

== ENCOUNTER 2018-08-26 17:12 | Inpatient (IN) | payer MEDICARE, OTHER ==
[2018-08-26] MEDS ORDERED: Lactated Ringer 1,000 ML IV ONE (17:25)
[2018-08-26 18:04] LABS: % BASOPHILS 0.1 % (0.0-2.0); % EOSINOPHILS 0.4 % (0.0-5.0)
[2018-08-26 18:06] LABS: % LYMPHOCYTES 6.8 % (20.0-50.0); % MONOCYTES 3.6 % (2.0-10.0); % NEUTROPHILS 89.1 % (40.0-80.0); HEMOGLOBIN 9.7 gm/dL (12-16); LYMPHOCYTE ABSOLUTE 0.6 Th/cmm (1.5-3.0); MEAN CELL VOLUME 93.5 fl (80-99); MEAN CORPUSCULAR HEMOGLOBIN 31.3 pg (27.0-31.0); MEAN CORPUSCULAR HGB CONC 33.4 pg (28.0-36.0); MEAN PLATELET VOLUME 8.6 fl; MONOCYTE ABSOLUTE 0.3 Th/cmm (0.3-1.0); NEUTROPHILE ABSOLUTE 8.5 Th/cmm (1.8-8.0); PLATELET COUNT 256 Th/cmm (150-400); RED BLOOD COUNT 3.11 Mil/cmm (3.80-5.80); RED CELL DISTRIBUTION WIDTH 13.7 % (11.5-20.0); WHITE BLOOD COUNT 9.4 Th/cmm (4.8-10.8)
[2018-08-26 18:27] LABS: ALB/GLOB RATIO 0.4 (1.0-1.8); ALBUMIN 2.3 gm/dL (4.2-5.5); ALKALINE PHOSPHATASE 58 U/L (34-104); ANION GAP 13.4 (7.0-16.0); BILIRUBIN,TOTAL 0.4 mg/dL (0.3-1.0); BUN - UREA NITROGEN 70 mg/dL (7-25); CALCIUM SERUM 8.6 mg/dL (8.6-10.3); CHLORIDE 132 mEq/L (98-107); CREATININE - SERUM 2.6 mg/dL (0.7-1.3); GLUCOSE 107 mg/dL (70-105); PHOSPHOROUS 2.3 mg/dL (2.5-5.0); SGOT 26 U/L (13-39); SGPT/ALT 28 U/L (7-52); TOTAL PROTEIN,SERUM 7.5 gm/dL (6.0-8.3)
[2018-08-26 18:53] LABS: POTASSIUM SERUM 2.4 mEq/L (3.5-5.1); SODIUM SERUM 158 mEq/L (136-145)
[2018-08-26] MEDS ORDERED: Potassium Chloride 20 mEq ER Tab PO ONE (18:58)
--- NOTE | 2018-08-26 19:25 | ED Physician Chart ---
ED Chief Complaint/HPI - Patient Information Date Seen:: 08/26/18 Time Seen:: 18:07 Chief Complaint:: failure to thrive History of Present Illness:: failure to thrive. patient hasn't eaten in a week. DNR controversy with family. Allergies:: Allergies Allergy/AdvReac Type Severity Reaction Status Date / Time doxycycline Allergy Verified 08/26/18 17:41 nalbuphine Allergy Verified 08/26/18 17:41 Vitals:: Vital Signs - 8 hr 08/26/18 18:07 Temp 97.7 F HR 63 RR 18 BP 117/81 O2 Sat % 95 Review:: Nurse's Note Reviewed ED Review of Systems - Review of Systems General/Constitutional: No fever, No chills, Weight loss, Weakness, Loss of appetite Skin: No skin lesions, No rash, No bruising Head: No headache, No light-headedness Eyes: No loss of vision, No pain, No diplopia ENT: No earache, No nasal drainage, No sore throat, No tinnitus Neck: No neck pain, No swelling, No thyromegaly, No stiffness, No mass noted Cardio Vascular: No chest pain, No palpitations, No PND, No orthopnea, No edema Pulmonary: No SOB, No cough, No sputum, No wheezing GI: No nausea, No vomiting, No diarrhea, No pain, No melena, No hematochezia, No constipation, No hematemesis G/U: No dysuria, No frequency, No hematuria Musculoskeletal: No bone or joint pain, No back pain, No muscle pain Endocrine: No polyuria, No polydipsia Psychiatric: No prior psych history, No depression, No anxiety, No suicidal ideation Hematopoietic: No bruising, No lymphadenopathy Allergic/Immuno: No urticaria, No angioedema Neurological: No syncope, No focal symptoms, No weakness, No paresthesia, No headache, No seizure, No dizziness, No confusion, No vertigo ED Past Medical History - Past Medical History Obtainable: No Past Medical History: HTN, DM, Dyslipidemia, Thyroid disorder, Dementia, Other ( anemia; BPH) Surgical History: CABG, other (Right BKA) Psychiatricy History: Dementia (impulse disorder), Other Family Medical History - Family Member Mother History Unknown: Yes ED Physical Exam - Physical Examination Other Gen/Cons comments:: chronically ill and pale appearing. Open mouth with oxygen on. Head: Atraumatic Eyes: Lids, conjuctiva normal, PERRL, EOMI Other Eyes comments:: pinpoint pupils. Other Skin comments:: very poor skin turgor. ENMT: External ears, nose nl Other ENMT comments:: extremely dry oral mucosa. Neck: Nontender, No nuchal rigidity Respiratory: Nl effort/Exclusion Other Respiratory comments:: dry crackles at bases more on the right than on the left. Cardio Vascular: RRR, No murmur, gallop, rubs, NL S1 S2 GI: No tenderness/rebounding/guarding, No organomegaly, No hernia, Normal BS's, Nondistended, No mass/bruits, No McBurney tenderness Other GI comments:: umbilical hernia, not fully reducible. : No CVA tenderness Other Extremities comments:: right BKA. Wounds on LLE. Other Neuro/Psych comments:: very somnolent. ED Labs/Radiology/EKG Results - Lab Results Results: Laboratory Tests 08/26/18 08/26/18 08/26/18 17:35 17:35 18:34 WBC 9.4 RBC 3.11 L Hgb 9.7 L Hct 29.0 L MCV 93.5 MCH 31.3 H MCHC Differential 33.4 RDW 13.7 Plt Count 256 MPV 8.6 Neutrophils % 89.1 H Lymphocytes % 6.8 L Monocytes % 3.6 Eosinophils % 0.4 Basophils % 0.1 Sodium 158 H D Potassium 2.4 L* Chloride 132 H Carbon Dioxide 15.0 L Anion Gap 13.4 BUN 70 H Creatinine 2.6 H Est GFR ( Amer) TNP Est GFR (Non-Af Amer) TNP BUN/Creatinine Ratio 26.9 Glucose 107 H POC Glucose 94 Calcium 8.6 Phosphorus 2.3 L Magnesium 2.0 Total Bilirubin 0.4 AST 26 ALT 28 Alkaline Phosphatase 58 Total Protein 7.5 Albumin 2.3 L Globulin 5.2 Albumin/Globulin Ratio 0.4 L ED Assessment - Assessment General Assessment: sign out given to Dr. Spann at 7:25 p.m. ED Septic Shock - . Is Septic Shock (SBP<90, OR Lactate>4 mmol\L) present?: No - <6hrs of presentation: Vital Signs: Vital Signs - 8 hr 08/26/18 18:07 Temp 97.7 F HR 63 RR 18 BP 117/81 O2 Sat % 95 ED Reassessment (Disposition) - Reassessment Reassessment Condition:: Unchanged - Diagnosis Diagnosis:: Failure to Thrive Dehydration Hypokalemia Dementia
[2018-08-26] MEDS ORDERED: D5-0.45NS w/40 mEq KCL 1,000 ML IV ONE ×2 (19:56→19:59)
[2018-08-26] MEDS ORDERED: Piperacillin Sodium/Tazobact 2.25 gm Vial IV ONE (20:01)
[2018-08-26] MEDS ORDERED: Sodium Chloride 0.9% 1,000 ML IV SCH (23:04)
[2018-08-26 23:19] LABS: INR 1.14 (0.5-1.4); PROTHROMBIN TIME (TEST) 11.8 SECONDS (9.5-11.5)
[2018-08-26] MEDS ORDERED: Sodium Chloride 0.9% 1,000 ML IV ONE (23:29)
[2018-08-27 00:29] VITALS: BP 137/46
[2018-08-27 04:45] LABS: HEMOGLOBIN 9.5 gm/dL (12-16); MEAN CELL VOLUME 92.9 fl (80-99); MEAN CORPUSCULAR HEMOGLOBIN 31.6 pg (27.0-31.0); MEAN PLATELET VOLUME 8.7 fl; PLATELET COUNT 239 Th/cmm (150-400); RED BLOOD COUNT 3.02 Mil/cmm (3.80-5.80); RED CELL DISTRIBUTION WIDTH 14.3 % (11.5-20.0); WHITE BLOOD COUNT 9.8 Th/cmm (4.8-10.8)
[2018-08-27 05:28] LABS: INR 1.13 (0.5-1.4); PROTHROMBIN TIME (TEST) 11.6 SECONDS (9.5-11.5)
[2018-08-27 05:49] LABS: ALB/GLOB RATIO 0.5 (1.0-1.8); ALBUMIN 2.2 gm/dL (4.2-5.5); ALKALINE PHOSPHATASE 54 U/L (34-104); BILIRUBIN,TOTAL 0.4 mg/dL (0.3-1.0); BUN - UREA NITROGEN 69 mg/dL (7-25); CALCIUM SERUM 8.4 mg/dL (8.6-10.3); CARBON DIOXIDE 14.8 mEq/L (21.0-31.0); CHLORIDE 133 mEq/L (98-107); CREATININE - SERUM 2.6 mg/dL (0.7-1.3); SGOT 18 U/L (13-39); SGPT/ALT 23 U/L (7-52); TOTAL PROTEIN,SERUM 7.1 gm/dL (6.0-8.3)
[2018-08-27 06:04] LABS: POTASSIUM SERUM 2.8 mEq/L (3.5-5.1); SODIUM SERUM 160 mEq/L (136-145)
[2018-08-27] MEDS: INSULIN ASPART SLIDING SCALE 100 UNITS/ML UNIT SUBQ SCH ×4 (06:29→20:33)
[2018-08-27 07:15] LABS: BAND NEUTROPHILE 0 % (0-10); BASOPHIL 0 % (0-3); EOSINOPHIL 1 % (0-5); LYMPHOCYTE 6 % (20-50); MONOCYTE 3 % (2-10); NEUTROPHILS 90 % (40-80)
[2018-08-27] MEDS ORDERED: INSULIN ASPART SLIDING SCALE 100 UNITS/ML UNIT SUBQ SCH (07:30)
[2018-08-27] MEDS ORDERED: Dextrose 5% 1,000 ML IV SCH (08:45)
--- NOTE | 2018-08-27 08:53 | History and Physical ---
History of Present Illness - HPI Chief Complaint: Not eating for a 3 days HPI: Per SNF and family information patient has not eating in 2 days, case discussed with family and they are agree to give permission to place G-tube. Vital Signs: Last Vital Signs Temp 95.4 F 08/27/18 07:25 Pulse 87 08/27/18 07:25 Resp 17 08/27/18 07:25 BP 136/50 08/27/18 07:25 Pulse Ox 100 08/27/18 07:25 Past Medical History Cardiovascular: Report: CAD, CHF, HTN Pulmonary: Report: No Pertinent Hx TAX COMPLIANCE OFFICER: Report: Dementia GI: Report: No Pertinent Hx Psych: Report: Schizophrenia Musculoskeletal: Report: Muscle Atrophy, Weakness, Other (S/P BK amputation) Rheumatologic: Report: No pertinent Hx Infectious Disease: Report: No Pertinent Hx Renal/: Report: Chronic Renal Insuff Endocrine: Report: Diabetes, Hypothyroidism Dermatology: Report: Cellulitis, Rash - Past Surgical History Past Surgical History: Other (S/P BK amputation) Family Medical History - Family Member Mother History Unknown: Yes Ethnicity: Social History Smoke: No Alcohol: None Drugs: None Lives: Shelter Domestic Violence: Negative - Medications Home Medications: Home Medication Medication Instructions Recorded Type Acetaminophen [Tylenol] 650 mg PO Q6HR PRN 08/26/18 History Ascorbic Acid [Vitamin C] 500 mg PO DAILY 08/26/18 History Atorvastatin Calcium [Lipitor] 10 mg PO QPM 08/26/18 History Dabigatran Etexilate Mesylate 150 mg PO BID 08/26/18 History [Pradaxa] Donepezil HCl [Donepezil HCl Odt] 5 mg PO HS 08/26/18 History Folic Acid [Folate*] 1 mg PO DAILY 08/26/18 History Furosemide [Lasix] 20 mg PO BID 08/26/18 History Insulin Glargine,Hum.rec.anlog 40 unit SUBQ HS 08/26/18 History [Lantus Solostar] Insulin Human Regular [NovoLIN R] See Protocol SUBQ ACHS 08/26/18 History Lactobacillus Acidophilus 1 each PO DAILY 08/26/18 History [Acidophilus Lactobacilli] Levothyroxine [Synthroid] 0.1375 mg PO QDAC 08/26/18 History Megestrol Acetate [Megace Es] 400 mg PO BIDAC 08/26/18 History Multivitamin w/ Minerals 1 tab PO DAILY 08/26/18 History [Theragran M] Tamsulosin [Flomax] 0.4 mg PO HS 08/26/18 History metFORMIN [Glucophage] 500 mg PO BID 08/26/18 History - Allergies Allergies/Adverse Reactions: Allergies Allergy/AdvReac Type Severity Reaction Status Date / Time doxycycline Allergy Verified 08/26/18 17:41 nalbuphine Allergy Verified 08/26/18 17:41 Review of Systems - Review of Systems Constitutional: Report: Weakness Eyes: Report: No Significant ENT: Report: No Significant Respiratory: Report: No Significant Cardiovascular: Report: No Significant Gastrointestinal: Report: No Significant Genitourinary: Report: No Significant Musculoskeletal: Report: No Significant Skin: Report: No Significant Neurological: Report: Weakness, Other (Patient is confused not responding verbal commands. ) Physical Exam - Physical Exam HEENT: Report: Ears Nose Throat within normal limits Neck: Report: Within normal limits Cardiovascular Systems: Report: Regular, Rate and Rhythm Respiratory: Report: Breath Sounds are within normal limits Abdomen: Report: Non-tender to palpation Back: Report: Inspection of back is within normal limits. Extremities: Report: Other (BK amputation of right leg) Skin: Report: Skin Rash noted Neuro/Psych: Report: Other (Patient is obtunded, responding to pain. ) - Lab Results All Lab Results last 24 hours: Laboratory Results - last 24 hr 08/26/18 08/26/18 08/26/18 17:35 17:35 17:35 WBC 9.4 RBC 3.11 L Hgb 9.7 L Hct 29.0 L MCV 93.5 MCH 31.3 H MCHC Differential 33.4 RDW 13.7 Plt Count 256 MPV 8.6 Add Manual Diff Neutrophils % 89.1 H Band Neutrophils % Lymphocytes % 6.8 L Monocytes % 3.6 Eosinophils % 0.4 Basophils % 0.1 Neutrophils (Manual) Lymphocytes Monocytes Eosinophils Basophils PT INR Sodium 158 H D Potassium 2.4 L* Chloride 132 H Carbon Dioxide 15.0 L Anion Gap 13.4 BUN 70 H Creatinine 2.6 H Est GFR ( Amer) TNP Est GFR (Non-Af Amer) TNP BUN/Creatinine Ratio 26.9 Glucose 107 H POC Glucose Calcium 8.6 Phosphorus 2.3 L Magnesium 2.0 Total Bilirubin 0.4 AST 26 ALT 28 Alkaline Phosphatase 58 B-Natriuretic Peptide Total Protein 7.5 Albumin 2.3 L Globulin 5.2 Albumin/Globulin Ratio 0.4 L TSH 16.45 H 08/26/18 08/26/18 08/26/18 17:35 17:35 18:34 WBC RBC Hgb Hct MCV MCH MCHC Differential RDW Plt Count MPV Add Manual Diff Neutrophils % Band Neutrophils % Lymphocytes % Monocytes % Eosinophils % Basophils % Neutrophils (Manual) Lymphocytes Monocytes Eosinophils Basophils PT 11.8 H INR 1.14 Sodium Potassium Chloride Carbon Dioxide Anion Gap BUN Creatinine Est GFR ( Amer) Est GFR (Non-Af Amer) BUN/Creatinine Ratio Glucose POC Glucose 94 Calcium Phosphorus Magnesium Total Bilirubin AST ALT Alkaline Phosphatase B-Natriuretic Peptide 385.0 H Total Protein Albumin Globulin Albumin/Globulin Ratio TSH 08/27/18 08/27/18 08/27/18 00:04 04:39 04:39 WBC 9.8 RBC 3.02 L Hgb 9.5 L Hct 28.0 L MCV 92.9 MCH 31.6 H MCHC Differential 34.0 RDW 14.3 Plt Count 239 MPV 8.7 Add Manual Diff YES Neutrophils % Band Neutrophils % 0 Lymphocytes % Monocytes % Eosinophils % Basophils % Neutrophils (Manual) 90 H Lymphocytes 6 L Monocytes 3 Eosinophils 1 Basophils 0 PT INR Sodium 160 H* Potassium 2.8 L* Chloride 133 H Carbon Dioxide 14.8 L Anion Gap 15.0 BUN 69 H Creatinine 2.6 H Est GFR ( Amer) TNP Est GFR (Non-Af Amer) TNP BUN/Creatinine Ratio 26.5 Glucose POC Glucose 172 H Calcium 8.4 L Phosphorus Magnesium Total Bilirubin 0.4 AST 18 ALT 23 Alkaline Phosphatase 54 B-Natriuretic Peptide Total Protein 7.1 Albumin 2.2 L Globulin 4.9 Albumin/Globulin Ratio 0.5 L TSH 08/27/18 08/27/18 04:39 06:22 WBC RBC Hgb Hct MCV MCH MCHC Differential RDW Plt Count MPV Add Manual Diff Neutrophils % Band Neutrophils % Lymphocytes % Monocytes % Eosinophils % Basophils % Neutrophils (Manual) Lymphocytes Monocytes Eosinophils Basophils PT 11.6 H INR 1.13 Sodium Potassium Chloride Carbon Dioxide Anion Gap BUN Creatinine Est GFR ( Amer) Est GFR (Non-Af Amer) BUN/Creatinine Ratio Glucose POC Glucose 227 H Calcium Phosphorus Magnesium Total Bilirubin AST ALT Alkaline Phosphatase B-Natriuretic Peptide Total Protein Albumin Globulin Albumin/Globulin Ratio TSH - Assessment Assessment: Patient is obtunded, responding to pain. Dx: Failure to thrive, Hypernatremia, Hypokalemia, DM, HTN, Hypothyroidism, CKD, CHF, Anemia, Dementia, S/P BK amputation. - Plan Plan: Case was discussed with family and they understood the general condition of the patient. He is in IV D5, meds are hold until G-Tube is placed. Possible G-tube placement today, consult with Cardio and nephro requested.
[2018-08-27] MEDS ORDERED: Potassium Chloride 40 MEQ, Lidocaine 1% 20mL Vial 25 MG in Sodium Chloride 0.9% 250 ML IV ONE (09:00)
--- NOTE | 2018-08-27 09:13 | Diagnostic Imaging Report ---
CHEST X-RAY: AP view INDICATION: Failure to thrive, abnormal breath sounds COMPARISON: 07/17/2018 FINDINGS: Skinfolds are seen along the right hemithorax. Chronic lung changes are noted. There is evidence of prior median sternotomy. There is no focal consolidation or pleural effusions The heart is normal in size. Degenerative changes of the spine are noted. IMPRESSION: Chronic lung changes with no focal consolidation identified Evidence of prior median sternotomy.
[2018-08-27] MEDS: Lactobacillus Rhamnosus GG 15 Billion CFU CAP.SPRINK PO SCH (09:43)
[2018-08-27 14:12] LABS: GLUCOSE 252 mg/dL (70-105)
--- NOTE | 2018-08-28 01:18 | Consultation ---
DATE OF CONSULTATION: 08/27/2018 ATTENDING: Dr. Carlos Jackson. REGIONAL CLINICAL RESEARCH ASSOCIATE: Dr. Amaury Palmer. REASON FOR CONSULTATION: Acute kidney injury, electrolyte imbalance and fluid management. HISTORY OF PRESENT ILLNESS: This is an 87-year-old male with past medical history of Alzheimer's dementia, who came in because of very poor oral intake. One week prior to admission, the patient was admitted at [facility] because of poor oral intake, which resulted in severe dehydration. He had a gastrostomy tube prior to this, but was accidentally pulled out. He was aggressively hydrated. However, family wanted only comfort care and decided for hospice. Thus, a G-tube was not placed. A few days prior to admission, he continued to have poor oral intake. He then became very weak. He was then brought to the Emergency Room. His sodium at [facility] was 158. His BUN/creatinine at [facility] were 225/6.56. He was hydrated aggressively. He was discharged with a BUN/creatinine of 157/4.17. He was admitted at [facility] with a BUN/creatinine of 7/2.6 and sodium of 158. His BUN/creatinine today were 69/2.6 and sodium of 160. He had no history of nausea and vomiting as well as diarrhea. PAST MEDICAL HISTORY: 1. Acute kidney injury. 2. Electrolyte imbalance. 3. Dehydration. 4. Alzheimer dementia. 5. Severe malnutrition. 6. Type 2 diabetes mellitus. 7. Peripheral arterial disease. 8. Coronary artery disease. 9. Essential hypertension. 10. Hypothyroidism. PAST SURGICAL HISTORY: 1. Status post right below-knee amputation. 2. Status post CABG. CURRENT MEDICATIONS: He is currently on cefazolin, ascorbic acid, D5W, donepezil, furosemide, aspart, levothyroxine, megestrol acetate, potassium chloride, tamsulosin, and Zosyn. ALLERGIES: ALLERGIC TO DOXYCYCLINE AND NALBUPHINE. SOCIAL AND FAMILY HISTORY: I was not able to obtain directly from the patient because the patient is nonverbal at the present time. REVIEW OF SYSTEMS: Again, I was not able to decipher from the patient because of the same reason. PHYSICAL EXAMINATION: GENERAL: The patient is drowsy, but comfortable, chronically ill looking, cachectic. VITAL SIGNS: Blood pressure is 115/42, pulse 64, temperature 96.8 degrees. SKIN: Poor turgor, warm, no rash, no jaundice appreciated. HEENT: Head normocephalic, atraumatic. Eyes: Extraocular muscles intact. Pupils equal, round, reactive to light and accommodates. Anicteric sclerae. Pale conjunctivae. Nose, midline nasal septum. Mouth: Dry mucosa, poor dentition. NECK: Supple, no adenopathy, no thyromegaly, no bruits. Trachea palpated in the midline. CHEST AND CARDIOVASCULAR: S1, S2. No rub, murmur nor gallop appreciated. Point of maximal impulse fifth intercostal space, left midclavicular line. No abdominal or femoral bruits appreciated. LUNGS: Equal expansion. No use of accessory muscles. No supraclavicular retractions. Decreased breath sounds, clear to auscultation without any wheeze. ABDOMEN: Scaphoid, soft. Positive for bowel sounds. No bruits either diastolic or systolic. RECTAL: Deferred. GENITOURINARY: Normal appearing male genitalia. MUSCULOSKELETAL: No effusions present in his joints, but unable to assess his range of motion. EXTREMITIES: No evidence of left lower extremity edema. No evidence of upper extremity edema. NEURO: The patient is drowsy at the present time, so he was not able to follow my neuro commands and I was not able to pursue further my neuro exam. LABORATORY DATA: Labs did reveal white count 9.8, hemoglobin 9.5, hematocrit 28, platelets 239, polys 90%. Sodium 160, potassium 2.8, chloride 133, bicarbonate 14.8, BUN 69, creatinine 2.9, glucose 173, calcium 8.4, phosphorus 2.3, magnesium 2. BNP 385. IMPRESSION: 1. Acute kidney injury. The patient has a history of very poor oral intake after his G-tube was pulled out. Thus, he was not able to replenish his sensible and insensible fluid losses. This was supported by poor skin turgor and dry oral mucosa on exam. He is also on furosemide, which have probably worsened his dehydration. His prerenal azotemia eventually progressed to acute tubular injury. 2. Very poor oral intake suggestive of failure to thrive. 3. Hypernatremia secondary to dehydration, hypovolemia. 4. Hypokalemia secondary to administration of Lasix. 5. Pure anion gap metabolic acidosis secondary to uremia, metformin as well as starvation with formation of ketones 6. Anemia of chronic disease. 7. Severe malnutrition. 8. Alzheimer's dementia. 9. Type 2 diabetes mellitus. 10. Peripheral arterial disease, status post right BKA. 11. Coronary artery disease, status post coronary artery bypass graft. 12. Essential hypertension. 13. Hypothyroidism. PLAN: 1. Continue with IV hydration. 2. Urinalysis. 3. Urine spot sodium, eosinophils, and creatinine. 4. Renal ultrasound. 5. Urine microalbumin to creatinine ratio. 6. Increase levothyroxine. 7. Discontinue Lasix for now. Thank you, Dr. Jackson, for this consult. We will follow the patient closely with you. JOB# [id number]
[2018-08-28] MEDS: Dextrose 5% 1,000 ML IV SCH ×2 (01:29→15:31)
--- NOTE | 2018-08-28 01:56 | Consultation ---
DATE OF CONSULTATION: 08/27/[address] Jackson. HISTORY OF PRESENT ILLNESS: This is an 87-year-old male patient who was brought in from SNF as the patient stopped eating. The patient has been discussed with the family for possible PEG placement, hence, cardiac consult is requested for preop clearance. PAST MEDICAL HISTORY: Hypertension, diabetes mellitus type 2, coronary artery bypass, stable angina, dementia, hypothyroid, right BKA and BPH. FAMILY HISTORY: Unremarkable. SOCIAL HISTORY: No history of smoking, alcohol abuse. ALLERGIES: No known allergies. PHYSICAL EXAMINATION: VITAL SIGNS: Blood pressure 130/80, pulse 70 and respirations 20. HEAD: Normocephalic. No lumps or bumps. EYES: Pupils equal, reactive to light. Fundi show AV nicking, sclerae white, conjunctivae pink. NECK: Carotid 2+. Normal upstroke. JVD flat. Thyroid not palpable. Lymph nodes not palpable. CHEST: Shows increased AP diameter. No kyphosis or scoliosis. LUNGS: Bilateral bronchovesicular breath sounds. HEART: PMI fifth intercostal space with lateral to midclavicular line. S1, S2, S3, S4, soft systolic murmur. ABDOMEN: Soft. Liver, spleen not palpable. No organomegaly. Bowel sounds active. NEUROLOGIC: No focal neurological deficit. EXTREMITIES: Peripheral pulses 2+. No pedal edema. CLINICAL IMPRESSION: Dysphagia, recommend PEG placement; hypokalemia; hyponatremia; hypertension; diabetes mellitus type 2; coronary artery bypass; stable angina; dementia; hypothyroid; right below-knee amputation and benign prostatic hypertrophy. PLAN: The patient to change IV fluids to D5W. Get potassium supplement and also, the patient is cleared for surgery when electrolytes are normal. JOB# [id number]
--- NOTE | 2018-08-28 04:24 | Consultation ---
DATE OF CONSULTATION: TYPE OF CONSULTATION: GASTROENTEROLOGY REQUESTING PHYSICIAN: Carlos Jackson M.D. REASON FOR CONSULTATION: Dysphagia. HISTORY OF PRESENT ILLNESS: An 87-year-old male with a history of dementia, peripheral vascular disease, status post right below the knee amputation, coronary artery disease, CHF, hypertension and possible schizophrenia versus psychosis, admitted for failure to thrive and not eating for the past 2 to 3 days. He lives in a nursing facility. We were asked to see the patient for G-tube insertion. He had a G-tube inserted in the past, but was removed after started eating better. PAST MEDICAL HISTORY: As above, also notable for diabetes mellitus and hypothyroidism, rash, muscle atrophy, weakness. ALLERGIES: DOXYCYCLINE and NALBUPHINE. SOCIAL HISTORY: No recent tobacco, alcohol or drugs. half-way resident. FAMILY HISTORY: Noncontributory. MEDICATIONS: Tylenol, vitamin C, D5 water, Aricept, folate, Lasix, insulin sliding scale, Culturelle, Synthroid, Megace, IV fluids with potassium and Flomax. REVIEW OF SYSTEMS: Negative. PHYSICAL EXAMINATION: VITAL SIGNS: Temperature of 97.0, blood pressure is 136/50, pulse of 87, respirations 17, and O2 sat 100%. GENERAL: The patient is well-developed, chronically ill-appearing male who is in no acute distress. HEENT: Sclerae nonicteric. Oropharynx is clear. CARDIOVASCULAR: Regular rate and rhythm. LUNGS: Clear to auscultation bilaterally. ABDOMEN: Soft, nontender, nondistended. EXTREMITIES: No clubbing, cyanosis or edema. RECTAL: Deferred. LABORATORY/IMAGING DATA: WBC 9.8, hemoglobin 9.5, platelet count is 239. INR is 1.1. Sodium 160, potassium 2.8, creatinine 2.6, albumin 2.2. IMPRESSION: 1. Dysphagia likely from central etiology from dementia. 2. Dehydration with hypernatremia. 3. Hypokalemia. 4. Diabetes mellitus. 5. Hypothyroidism. RECOMMENDATIONS: 1. G-tube insertion via upper endoscopy tomorrow, pending consent from family. I have talked to the daughter at the bedside and she is agreeable. Informed consent had been obtained. 2. Correction of hypernatremia and hypokalemia as per hospitalist. 3. IV fluids in the meantime. 4. Antibiotic prophylaxis. Thank you, Dr. Carlos Jackson for involving us in the care of your patient. If you have any further questions, please call us. [facility]# [id number]
[2018-08-28 05:25] LABS: % BASOPHILS 0.1 % (0.0-2.0); % EOSINOPHILS 1.4 % (0.0-5.0); % LYMPHOCYTES 9.1 % (20.0-50.0); % MONOCYTES 3.9 % (2.0-10.0); % NEUTROPHILS 85.5 % (40.0-80.0); EOSINOPHILE ABSOLUTE 0.1 Th/cmm (0.1-0.4); HEMATOCRIT 26.9 % (41.0-60); HEMOGLOBIN 8.8 gm/dL (12-16); LYMPHOCYTE ABSOLUTE 0.7 Th/cmm (1.5-3.0); MEAN CELL VOLUME 94.1 fl (80-99); MEAN CORPUSCULAR HEMOGLOBIN 30.6 pg (27.0-31.0); MEAN CORPUSCULAR HGB CONC 32.6 pg (28.0-36.0); MEAN PLATELET VOLUME 8.7 fl; MONOCYTE ABSOLUTE 0.3 Th/cmm (0.3-1.0); NEUTROPHILE ABSOLUTE 6.4 Th/cmm (1.8-8.0); PLATELET COUNT 237 Th/cmm (150-400); RED BLOOD COUNT 2.86 Mil/cmm (3.80-5.80); RED CELL DISTRIBUTION WIDTH 14.3 % (11.5-20.0); WHITE BLOOD COUNT 7.5 Th/cmm (4.8-10.8)
[2018-08-28 05:28] LABS: INR 1.02 (0.5-1.4); PROTHROMBIN TIME (TEST) 10.6 SECONDS (9.5-11.5)
[2018-08-28 05:35] LABS: URINE SOURCE MIDSTREAM
[2018-08-28] MEDS ORDERED: ceFAZolin 1 GM in Sodium Chloride 0.9% 50 ML IV ONE (06:30)
[2018-08-28 06:39] LABS: URINE BILIRUBIN NEGATIVE (NEGATIVE); URINE BLOOD NEGATIVE (NEGATIVE); URINE GLUCOSE (UA) NEGATIVE (NEGATIVE); URINE KETONE NEGATIVE (NEGATIVE); URINE LEUKOCYTE ESTERASE NEGATIVE (NEGATIVE); URINE MICROSCOPIC INDICATED? YES; URINE NITRATE NEGATIVE (NEGATIVE); URINE PROTEIN TRACE mg/dL (NEGATIVE); URINE UROBILINOGEN 0.2 E.U./dL (0.2 - 1.0)
[2018-08-28 06:40] LABS: URINE COLOR YELLOW
[2018-08-28] MEDS ORDERED: Lidocaine 2% Gel 5 mL TP ONE (06:40)
[2018-08-28] MEDS ORDERED: Propofol 10 mg/mL 20mL Vial **SURGERY USE ONLY IV ONE (06:40)
[2018-08-28 06:44] LABS: URINE CLARITY HAZY (CLEAR)
[2018-08-28 06:46] LABS: URINE EPITHELIAL CELLS OCCASIONAL /lpf (FEW); URINE RBC 0-2 /hpf (0-5); URINE WBC 0-2 /hpf (0-5)
[2018-08-28 06:47] LABS: URINE AMORPHOUS SEDIMENT FEW URATES (NONE SEEN); URINE BACTERIA NONE SEEN /hpf (NONE SEEN)
[2018-08-28 07:22] LABS: ALB/GLOB RATIO 0.4 (1.0-1.8); ALKALINE PHOSPHATASE 48 U/L (34-104); ANION GAP 13.4 (7.0-16.0); BILIRUBIN,TOTAL 0.3 mg/dL (0.3-1.0); BUN - UREA NITROGEN 60 mg/dL (7-25); CALCIUM SERUM 8.4 mg/dL (8.6-10.3); CARBON DIOXIDE 13.7 mEq/L (21.0-31.0); CREATININE - SERUM 2.3 mg/dL (0.7-1.3); GLUCOSE 251 mg/dL (70-105); MAGNESIUM 1.9 mg/dL (1.9-2.7); PHOSPHOROUS 2.9 mg/dL (2.5-5.0); POTASSIUM SERUM 3.1 mEq/L (3.5-5.1); SGOT 14 U/L (13-39); SGPT/ALT 18 U/L (7-52); SODIUM SERUM 157 mEq/L (136-145); TOTAL PROTEIN,SERUM 6.7 gm/dL (6.0-8.3); URIC ACID 8.2 mg/dL (4.4-7.6)
[2018-08-28] MEDS: INSULIN ASPART SLIDING SCALE 100 UNITS/ML UNIT SUBQ SCH ×4 (07:22→20:22)
[2018-08-28] MEDS ORDERED: Levothyroxine 0.025 Mg Tab PO SCH (07:30)
[2018-08-28 07:36] LABS: CHLORIDE 133 mEq/L (98-107)
[2018-08-28 08:10] LABS: EOSINOPHIL SMEAR SOURCE URINE; EOSINOPHILS SMEAR COUNT NONE SEEN (NONE SEEN)
--- NOTE | 2018-08-28 08:30 | Diagnostic Imaging Report ---
Renal ultrasound HISTORY: Acute renal failure. COMPARISON: None Technique: Sonography of the kidneys and urinary bladder was performed in multiple planes. FINDINGS: The right kidney measures 8.9 x 4.6 cm. No evidence of focal lesions or hydronephrosis. The left kidney measures 9.7 x 5.4 cm. No evidence of focal lesions or hydronephrosis. There is increased echogenicity of the kidneys. Patient was unable to void. Distended urinary bladder is noted with volume of 423 ml. No definite urinary bladder wall thickening. The prostate gland is mildly prominent measuring 4.9 x 3.4 x 3.9 cm and demonstrates a mildly heterogeneous echotexture. IMPRESSION: No evidence of hydronephrosis. Increased echogenicity of the kidneys which may be due to underlying medical renal disease Distended urinary bladder. Patient was unable to void during the exam Mildly prominent heterogeneous prostate gland, please correlate clinically.
[2018-08-28] MEDS: Lactobacillus Rhamnosus GG 15 Billion CFU CAP.SPRINK PO SCH (08:43)
--- NOTE | 2018-08-28 09:26 | Operative Report ---
DATE OF SURGERY: 08/28/2018 PROCEDURE: Esophagogastroduodenoscopy with G-tube insertion. PREOPERATIVE DIAGNOSIS: Dysphagia. POSTOPERATIVE DIAGNOSES: 1. Poor oral care. 2. Mild distal esophageal Schatzki's ring. 3. Status post successful G-tube insertion via pull technique. INDICATIONS: An 87-year-old male with dementia, undergoing an upper endoscopy for G-tube insertion for long-term nutritional purposes and medication delivery. CONSENT: Informed consent was obtained from the patient's family and daughter prior to the procedure after detailed explanation of risks, benefits and alternatives including, but not limited to infection, bleeding, perforation and . SEDATION: Monitored anesthesia care per Dr. Miller DESCRIPTION OF PROCEDURE AND FINDINGS: The procedure took place as an inpatient in the GI suite of [facility]. The patient was kept in a supine position with head of bed slightly elevated. Adequate sedation was achieved. An Olympus diagnostic upper endoscope was advanced via the patient's mouth and into the oropharynx. Here, there was poor oral care identified. Under direct visualization, the esophagus is intubated. There was a mild nonobstructing Schatzki's ring identified distally. The scope was able to traverse this area with minimal resistance. The Z line was at approximately 40 cm from the gums. Retroflexion in the stomach revealed no GE junction mass or varices. No hiatal hernia was identified. The rest of the stomach, pyloric channel and duodenum up to second portion appeared normal. With the scope in the stomach, air was insufflated and an area in the epigastric skin that corresponded with the old G-tube insertion site was identified. This area and the skin was then prepped and draped using sterile technique and anesthetized with 5 mL of 1% lidocaine. A scalpel blade was used to make a 1 cm incision in the skin. This was followed by trocar needle insertion through the skin incision with tip noted endoscopically in the stomach. A guidewire was then inserted via the trocar needle and grasped by a snare device. That had been advanced via the working channel of the endoscope. The scope along with the snare device holding onto the guidewire were then pulled out to get the patient's mouth. A 20-Thai G-tube was attached to guidewire and then via pull technique, pulled across the abdominal wall of the patient. The outer bumper was placed at the 4 cm scotty. Overlying dressing was placed. The tube was noted to be in good position. The patient tolerated the procedure well, no complications are anticipated. RECOMMENDATIONS: 1. May use G-tube for water flushes and medications today and start feedings later on today. 2. G-tube care. 3. Oral care. Thank you, Dr. Carlos Jackson for involving us in the care of your patient. If you have any further questions, please call us. JOB# [id number] MTDD
[2018-08-28] MEDS ORDERED: KCL 20mEq/100mL Premix 20 MEQ/100 ML PIGGYBACK IV ONE (10:00)
--- NOTE | 2018-08-28 10:01 | General Progress Note ---
Subjective - Review of Systems Service Date: 08/28/18 Subjective: Patient obtunded, non responding to verbal commands Objective - Results Result Diagrams: 08/28/18 04:00 08/28/18 04:00 Recent Labs: Laboratory Last Values WBC 7.5 Th/cmm (4.8-10.8) 08/28/18 04:00 RBC 2.86 Mil/cmm (3.80-5.80) L 08/28/18 04:00 Hgb 8.8 gm/dL (12-16) L 08/28/18 04:00 Hct 26.9 % (41.0-60) L 08/28/18 04:00 MCV 94.1 fl (80-99) 08/28/18 04:00 MCH 30.6 pg (27.0-31.0) 08/28/18 04:00 MCHC Differential 32.6 pg (28.0-36.0) 08/28/18 04:00 RDW 14.3 % (11.5-20.0) 08/28/18 04:00 Plt Count 237 Th/cmm (150-400) 08/28/18 04:00 MPV 8.7 fl 08/28/18 04:00 Add Manual Diff YES 08/27/18 04:39 Neutrophils % 85.5 % (40.0-80.0) H 08/28/18 04:00 Band Neutrophils % 0 % (0-10) 08/27/18 04:39 Lymphocytes % 9.1 % (20.0-50.0) L 08/28/18 04:00 Monocytes % 3.9 % (2.0-10.0) 08/28/18 04:00 Eosinophils % 1.4 % (0.0-5.0) 08/28/18 04:00 Basophils % 0.1 % (0.0-2.0) 08/28/18 04:00 Neutrophils (Manual) 90 % (40-80) H 08/27/18 04:39 Lymphocytes 6 % (20-50) L 08/27/18 04:39 Monocytes 3 % (2-10) 08/27/18 04:39 Eosinophils 1 % (0-5) 08/27/18 04:39 Basophils 0 % (0-3) 08/27/18 04:39 Eos Smear Source URINE 08/28/18 05:30 Eos Smear Total Cells NONE SEEN (NONE SEEN) 08/28/18 05:30 PT 10.6 SECONDS (9.5-11.5) 08/28/18 04:00 INR 1.02 (0.5-1.4) 08/28/18 04:00 PTT (Actin FS) 26.4 SECONDS (26.0-38.0) 08/28/18 04:00 Sodium 157 mEq/L (136-145) H 08/28/18 04:00 Potassium 3.1 mEq/L (3.5-5.1) L 08/28/18 04:00 Chloride 133 mEq/L (98-107) H 08/28/18 04:00 Carbon Dioxide 13.7 mEq/L (21.0-31.0) L 08/28/18 04:00 Anion Gap 13.4 (7.0-16.0) 08/28/18 04:00 BUN 60 mg/dL (7-25) H 08/28/18 04:00 Creatinine 2.3 mg/dL (0.7-1.3) H 08/28/18 04:00 Est GFR ( Amer) TNP 08/28/18 04:00 Est GFR (Non-Af Amer) TNP 08/28/18 04:00 BUN/Creatinine Ratio 26.1 08/28/18 04:00 Glucose 251 mg/dL (70-105) H 08/28/18 04:00 POC Glucose 243 MG/DL (70 - 105) H 08/28/18 06:40 Uric Acid 8.2 mg/dL (4.4-7.6) H 08/28/18 04:00 Calcium 8.4 mg/dL (8.6-10.3) L 08/28/18 04:00 Phosphorus 2.9 mg/dL (2.5-5.0) 08/28/18 04:00 Magnesium 1.9 mg/dL (1.9-2.7) 08/28/18 04:00 Total Bilirubin 0.3 mg/dL (0.3-1.0) 08/28/18 04:00 AST 14 U/L (13-39) 08/28/18 04:00 ALT 18 U/L (7-52) 08/28/18 04:00 Alkaline Phosphatase 48 U/L (34-104) 08/28/18 04:00 B-Natriuretic Peptide 385.0 pg/mL (5.0-100.0) H 08/26/18 17:35 Total Protein 6.7 gm/dL (6.0-8.3) 08/28/18 04:00 Albumin 2.0 gm/dL (4.2-5.5) L 08/28/18 04:00 Globulin 4.7 gm/dL 08/28/18 04:00 Albumin/Globulin Ratio 0.4 (1.0-1.8) L 08/28/18 04:00 TSH 16.45 uIU/ml (0.34-5.60) H 08/26/18 17:35 Urine Source MIDSTREAM 08/28/18 05:30 Urine Color YELLOW 08/28/18 05:30 Urine Clarity HAZY (CLEAR) 08/28/18 05:30 Urine pH 5.0 (4.6 - 8.0) 08/28/18 05:30 Ur Specific [place] 1.025 (1.005-1.030) 08/28/18 05:30 Urine Protein TRACE mg/dL (NEGATIVE) 08/28/18 05:30 Urine Glucose (UA) NEGATIVE mg/dL (NEGATIVE) 08/28/18 05:30 Urine Ketones NEGATIVE mg/dL (NEGATIVE) 08/28/18 05:30 Urine Blood NEGATIVE (NEGATIVE) 08/28/18 05:30 Urine Nitrate NEGATIVE (NEGATIVE) 08/28/18 05:30 Urine Bilirubin NEGATIVE (NEGATIVE) 08/28/18 05:30 Urine Urobilinogen 0.2 E.U./dL (0.2 - 1.0) 08/28/18 05:30 Ur Leukocyte Esterase NEGATIVE (NEGATIVE) 08/28/18 05:30 Urine RBC 0-2 /hpf (0-5) H 08/28/18 05:30 Urine WBC 0-2 /hpf (0-5) 08/28/18 05:30 Ur Epithelial Cells OCCASIONAL /lpf (FEW) 08/28/18 05:30 Amorphous Sediment FEW URATES (NONE SEEN) 08/28/18 05:30 Urine Bacteria NONE SEEN /hpf (NONE SEEN) 08/28/18 05:30 Ur Random Sodium 53 mmol/L 08/28/18 05:30 Urine Creatinine 74.0 mg/dl (39.0-259.0) 08/28/18 05:30 - Physical Exam Vitals and I&O: Vital Signs Temp 96 F 08/28/18 08:00 Pulse 70 08/28/18 08:00 Resp 16 08/28/18 08:00 BP 133/62 08/28/18 08:00 Pulse Ox 97 08/28/18 08:00 Intake & Output 08/27/18 08/28/18 08/28/18 18:59 06:59 18:59 Intake Total 50 Output Total 325 Balance 50 -325 Weight (lbs) 60.781 kg 60.872 kg Intake: Intake, IV Amount 50 ceFAZolin 1 gm In Sodium 50 Chloride 0.9% 50 ml @ 100 mls/hr IV X1 ONE Rx#: [id number] Output: Urine 325 Other: # Voids 4 # Bowel Movements 0 0 Weight Source Bedscale Bedscale Active Medications: Current Medications Acetaminophen (Tylenol) 650 mg PO Q6HR PRN PRN Reason: Pain Or Fever >100F Stop: 10/26/18 08:37 Ascorbic Acid (Vitamin C) 500 mg PO DAILY [facility] Stop: 10/26/18 08:59 Last Admin: 08/28/18 08:43 Dose: 500 mg Donepezil HCl (Aricept) 5 mg PO HS [facility] Stop: 10/26/18 20:59 Last Admin: 08/27/18 20:46 Dose: Not Given Folic Acid (Folate) 1 mg PO DAILY [facility] Stop: 10/26/18 08:59 Last Admin: 08/28/18 08:43 Dose: 1 mg Dextrose (D5w) 1,000 mls @ 100 mls/hr IV .Q10H [facility] Stop: 10/26/18 14:29 Last Admin: 08/28/18 01:29 Dose: 100 mls/hr Potassium Chloride (Potassium Chloride) 20 meq in 100 mls @ 50 mls/hr IV X1 ONE Stop: 08/28/18 11:59 Last Admin: 08/28/18 09:55 Dose: 50 mls/hr Insulin Aspart (Novolog Insulin Sliding Scale) 0 units SUBQ ACHS [facility]; Protocol Stop: 10/26/18 07:29 Last Admin: 08/28/18 07:22 Dose: Not Given Lactobacillus Rhamnosus (Culturelle 15b) 1 each PO DAILY [facility] Stop: 10/26/18 08:59 Last Admin: 08/28/18 08:43 Dose: 1 each Levothyroxine Sodium 0.112 mg/ (Levothyroxine Sodium 0.025 mg) 0.137 mg PO QDAC [facility] Stop: 10/27/18 07:29 Last Admin: 08/28/18 07:00 Dose: Not Given Megestrol Acetate (Megace) 400 mg PO BIDAC [facility] Stop: 10/26/18 16:29 Last Admin: 08/28/18 07:00 Dose: Not Given Tamsulosin HCl (Flomax) 0.4 mg PO HS [facility] Stop: 10/26/18 20:59 Last Admin: 08/27/18 20:47 Dose: Not Given General: Other (Obtunded, non responding to verbal commands) HEENT: Atraumatic Neck: Supple Cardiovascular: Regular rate Lungs: Clear to auscultation Abdomen: Bowel sounds, Soft, Other (G-tube in place) Extremities: Other (No edema) Neurological: Other (Non ambulatory) Skin: Other (Warm and dry) Psych/Mental Status: Other (Patient is obtunded non following verbal commands, responding to pain. ) - Procedures Procedures: Procedures Procedure Code Date DETACHMENT AT RIGHT LOWER LEG, HIGH, OPEN APPROACH [id number] 07/14/18 OTHER GROUP THERAPY 94.44 04/17/13 Assessment/Plan - Assessment Assessment: Patient is obtunded, responding to pain. Dx: Failure to thrive, Hypernatremia, Hypokalemia, DM, HTN, Hypothyroidism, CKD, CHF, Anemia, Dementia, S/P BK amputation. - Plan Plan: Na decreasing, K increasing, G-tube in place, feeding will start today. . He is in IV D5, Patient follow by Cardio and nephro. Will continue to monitor. Nutritional Asmnt/Malnutr-PDOC - Dietary Evaluation Malnutrition Findings (Please click <Entered> for more info): Nutritional Asmnt/Malnutrition Start: 08/27/18 14: 19 Text: Status: Complete Freq: Protocol: Document 08/27/18 14:19 WILLIAM (Rec: 08/27/18 15:33 WILLIAM [email or web address]) Nutritional Asmnt/Malnutrition Patient General Information Nutritional Screening High Risk Diagnosis FTT, G Tube replacement Pertinent Medical Hx/Surgical Hx CAD, CHF, HTN, dementia, schizophrenia, muscle atrophy, weakness, s/p right BKA, chronic renal insufficiency, DM, hypothyroidism, cellulitis Subjective Information Pt sleeping at time of visit. Per MD note, pt has not eaten in 2-3 days. Spoke to RN Artemio who confirms that pt has not been eating per pt's family and states pt will be NPO after midnight for Gtube placement tomorrow, and pt had hx of Gtube few years ago. RN states pt did not eat today. Current Diet Order/ Nutrition Support CCHO 60 gm, pureed Pertinent Medications Vit C, dextrose, folate, lasix , novolog, culturelle, megace Pertinent Labs 08/27: Na 160, K 2.8, Cl 133, BUN 69, Cr 2.6, Ca 8.4, POC 172-227, Alb 2.2, glucose 252 08/26: Na 158, K 2.4, Cl 132, BUN 70, Cr 2.6, Ca 8.6, POC 94 , Alb 2.3, Phos 2.3, glucose 107 Nutritional Hx/Data Height 1.78 m Height (Calculated Centimeters) 177.8 Current Weight (lbs) 60.963 kg Weight (Calculated Kilograms) 61.0 Weight (Calculated Grams) 69452.8 [place] Body Weight 156 lb (adj wt for right BKA) Body Mass Index (BMI) 19.3 Weight Status Approriate GI Symptoms GI Symptoms None Last BM none noted Difficult in: Swallowing Food Allergies No Skin Integrity/Comment: swelling to right elbow, bruise to left hand, edwar 13 Current %PO Negligible < 25% Estimated Nutritional Goals BEE in Kcals: Using Current wt Calories/Kcals/Kg 25-30 Kcals Calculated 0833-1351 Protein: Using Current wt Protein g/k.7-0.8 Protein Calculated 42-49g (monitor renal labs) Fluid: ml 7617-0934 (1 ml/kcal) Nutritional Problem 2. Problem Problem Altered nutrition related lab values Etiology electrolyte imbalance, renal insufficiency, endocrine dysfunction Signs/Symptoms: Na 160, K 2.8, Cl 133, BUN 69, Cr 2.6, Ca 8.4, POC 172-227, glucose 252 1. Problem Problem Inadequate oral intake Etiology dx of FTT, possible confusion, swallowing problem Signs/Symptoms: no PO intake x 2-3 days per MD note Malnutrition Related to Morbid Obesity Malnutrition related to morbid obesity No Intervention/Recommendation Comments 1. If TF initiated, recommend starting TF with [place] d/t elevated BUN/Cr and renal insufficency. Starting with 2 cans/day to monitor for refeeding syndrome and goal rate is 4 cans/day, which will provide 1700 kcals and 42.4 g protein, meeting 100% kcal needs protein needs. 2. Monitor TF, wt, skin integrity, and nutrition related labs 3. F/U as high risk in 2-3 days, 08/29- Expected Outcomes/Goals Expected Outcomes/Goals 1. PO intake to meet at least 75% of all meals and/or TF with tolerance 2. Wt stability, skin to remain intact, and nutrition related labs to approach normal limits Reviewed by Beatrice Smith RD
--- NOTE | 2018-08-28 13:52 | General Progress Note ---
Subjective - Review of Systems Service Date: 08/28/18 Subjective: sleeping, comfortable Objective - Results Result Diagrams: 08/28/18 04:00 08/28/18 04:00 Recent Labs: Laboratory Last Values WBC 7.5 Th/cmm (4.8-10.8) 08/28/18 04:00 RBC 2.86 Mil/cmm (3.80-5.80) L 08/28/18 04:00 Hgb 8.8 gm/dL (12-16) L 08/28/18 04:00 Hct 26.9 % (41.0-60) L 08/28/18 04:00 MCV 94.1 fl (80-99) 08/28/18 04:00 MCH 30.6 pg (27.0-31.0) 08/28/18 04:00 MCHC Differential 32.6 pg (28.0-36.0) 08/28/18 04:00 RDW 14.3 % (11.5-20.0) 08/28/18 04:00 Plt Count 237 Th/cmm (150-400) 08/28/18 04:00 MPV 8.7 fl 08/28/18 04:00 Add Manual Diff YES 08/27/18 04:39 Neutrophils % 85.5 % (40.0-80.0) H 08/28/18 04:00 Band Neutrophils % 0 % (0-10) 08/27/18 04:39 Lymphocytes % 9.1 % (20.0-50.0) L 08/28/18 04:00 Monocytes % 3.9 % (2.0-10.0) 08/28/18 04:00 Eosinophils % 1.4 % (0.0-5.0) 08/28/18 04:00 Basophils % 0.1 % (0.0-2.0) 08/28/18 04:00 Neutrophils (Manual) 90 % (40-80) H 08/27/18 04:39 Lymphocytes 6 % (20-50) L 08/27/18 04:39 Monocytes 3 % (2-10) 08/27/18 04:39 Eosinophils 1 % (0-5) 08/27/18 04:39 Basophils 0 % (0-3) 08/27/18 04:39 Eos Smear Source URINE 08/28/18 05:30 Eos Smear Total Cells NONE SEEN (NONE SEEN) 08/28/18 05:30 PT 10.6 SECONDS (9.5-11.5) 08/28/18 04:00 INR 1.02 (0.5-1.4) 08/28/18 04:00 PTT (Actin FS) 26.4 SECONDS (26.0-38.0) 08/28/18 04:00 Sodium 157 mEq/L (136-145) H 08/28/18 04:00 Potassium 3.1 mEq/L (3.5-5.1) L 08/28/18 04:00 Chloride 133 mEq/L (98-107) H 08/28/18 04:00 Carbon Dioxide 13.7 mEq/L (21.0-31.0) L 08/28/18 04:00 Anion Gap 13.4 (7.0-16.0) 08/28/18 04:00 BUN 60 mg/dL (7-25) H 08/28/18 04:00 Creatinine 2.3 mg/dL (0.7-1.3) H 08/28/18 04:00 Est GFR ( Amer) TNP 08/28/18 04:00 Est GFR (Non-Af Amer) TNP 08/28/18 04:00 BUN/Creatinine Ratio 26.1 08/28/18 04:00 Glucose 251 mg/dL (70-105) H 08/28/18 04:00 POC Glucose 233 MG/DL (70 - 105) H 08/28/18 11:27 Uric Acid 8.2 mg/dL (4.4-7.6) H 08/28/18 04:00 Calcium 8.4 mg/dL (8.6-10.3) L 08/28/18 04:00 Phosphorus 2.9 mg/dL (2.5-5.0) 08/28/18 04:00 Magnesium 1.9 mg/dL (1.9-2.7) 08/28/18 04:00 Total Bilirubin 0.3 mg/dL (0.3-1.0) 08/28/18 04:00 AST 14 U/L (13-39) 08/28/18 04:00 ALT 18 U/L (7-52) 08/28/18 04:00 Alkaline Phosphatase 48 U/L (34-104) 08/28/18 04:00 B-Natriuretic Peptide 385.0 pg/mL (5.0-100.0) H 08/26/18 17:35 Total Protein 6.7 gm/dL (6.0-8.3) 08/28/18 04:00 Albumin 2.0 gm/dL (4.2-5.5) L 08/28/18 04:00 Globulin 4.7 gm/dL 08/28/18 04:00 Albumin/Globulin Ratio 0.4 (1.0-1.8) L 08/28/18 04:00 TSH 16.45 uIU/ml (0.34-5.60) H 08/26/18 17:35 Urine Source MIDSTREAM 08/28/18 05:30 Urine Color YELLOW 08/28/18 05:30 Urine Clarity HAZY (CLEAR) 08/28/18 05:30 Urine pH 5.0 (4.6 - 8.0) 08/28/18 05:30 Ur Specific [place] 1.025 (1.005-1.030) 08/28/18 05:30 Urine Protein TRACE mg/dL (NEGATIVE) 08/28/18 05:30 Urine Glucose (UA) NEGATIVE mg/dL (NEGATIVE) 08/28/18 05:30 Urine Ketones NEGATIVE mg/dL (NEGATIVE) 08/28/18 05:30 Urine Blood NEGATIVE (NEGATIVE) 08/28/18 05:30 Urine Nitrate NEGATIVE (NEGATIVE) 08/28/18 05:30 Urine Bilirubin NEGATIVE (NEGATIVE) 08/28/18 05:30 Urine Urobilinogen 0.2 E.U./dL (0.2 - 1.0) 08/28/18 05:30 Ur Leukocyte Esterase NEGATIVE (NEGATIVE) 08/28/18 05:30 Urine RBC 0-2 /hpf (0-5) H 08/28/18 05:30 Urine WBC 0-2 /hpf (0-5) 08/28/18 05:30 Ur Epithelial Cells OCCASIONAL /lpf (FEW) 08/28/18 05:30 Amorphous Sediment FEW URATES (NONE SEEN) 08/28/18 05:30 Urine Bacteria NONE SEEN /hpf (NONE SEEN) 08/28/18 05:30 Ur Random Sodium 53 mmol/L 08/28/18 05:30 Urine Creatinine 74.0 mg/dl (39.0-259.0) 08/28/18 05:30 - Physical Exam Vitals and I&O: Vital Signs Temp 97.0 F 08/28/18 11:52 Pulse 68 08/28/18 11:52 Resp 18 08/28/18 11:52 BP 137/60 08/28/18 11:52 Pulse Ox 97 08/28/18 11:52 Intake & Output 08/27/18 08/28/18 08/28/18 18:59 06:59 18:59 Intake Total 50 Output Total 325 Balance 50 -325 Weight (lbs) 60.781 kg 60.872 kg Intake: Intake, IV Amount 50 ceFAZolin 1 gm In Sodium 50 Chloride 0.9% 50 ml @ 100 mls/hr IV X1 ONE Rx#: [id number] Output: Urine 325 Other: # Voids 4 # Bowel Movements 0 0 Weight Source Bedscale Bedscale Active Medications: Current Medications Acetaminophen (Tylenol) 650 mg PO Q6HR PRN PRN Reason: Pain Or Fever >100F Stop: 10/26/18 08:37 Ascorbic Acid (Vitamin C) 500 mg PO DAILY [facility] Stop: 10/26/18 08:59 Last Admin: 08/28/18 08:43 Dose: 500 mg Donepezil HCl (Aricept) 5 mg PO HS [facility] Stop: 10/26/18 20:59 Last Admin: 08/27/18 20:46 Dose: Not Given Folic Acid (Folate) 1 mg PO DAILY [facility] Stop: 10/26/18 08:59 Last Admin: 08/28/18 08:43 Dose: 1 mg Dextrose (D5w) 1,000 mls @ 100 mls/hr IV .Q10H [facility] Stop: 10/26/18 14:29 Last Admin: 08/28/18 01:29 Dose: 100 mls/hr Insulin Aspart (Novolog Insulin Sliding Scale) 0 units SUBQ ACHS [facility]; Protocol Stop: 10/26/18 07:29 Last Admin: 08/28/18 11:32 Dose: 4 units Lactobacillus Rhamnosus (Culturelle 15b) 1 each PO DAILY [facility] Stop: 10/26/18 08:59 Last Admin: 08/28/18 08:43 Dose: 1 each Levothyroxine Sodium 0.112 mg/ (Levothyroxine Sodium 0.025 mg) 0.137 mg PO QDAC [facility] Stop: 10/27/18 07:29 Last Admin: 08/28/18 07:00 Dose: Not Given Megestrol Acetate (Megace) 400 mg PO BIDAC [facility] Stop: 10/26/18 16:29 Last Admin: 08/28/18 07:00 Dose: Not Given Tamsulosin HCl (Flomax) 0.4 mg PO HS [facility] Stop: 10/26/18 20:59 Last Admin: 08/27/18 20:47 Dose: Not Given General: No acute distress HEENT: Atraumatic, Mucous membr. moist/pink Neck: Supple, +2 carotid pulse wo bruit Cardiovascular: Regular rate, Normal S1, Normal S2 Lungs: Clear to auscultation Abdomen: Bowel sounds, Soft, Other (G-tube in place, bladder distended) Extremities: Other (No edema), no Edema Neurological: Sensation intact, Other (Non ambulatory) Skin: no Rash Psych/Mental Status: Mood NL, Other (Patient is obtunded non following verbal commands, responding to pain. ) - Procedures Procedures: Procedures Procedure Code Date DETACHMENT AT RIGHT LOWER LEG, HIGH, OPEN APPROACH [id number] 07/14/18 OTHER GROUP THERAPY 94.44 04/17/13 Assessment/Plan - Assessment Assessment: RHONDA FTT Hypernatremia Hypokalemia AG Met Acid Disteneded Bladder - Plan Plan: Lab - Result Diagrams 08/28/18 04:00 08/28/18 04:00 Current Medications Acetaminophen (Tylenol) 650 mg PO Q6HR PRN PRN Reason: Pain Or Fever >100F Stop: 10/26/18 08:37 Ascorbic Acid (Vitamin C) 500 mg PO DAILY [facility] Stop: 10/26/18 08:59 Last Admin: 08/28/18 08:43 Dose: 500 mg Donepezil HCl (Aricept) 5 mg PO HS [facility] Stop: 10/26/18 20:59 Last Admin: 08/27/18 20:46 Dose: Not Given Folic Acid (Folate) 1 mg PO DAILY [facility] Stop: 10/26/18 08:59 Last Admin: 08/28/18 08:43 Dose: 1 mg Dextrose (D5w) 1,000 mls @ 100 mls/hr IV .Q10H [facility] Stop: 10/26/18 14:29 Last Admin: 08/28/18 01:29 Dose: 100 mls/hr Insulin Aspart (Novolog Insulin Sliding Scale) 0 units SUBQ ACHS [facility]; Protocol Stop: 10/26/18 07:29 Last Admin: 08/28/18 11:32 Dose: 4 units Lactobacillus Rhamnosus (Culturelle 15b) 1 each PO DAILY [facility] Stop: 10/26/18 08:59 Last Admin: 08/28/18 08:43 Dose: 1 each Levothyroxine Sodium 0.112 mg/ (Levothyroxine Sodium 0.025 mg) 0.137 mg PO QDAC [facility] Stop: 10/27/18 07:29 Last Admin: 08/28/18 07:00 Dose: Not Given Megestrol Acetate (Megace) 400 mg PO BIDAC [facility] Stop: 10/26/18 16:29 Last Admin: 08/28/18 07:00 Dose: Not Given Tamsulosin HCl (Flomax) 0.4 mg PO HS [facility] Stop: 10/26/18 20:59 Last Admin: 08/27/18 20:47 Dose: Not Given Lab - Result Diagrams 08/28/18 04:00 08/28/18 04:00 Na down to 157 Kidney fnc gradualy improving w/ BUN/CR of 60/2.3 replace K, NaHC03 FENa 1.05% suggestive of intrinsic renal failure continue IVF f/u electrolytes, cbc Nutritional Asmnt/Malnutr-PDOC - Dietary Evaluation Malnutrition Findings (Please click <Entered> for more info): Nutritional Asmnt/Malnutrition Start: 08/27/18 14: 19 Text: Status: Complete Freq: Protocol: Document 08/27/18 14:19 WILLIAM (Rec: 08/27/18 15:33 WILLIAM [email or web address]) Nutritional Asmnt/Malnutrition Patient General Information Nutritional Screening High Risk Diagnosis FTT, G Tube replacement Pertinent Medical Hx/Surgical Hx CAD, CHF, HTN, dementia, schizophrenia, muscle atrophy, weakness, s/p right BKA, chronic renal insufficiency, DM, hypothyroidism, cellulitis Subjective Information Pt sleeping at time of visit. Per MD note, pt has not eaten in 2-3 days. Spoke to COLUMBA Ulloa who confirms that pt has not been eating per pt's family and states pt will be NPO after midnight for Gtube placement tomorrow, and pt had hx of Gtube few years ago. RN states pt did not eat today. Current Diet Order/ Nutrition Support CCHO 60 gm, pureed Pertinent Medications Vit C, dextrose, folate, lasix , novolog, culturelle, megace Pertinent Labs 08/27: Na 160, K 2.8, Cl 133, BUN 69, Cr 2.6, Ca 8.4, POC 172-227, Alb 2.2, glucose 252 08/26: Na 158, K 2.4, Cl 132, BUN 70, Cr 2.6, Ca 8.6, POC 94 , Alb 2.3, Phos 2.3, glucose 107 Nutritional Hx/Data Height 1.78 m Height (Calculated Centimeters) 177.8 Current Weight (lbs) 60.963 kg Weight (Calculated Kilograms) 61.0 Weight (Calculated Grams) 55098.8 [place] Body Weight 156 lb (adj wt for right BKA) Body Mass Index (BMI) 19.3 Weight Status Approriate GI Symptoms GI Symptoms None Last BM none noted Difficult in: Swallowing Food Allergies No Skin Integrity/Comment: swelling to right elbow, bruise to left hand, edwar 13 Current %PO Negligible < 25% Estimated Nutritional Goals BEE in Kcals: Using Current wt Calories/Kcals/Kg 25-30 Kcals Calculated 4662-0461 Protein: Using Current wt Protein g/k.7-0.8 Protein Calculated 42-49g (monitor renal labs) Fluid: ml 5925-9046 (1 ml/kcal) Nutritional Problem 2. Problem Problem Altered nutrition related lab values Etiology electrolyte imbalance, renal insufficiency, endocrine dysfunction Signs/Symptoms: Na 160, K 2.8, Cl 133, BUN 69, Cr 2.6, Ca 8.4, POC 172-227, glucose 252 1. Problem Problem Inadequate oral intake Etiology dx of FTT, possible confusion, swallowing problem Signs/Symptoms: no PO intake x 2-3 days per MD note Malnutrition Related to Morbid Obesity Malnutrition related to morbid obesity No Intervention/Recommendation Comments 1. If TF initiated, recommend starting TF with [place] d/t elevated BUN/Cr and renal insufficency. Starting with 2 cans/day to monitor for refeeding syndrome and goal rate is 4 cans/day, which will provide 1700 kcals and 42.4 g protein, meeting 100% kcal needs protein needs. 2. Monitor TF, wt, skin integrity, and nutrition related labs 3. F/U as high risk in 2-3 days, 08/29- Expected Outcomes/Goals Expected Outcomes/Goals 1. PO intake to meet at least 75% of all meals and/or TF with tolerance 2. Wt stability, skin to remain intact, and nutrition related labs to approach normal limits Reviewed by Beatrice Smith RD
[2018-08-28] MEDS ORDERED: Sodium Bicarbonate 8.4% 50mEq PFS IVP ONE (13:56)
[2018-08-29] MEDS: Dextrose 5% 1,000 ML IV SCH ×2 (02:46→16:00)
[2018-08-29 05:40] LABS: % BASOPHILS 0.1 % (0.0-2.0); % LYMPHOCYTES 10.2 % (20.0-50.0); % MONOCYTES 3.1 % (2.0-10.0); % NEUTROPHILS 84.6 % (40.0-80.0); EOSINOPHILE ABSOLUTE 0.1 Th/cmm (0.1-0.4); HEMATOCRIT 25.2 % (41.0-60); HEMOGLOBIN 8.2 gm/dL (12-16); LYMPHOCYTE ABSOLUTE 0.7 Th/cmm (1.5-3.0); MEAN CELL VOLUME 93.9 fl (80-99); MEAN CORPUSCULAR HEMOGLOBIN 30.3 pg (27.0-31.0); MEAN CORPUSCULAR HGB CONC 32.3 pg (28.0-36.0); MEAN PLATELET VOLUME 8.6 fl; MONOCYTE ABSOLUTE 0.2 Th/cmm (0.3-1.0); NEUTROPHILE ABSOLUTE 6.2 Th/cmm (1.8-8.0); PLATELET COUNT 235 Th/cmm (150-400); RED BLOOD COUNT 2.69 Mil/cmm (3.80-5.80); RED CELL DISTRIBUTION WIDTH 14.7 % (11.5-20.0); WHITE BLOOD COUNT 7.2 Th/cmm (4.8-10.8)
[2018-08-29 06:02] LABS: ANION GAP 10.3 (7.0-16.0); BUN - UREA NITROGEN 48 mg/dL (7-25); CALCIUM SERUM 7.9 mg/dL (8.6-10.3); CARBON DIOXIDE 17.7 mEq/L (21.0-31.0); CHLORIDE 125 mEq/L (98-107); CREATININE - SERUM 1.9 mg/dL (0.7-1.3); GLUCOSE 369 mg/dL (70-105); SODIUM SERUM 150 mEq/L (136-145)
[2018-08-29] MEDS: INSULIN ASPART SLIDING SCALE 100 UNITS/ML UNIT SUBQ SCH ×4 (08:08→21:56)
--- NOTE | 2018-08-29 08:26 | General Progress Note ---
Subjective - Review of Systems Service Date: 08/29/18 Subjective: Patient obtunded, non responding to verbal commands. Objective - Results Result Diagrams: 08/29/18 04:55 08/29/18 04:55 Recent Labs: Laboratory Last Values WBC 7.2 Th/cmm (4.8-10.8) 08/29/18 04:55 RBC 2.69 Mil/cmm (3.80-5.80) L 08/29/18 04:55 Hgb 8.2 gm/dL (12-16) L 08/29/18 04:55 Hct 25.2 % (41.0-60) L 08/29/18 04:55 MCV 93.9 fl (80-99) 08/29/18 04:55 MCH 30.3 pg (27.0-31.0) 08/29/18 04:55 MCHC Differential 32.3 pg (28.0-36.0) 08/29/18 04:55 RDW 14.7 % (11.5-20.0) 08/29/18 04:55 Plt Count 235 Th/cmm (150-400) 08/29/18 04:55 MPV 8.6 fl 08/29/18 04:55 Add Manual Diff YES 08/27/18 04:39 Neutrophils % 84.6 % (40.0-80.0) H 08/29/18 04:55 Band Neutrophils % 0 % (0-10) 08/27/18 04:39 Lymphocytes % 10.2 % (20.0-50.0) L 08/29/18 04:55 Monocytes % 3.1 % (2.0-10.0) 08/29/18 04:55 Eosinophils % 2.0 % (0.0-5.0) 08/29/18 04:55 Basophils % 0.1 % (0.0-2.0) 08/29/18 04:55 Neutrophils (Manual) 90 % (40-80) H 08/27/18 04:39 Lymphocytes 6 % (20-50) L 08/27/18 04:39 Monocytes 3 % (2-10) 08/27/18 04:39 Eosinophils 1 % (0-5) 08/27/18 04:39 Basophils 0 % (0-3) 08/27/18 04:39 Eos Smear Source URINE 08/28/18 05:30 Eos Smear Total Cells NONE SEEN (NONE SEEN) 08/28/18 05:30 PT 10.6 SECONDS (9.5-11.5) 08/28/18 04:00 INR 1.02 (0.5-1.4) 08/28/18 04:00 PTT (Actin FS) 26.4 SECONDS (26.0-38.0) 08/28/18 04:00 Sodium 150 mEq/L (136-145) H 08/29/18 04:55 Potassium 3.0 mEq/L (3.5-5.1) L 08/29/18 04:55 Chloride 125 mEq/L (98-107) H 08/29/18 04:55 Carbon Dioxide 17.7 mEq/L (21.0-31.0) L 08/29/18 04:55 Anion Gap 10.3 (7.0-16.0) 08/29/18 04:55 BUN 48 mg/dL (7-25) H 08/29/18 04:55 Creatinine 1.9 mg/dL (0.7-1.3) H 08/29/18 04:55 Est GFR ( Amer) TNP 08/29/18 04:55 Est GFR (Non-Af Amer) TNP 08/29/18 04:55 BUN/Creatinine Ratio 25.3 08/29/18 04:55 Glucose 369 mg/dL (70-105) H 08/29/18 04:55 POC Glucose 398 MG/DL (70 - 105) H 08/29/18 08:01 Whole Bld Lactic Acid 1.17 mmol/L (0.60-1.99) 08/29/18 04:55 Uric Acid 8.2 mg/dL (4.4-7.6) H 08/28/18 04:00 Calcium 7.9 mg/dL (8.6-10.3) L 08/29/18 04:55 Phosphorus 2.9 mg/dL (2.5-5.0) 08/28/18 04:00 Magnesium 1.9 mg/dL (1.9-2.7) 08/28/18 04:00 Total Bilirubin 0.3 mg/dL (0.3-1.0) 08/28/18 04:00 AST 14 U/L (13-39) 08/28/18 04:00 ALT 18 U/L (7-52) 08/28/18 04:00 Alkaline Phosphatase 48 U/L (34-104) 08/28/18 04:00 B-Natriuretic Peptide 385.0 pg/mL (5.0-100.0) H 08/26/18 17:35 Total Protein 6.7 gm/dL (6.0-8.3) 08/28/18 04:00 Albumin 2.0 gm/dL (4.2-5.5) L 08/28/18 04:00 Globulin 4.7 gm/dL 08/28/18 04:00 Albumin/Globulin Ratio 0.4 (1.0-1.8) L 08/28/18 04:00 TSH 16.45 uIU/ml (0.34-5.60) H 08/26/18 17:35 Urine Source MIDSTREAM 08/28/18 05:30 Urine Color YELLOW 08/28/18 05:30 Urine Clarity HAZY (CLEAR) 08/28/18 05:30 Urine pH 5.0 (4.6 - 8.0) 08/28/18 05:30 Ur Specific [place] 1.025 (1.005-1.030) 08/28/18 05:30 Urine Protein TRACE mg/dL (NEGATIVE) 08/28/18 05:30 Urine Glucose (UA) NEGATIVE mg/dL (NEGATIVE) 08/28/18 05:30 Urine Ketones NEGATIVE mg/dL (NEGATIVE) 08/28/18 05:30 Urine Blood NEGATIVE (NEGATIVE) 08/28/18 05:30 Urine Nitrate NEGATIVE (NEGATIVE) 08/28/18 05:30 Urine Bilirubin NEGATIVE (NEGATIVE) 08/28/18 05:30 Urine Urobilinogen 0.2 E.U./dL (0.2 - 1.0) 08/28/18 05:30 Ur Leukocyte Esterase NEGATIVE (NEGATIVE) 08/28/18 05:30 Urine RBC 0-2 /hpf (0-5) H 08/28/18 05:30 Urine WBC 0-2 /hpf (0-5) 08/28/18 05:30 Ur Epithelial Cells OCCASIONAL /lpf (FEW) 08/28/18 05:30 Amorphous Sediment FEW URATES (NONE SEEN) 08/28/18 05:30 Urine Bacteria NONE SEEN /hpf (NONE SEEN) 08/28/18 05:30 Ur Random Sodium 53 mmol/L 08/28/18 05:30 Urine Creatinine 74.0 mg/dl (39.0-259.0) 08/28/18 05:30 Serum Ketones NEGATIVE (NEGATIVE) 08/29/18 04:55 - Physical Exam Vitals and I&O: Vital Signs Temp 97.1 F 08/29/18 04:00 Pulse 95 08/29/18 04:00 Resp 18 08/29/18 04:00 BP 128/50 08/29/18 04:00 Pulse Ox 98 08/29/18 04:00 Intake & Output 08/28/18 08/29/18 08/29/18 18:59 06:59 18:59 Intake Total 1120 2236.667 Output Total 1225 525 Balance -105 1711.667 Weight (lbs) 61.235 kg 60.951 kg Intake: Intake, IV Amount 1000 1336.667 Dextrose 5% 1,000 ml @ 1000 1336.667 100 mls/hr IV .Q10H [facility] Rx#:[id number] Tube Feeding 120 900 Output: Urine 1225 525 Other: # Bowel Movements 1 3 Weight Source Bedscale Bedscale Active Medications: Current Medications Acetaminophen (Tylenol) 650 mg PO Q6HR PRN PRN Reason: Pain Or Fever >100F Stop: 10/26/18 08:37 Ascorbic Acid (Vitamin C) 500 mg PO DAILY [facility] Stop: 10/26/18 08:59 Last Admin: 08/28/18 08:43 Dose: 500 mg Donepezil HCl (Aricept) 5 mg PO HS [facility] Stop: 10/26/18 20:59 Last Admin: 08/28/18 20:12 Dose: 5 mg Folic Acid (Folate) 1 mg PO DAILY [facility] Stop: 10/26/18 08:59 Last Admin: 08/28/18 08:43 Dose: 1 mg Dextrose (D5w) 1,000 mls @ 100 mls/hr IV .Q10H [facility] Stop: 10/26/18 14:29 Last Infusion: 08/29/18 06:08 Dose: 100 mls/hr Potassium Chloride (Potassium Chloride) 20 meq in 100 mls @ 50 mls/hr IV Q2H [facility] Stop: 08/29/18 10:44 Insulin Aspart (Novolog Insulin Sliding Scale) 0 units SUBQ ACHS [facility]; Protocol Stop: 10/26/18 07:29 Last Admin: 08/29/18 08:08 Dose: 10 units Lactobacillus Rhamnosus (Culturelle 15b) 1 each PO DAILY [facility] Stop: 10/26/18 08:59 Last Admin: 08/28/18 08:43 Dose: 1 each Levothyroxine Sodium 0.112 mg/ (Levothyroxine Sodium 0.025 mg) 0.137 mg PO QDAC [facility] Stop: 10/27/18 07:29 Last Admin: 08/28/18 07:00 Dose: Not Given Megestrol Acetate (Megace) 400 mg PO BIDAC [facility] Stop: 10/26/18 16:29 Last Admin: 08/28/18 15:31 Dose: 400 mg Tamsulosin HCl (Flomax) 0.4 mg PO HS [facility] Stop: 10/26/18 20:59 Last Admin: 08/28/18 20:12 Dose: 0.4 mg General: No acute distress HEENT: Atraumatic, Mucous membr. moist/pink Neck: Supple, +2 carotid pulse wo bruit Cardiovascular: Regular rate, Normal S1, Normal S2 Lungs: Clear to auscultation Abdomen: Bowel sounds, Soft, Other (G-tube in place,) Extremities: Other (No edema), no Edema Neurological: Sensation intact, Other (Non ambulatory) Skin: no Rash Psych/Mental Status: Mood NL, Other (Patient is obtunded non following verbal commands, responding to pain. ) - Procedures Procedures: Procedures Procedure Code Date DETACHMENT AT RIGHT LOWER LEG, HIGH, OPEN APPROACH [id number] 07/14/18 OTHER GROUP THERAPY 94.44 04/17/13 Assessment/Plan - Assessment Assessment: Patient is obtunded, responding to pain. Dx: Failure to thrive, Hypernatremia, Hypokalemia, DM, HTN, Hypothyroidism, CKD, CHF, Anemia, Dementia, S/P BK amputation. - Plan Plan: Na decreasing, K increasing, G-tube in place, feeding started. He is in IV D5, Patient follow by Cardio and nephro. Will continue to monitor. Nutritional Asmnt/Malnutr-PDOC - Dietary Evaluation Malnutrition Findings (Please click <Entered> for more info): Nutritional Asmnt/Malnutrition Start: 08/27/18 14: 19 Text: Status: Complete Freq: Protocol: Document 08/27/18 14:19 WILLIAM (Rec: 08/27/18 15:33 [email or web address]) Nutritional Asmnt/Malnutrition Patient General Information Nutritional Screening High Risk Diagnosis FTT, G Tube replacement Pertinent Medical Hx/Surgical Hx CAD, CHF, HTN, dementia, schizophrenia, muscle atrophy, weakness, s/p right BKA, chronic renal insufficiency, DM, hypothyroidism, cellulitis Subjective Information Pt sleeping at time of visit. Per MD note, pt has not eaten in 2-3 days. Spoke to RN Artemio who confirms that pt has not been eating per pt's family and states pt will be NPO after midnight for Gtube placement tomorrow, and pt had hx of Gtube few years ago. RN states pt did not eat today. Current Diet Order/ Nutrition Support CCHO 60 gm, pureed Pertinent Medications Vit C, dextrose, folate, lasix , novolog, culturelle, megace Pertinent Labs 08/27: Na 160, K 2.8, Cl 133, BUN 69, Cr 2.6, Ca 8.4, POC 172-227, Alb 2.2, glucose 252 08/26: Na 158, K 2.4, Cl 132, BUN 70, Cr 2.6, Ca 8.6, POC 94 , Alb 2.3, Phos 2.3, glucose 107 Nutritional Hx/Data Height 1.78 m Height (Calculated Centimeters) 177.8 Current Weight (lbs) 60.963 kg Weight (Calculated Kilograms) 61.0 Weight (Calculated Grams) 22629.8 [place] Body Weight 156 lb (adj wt for right BKA) Body Mass Index (BMI) 19.3 Weight Status Approriate GI Symptoms GI Symptoms None Last BM none noted Difficult in: Swallowing Food Allergies No Skin Integrity/Comment: swelling to right elbow, bruise to left hand, edwar 13 Current %PO Negligible < 25% Estimated Nutritional Goals BEE in Kcals: Using Current wt Calories/Kcals/Kg 25-30 Kcals Calculated 8230-7458 Protein: Using Current wt Protein g/k.7-0.8 Protein Calculated 42-49g (monitor renal labs) Fluid: ml 4072-9252 (1 ml/kcal) Nutritional Problem 2. Problem Problem Altered nutrition related lab values Etiology electrolyte imbalance, renal insufficiency, endocrine dysfunction Signs/Symptoms: Na 160, K 2.8, Cl 133, BUN 69, Cr 2.6, Ca 8.4, POC 172-227, glucose 252 1. Problem Problem Inadequate oral intake Etiology dx of FTT, possible confusion, swallowing problem Signs/Symptoms: no PO intake x 2-3 days per MD note Malnutrition Related to Morbid Obesity Malnutrition related to morbid obesity No Intervention/Recommendation Comments 1. If TF initiated, recommend starting TF with [place] d/t elevated BUN/Cr and renal insufficency. Starting with 2 cans/day to monitor for refeeding syndrome and goal rate is 4 cans/day, which will provide 1700 kcals and 42.4 g protein, meeting 100% kcal needs protein needs. 2. Monitor TF, wt, skin integrity, and nutrition related labs 3. F/U as high risk in 2-3 days, 08/29- Expected Outcomes/Goals Expected Outcomes/Goals 1. PO intake to meet at least 75% of all meals and/or TF with tolerance 2. Wt stability, skin to remain intact, and nutrition related labs to approach normal limits Reviewed by Beatrice Smith RD
--- NOTE | 2018-08-29 08:35 | Diagnostic Imaging Report ---
Renal ultrasound HISTORY: Pain, difficulty urination There is poor delineation of the margins of the right kidney that measures approximately 9.0 x 5.5 x 5.0 cm. No obvious focal lesions Giuliano processes. The left kidney measures 10.3 x 4.9 x 5.8 cm. No focal lesions. No hydronephrosis. No intraluminal abnormality seen within the urinary bladder. IMPRESSION: 1. Suboptimal detail of the right kidney. No obvious focal renal lesions or hydronephrosis. 2. No intraluminal abnormalities seen within the urinary bladder.
[2018-08-29] MEDS: KCL 20mEq/100mL Premix 20 MEQ/100 ML PIGGYBACK IV SCH ×2 (08:44→12:45)
--- NOTE | 2018-08-29 09:37 | Diagnostic Imaging Report ---
Portable chest x-ray HISTORY: Cough The overall heart size appears normal. Atherosclerotic calcification seen in the aorta. No acute focal pulmonary parenchymal processes. No evidence of pleural fluid. Surgical clips and suture material noted over the chest. IMPRESSION: 1. No acute processes
[2018-08-29] MEDS: Lactobacillus Rhamnosus GG 15 Billion CFU CAP.SPRINK PO SCH (10:00)
--- NOTE | 2018-08-29 10:18 | GI Progress Note ---
Subjective - Review of Systems Service Date: 08/29/18 Subjective: EVENTS NOTED SOME POST TUSSIVE EMESIS. ALISSON GT FEEDS. NO GASTRIC RESIDUALS. Objective - Results Result Diagrams: 08/29/18 04:55 08/29/18 04:55 Recent Labs: Laboratory Last Values WBC 7.2 Th/cmm (4.8-10.8) 08/29/18 04:55 RBC 2.69 Mil/cmm (3.80-5.80) L 08/29/18 04:55 Hgb 8.2 gm/dL (12-16) L 08/29/18 04:55 Hct 25.2 % (41.0-60) L 08/29/18 04:55 MCV 93.9 fl (80-99) 08/29/18 04:55 MCH 30.3 pg (27.0-31.0) 08/29/18 04:55 MCHC Differential 32.3 pg (28.0-36.0) 08/29/18 04:55 RDW 14.7 % (11.5-20.0) 08/29/18 04:55 Plt Count 235 Th/cmm (150-400) 08/29/18 04:55 MPV 8.6 fl 08/29/18 04:55 Add Manual Diff YES 08/27/18 04:39 Neutrophils % 84.6 % (40.0-80.0) H 08/29/18 04:55 Band Neutrophils % 0 % (0-10) 08/27/18 04:39 Lymphocytes % 10.2 % (20.0-50.0) L 08/29/18 04:55 Monocytes % 3.1 % (2.0-10.0) 08/29/18 04:55 Eosinophils % 2.0 % (0.0-5.0) 08/29/18 04:55 Basophils % 0.1 % (0.0-2.0) 08/29/18 04:55 Neutrophils (Manual) 90 % (40-80) H 08/27/18 04:39 Lymphocytes 6 % (20-50) L 08/27/18 04:39 Monocytes 3 % (2-10) 08/27/18 04:39 Eosinophils 1 % (0-5) 08/27/18 04:39 Basophils 0 % (0-3) 08/27/18 04:39 Eos Smear Source URINE 08/28/18 05:30 Eos Smear Total Cells NONE SEEN (NONE SEEN) 08/28/18 05:30 PT 10.6 SECONDS (9.5-11.5) 08/28/18 04:00 INR 1.02 (0.5-1.4) 08/28/18 04:00 PTT (Actin FS) 26.4 SECONDS (26.0-38.0) 08/28/18 04:00 Sodium 150 mEq/L (136-145) H 08/29/18 04:55 Potassium 3.0 mEq/L (3.5-5.1) L 08/29/18 04:55 Chloride 125 mEq/L (98-107) H 08/29/18 04:55 Carbon Dioxide 17.7 mEq/L (21.0-31.0) L 08/29/18 04:55 Anion Gap 10.3 (7.0-16.0) 08/29/18 04:55 BUN 48 mg/dL (7-25) H 08/29/18 04:55 Creatinine 1.9 mg/dL (0.7-1.3) H 08/29/18 04:55 Est GFR ( Amer) TNP 08/29/18 04:55 Est GFR (Non-Af Amer) TNP 08/29/18 04:55 BUN/Creatinine Ratio 25.3 08/29/18 04:55 Glucose 369 mg/dL (70-105) H 08/29/18 04:55 POC Glucose 398 MG/DL (70 - 105) H 08/29/18 08:01 Whole Bld Lactic Acid 1.17 mmol/L (0.60-1.99) 08/29/18 04:55 Uric Acid 8.2 mg/dL (4.4-7.6) H 08/28/18 04:00 Calcium 7.9 mg/dL (8.6-10.3) L 08/29/18 04:55 Phosphorus 2.9 mg/dL (2.5-5.0) 08/28/18 04:00 Magnesium 1.9 mg/dL (1.9-2.7) 08/28/18 04:00 Total Bilirubin 0.3 mg/dL (0.3-1.0) 08/28/18 04:00 AST 14 U/L (13-39) 08/28/18 04:00 ALT 18 U/L (7-52) 08/28/18 04:00 Alkaline Phosphatase 48 U/L (34-104) 08/28/18 04:00 B-Natriuretic Peptide 385.0 pg/mL (5.0-100.0) H 08/26/18 17:35 Total Protein 6.7 gm/dL (6.0-8.3) 08/28/18 04:00 Albumin 2.0 gm/dL (4.2-5.5) L 08/28/18 04:00 Globulin 4.7 gm/dL 08/28/18 04:00 Albumin/Globulin Ratio 0.4 (1.0-1.8) L 08/28/18 04:00 TSH 16.45 uIU/ml (0.34-5.60) H 08/26/18 17:35 Urine Source MIDSTREAM 08/28/18 05:30 Urine Color YELLOW 08/28/18 05:30 Urine Clarity HAZY (CLEAR) 08/28/18 05:30 Urine pH 5.0 (4.6 - 8.0) 08/28/18 05:30 Ur Specific [place] 1.025 (1.005-1.030) 08/28/18 05:30 Urine Protein TRACE mg/dL (NEGATIVE) 08/28/18 05:30 Urine Glucose (UA) NEGATIVE mg/dL (NEGATIVE) 08/28/18 05:30 Urine Ketones NEGATIVE mg/dL (NEGATIVE) 08/28/18 05:30 Urine Blood NEGATIVE (NEGATIVE) 08/28/18 05:30 Urine Nitrate NEGATIVE (NEGATIVE) 08/28/18 05:30 Urine Bilirubin NEGATIVE (NEGATIVE) 08/28/18 05:30 Urine Urobilinogen 0.2 E.U./dL (0.2 - 1.0) 08/28/18 05:30 Ur Leukocyte Esterase NEGATIVE (NEGATIVE) 08/28/18 05:30 Urine RBC 0-2 /hpf (0-5) H 08/28/18 05:30 Urine WBC 0-2 /hpf (0-5) 08/28/18 05:30 Ur Epithelial Cells OCCASIONAL /lpf (FEW) 08/28/18 05:30 Amorphous Sediment FEW URATES (NONE SEEN) 08/28/18 05:30 Urine Bacteria NONE SEEN /hpf (NONE SEEN) 08/28/18 05:30 Ur Random Sodium 53 mmol/L 08/28/18 05:30 Urine Creatinine 74.0 mg/dl (39.0-259.0) 08/28/18 05:30 Serum Ketones NEGATIVE (NEGATIVE) 08/29/18 04:55 - Physical Exam Vitals and I&O: Vital Signs Temp 96.7 F 08/29/18 08:00 Pulse 82 08/29/18 08:00 Resp 20 08/29/18 08:00 BP 112/71 08/29/18 08:00 Pulse Ox 99 08/29/18 08:00 Intake & Output 08/28/18 08/29/18 08/29/18 18:59 06:59 18:59 Intake Total 1120 2236.667 Output Total 1225 525 Balance -105 1711.667 Weight (lbs) 61.235 kg 60.951 kg Intake: Intake, IV Amount 1000 1336.667 Dextrose 5% 1,000 ml @ 1000 1336.667 100 mls/hr IV .Q10H [facility] Rx#:[id number] Tube Feeding 120 900 Output: Urine 1225 525 Other: # Bowel Movements 1 3 Weight Source Bedscale Bedscale Active Medications: Current Medications Acetaminophen (Tylenol) 650 mg PO Q6HR PRN PRN Reason: Pain Or Fever >100F Stop: 10/26/18 08:37 Ascorbic Acid (Vitamin C) 500 mg PO DAILY [facility] Stop: 10/26/18 08:59 Last Admin: 08/29/18 10:00 Dose: 500 mg Donepezil HCl (Aricept) 5 mg PO HS [facility] Stop: 10/26/18 20:59 Last Admin: 08/28/18 20:12 Dose: 5 mg Folic Acid (Folate) 1 mg PO DAILY [facility] Stop: 10/26/18 08:59 Last Admin: 08/29/18 10:00 Dose: 1 mg Dextrose (D5w) 1,000 mls @ 100 mls/hr IV .Q10H [facility] Stop: 10/26/18 14:29 Last Infusion: 08/29/18 06:08 Dose: 100 mls/hr Potassium Chloride (Potassium Chloride) 20 meq in 100 mls @ 50 mls/hr IV Q2H [facility] Stop: 08/29/18 10:44 Last Admin: 08/29/18 08:44 Dose: 50 mls/hr Insulin Aspart (Novolog Insulin Sliding Scale) 0 units SUBQ ACHS [facility]; Protocol Stop: 10/26/18 07:29 Last Admin: 08/29/18 08:08 Dose: 10 units Lactobacillus Rhamnosus (Culturelle 15b) 1 each PO DAILY [facility] Stop: 10/26/18 08:59 Last Admin: 08/29/18 10:00 Dose: 1 each Levothyroxine Sodium 0.112 mg/ (Levothyroxine Sodium 0.025 mg) 0.137 mg PO QDAC [facility] Stop: 10/27/18 07:29 Last Admin: 08/28/18 07:00 Dose: Not Given Megestrol Acetate (Megace) 400 mg PO BIDAC [facility] Stop: 10/26/18 16:29 Last Admin: 08/28/18 15:31 Dose: 400 mg Tamsulosin HCl (Flomax) 0.4 mg PO HS [facility] Stop: 10/26/18 20:59 Last Admin: 08/28/18 20:12 Dose: 0.4 mg General: No acute distress HEENT: Atraumatic Neck: Supple Cardiovascular: Regular rate Lungs: Clear to auscultation Abdomen: Bowel sounds, Soft, Other (G-tube in place) Extremities: Other (No edema), no Edema Skin: no Rash - Procedures Procedures: Procedures Procedure Code Date DETACHMENT AT RIGHT LOWER LEG, HIGH, OPEN APPROACH [id number] 07/14/18 OTHER GROUP THERAPY 94.44 04/17/13 Assessment/Plan - Assessment Assessment: IMPRESSION: 1. DYSPHAGIA, S/P GT PLACEMENT 08/28. 2. ANEMIA. 3. DEMENTIA. RECS: 1. ADVANCE TUBE FEEDS [place]IS[place]. 2. MONITOR HGB. 3. CONTINUE MEDS.
[2018-08-29] MEDS ORDERED: KCL 20mEq/100mL Premix 20 MEQ/100 ML PIGGYBACK IV ONE (12:12)
--- NOTE | 2018-08-29 13:28 | General Progress Note ---
Subjective - Review of Systems Service Date: 08/29/18 Subjective: sleeping, comfortable Objective - Results Result Diagrams: 08/29/18 04:55 08/29/18 04:55 Recent Labs: Laboratory Last Values WBC 7.2 Th/cmm (4.8-10.8) 08/29/18 04:55 RBC 2.69 Mil/cmm (3.80-5.80) L 08/29/18 04:55 Hgb 8.2 gm/dL (12-16) L 08/29/18 04:55 Hct 25.2 % (41.0-60) L 08/29/18 04:55 MCV 93.9 fl (80-99) 08/29/18 04:55 MCH 30.3 pg (27.0-31.0) 08/29/18 04:55 MCHC Differential 32.3 pg (28.0-36.0) 08/29/18 04:55 RDW 14.7 % (11.5-20.0) 08/29/18 04:55 Plt Count 235 Th/cmm (150-400) 08/29/18 04:55 MPV 8.6 fl 08/29/18 04:55 Add Manual Diff YES 08/27/18 04:39 Neutrophils % 84.6 % (40.0-80.0) H 08/29/18 04:55 Band Neutrophils % 0 % (0-10) 08/27/18 04:39 Lymphocytes % 10.2 % (20.0-50.0) L 08/29/18 04:55 Monocytes % 3.1 % (2.0-10.0) 08/29/18 04:55 Eosinophils % 2.0 % (0.0-5.0) 08/29/18 04:55 Basophils % 0.1 % (0.0-2.0) 08/29/18 04:55 Neutrophils (Manual) 90 % (40-80) H 08/27/18 04:39 Lymphocytes 6 % (20-50) L 08/27/18 04:39 Monocytes 3 % (2-10) 08/27/18 04:39 Eosinophils 1 % (0-5) 08/27/18 04:39 Basophils 0 % (0-3) 08/27/18 04:39 Eos Smear Source URINE 08/28/18 05:30 Eos Smear Total Cells NONE SEEN (NONE SEEN) 08/28/18 05:30 PT 10.6 SECONDS (9.5-11.5) 08/28/18 04:00 INR 1.02 (0.5-1.4) 08/28/18 04:00 PTT (Actin FS) 26.4 SECONDS (26.0-38.0) 08/28/18 04:00 Sodium 150 mEq/L (136-145) H 08/29/18 04:55 Potassium 3.0 mEq/L (3.5-5.1) L 08/29/18 04:55 Chloride 125 mEq/L (98-107) H 08/29/18 04:55 Carbon Dioxide 17.7 mEq/L (21.0-31.0) L 08/29/18 04:55 Anion Gap 10.3 (7.0-16.0) 08/29/18 04:55 BUN 48 mg/dL (7-25) H 08/29/18 04:55 Creatinine 1.9 mg/dL (0.7-1.3) H 08/29/18 04:55 Est GFR ( Amer) TNP 08/29/18 04:55 Est GFR (Non-Af Amer) TNP 08/29/18 04:55 BUN/Creatinine Ratio 25.3 08/29/18 04:55 Glucose 369 mg/dL (70-105) H 08/29/18 04:55 POC Glucose 158 MG/DL (70 - 105) H 08/29/18 12:15 Whole Bld Lactic Acid 1.17 mmol/L (0.60-1.99) 08/29/18 04:55 Uric Acid 8.2 mg/dL (4.4-7.6) H 08/28/18 04:00 Calcium 7.9 mg/dL (8.6-10.3) L 08/29/18 04:55 Phosphorus 2.9 mg/dL (2.5-5.0) 08/28/18 04:00 Magnesium 1.9 mg/dL (1.9-2.7) 08/28/18 04:00 Total Bilirubin 0.3 mg/dL (0.3-1.0) 08/28/18 04:00 AST 14 U/L (13-39) 08/28/18 04:00 ALT 18 U/L (7-52) 08/28/18 04:00 Alkaline Phosphatase 48 U/L (34-104) 08/28/18 04:00 B-Natriuretic Peptide 385.0 pg/mL (5.0-100.0) H 08/26/18 17:35 Total Protein 6.7 gm/dL (6.0-8.3) 08/28/18 04:00 Albumin 2.0 gm/dL (4.2-5.5) L 08/28/18 04:00 Globulin 4.7 gm/dL 08/28/18 04:00 Albumin/Globulin Ratio 0.4 (1.0-1.8) L 08/28/18 04:00 TSH 16.45 uIU/ml (0.34-5.60) H 08/26/18 17:35 Urine Source MIDSTREAM 08/28/18 05:30 Urine Color YELLOW 08/28/18 05:30 Urine Clarity HAZY (CLEAR) 08/28/18 05:30 Urine pH 5.0 (4.6 - 8.0) 08/28/18 05:30 Ur Specific [place] 1.025 (1.005-1.030) 08/28/18 05:30 Urine Protein TRACE mg/dL (NEGATIVE) 08/28/18 05:30 Urine Glucose (UA) NEGATIVE mg/dL (NEGATIVE) 08/28/18 05:30 Urine Ketones NEGATIVE mg/dL (NEGATIVE) 08/28/18 05:30 Urine Blood NEGATIVE (NEGATIVE) 08/28/18 05:30 Urine Nitrate NEGATIVE (NEGATIVE) 08/28/18 05:30 Urine Bilirubin NEGATIVE (NEGATIVE) 08/28/18 05:30 Urine Urobilinogen 0.2 E.U./dL (0.2 - 1.0) 08/28/18 05:30 Ur Leukocyte Esterase NEGATIVE (NEGATIVE) 08/28/18 05:30 Urine RBC 0-2 /hpf (0-5) H 08/28/18 05:30 Urine WBC 0-2 /hpf (0-5) 08/28/18 05:30 Ur Epithelial Cells OCCASIONAL /lpf (FEW) 08/28/18 05:30 Amorphous Sediment FEW URATES (NONE SEEN) 08/28/18 05:30 Urine Bacteria NONE SEEN /hpf (NONE SEEN) 08/28/18 05:30 Ur Random Sodium 53 mmol/L 08/28/18 05:30 Urine Creatinine 74.0 mg/dl (39.0-259.0) 08/28/18 05:30 Microalb/Creat Ratio 62.2 mg/g creat (0.0-30.0) H 08/28/18 05:30 Serum Ketones NEGATIVE (NEGATIVE) 08/29/18 04:55 - Physical Exam Vitals and I&O: Vital Signs Temp 97.8 F 08/29/18 12:00 Pulse 74 08/29/18 12:00 Resp 24 08/29/18 12:00 BP 128/67 08/29/18 12:00 Pulse Ox 99 08/29/18 12:00 Intake & Output 08/28/18 08/29/18 08/29/18 18:59 06:59 18:59 Intake Total 1120 2236.667 100 Output Total 1225 525 Balance -105 1711.667 100 Weight (lbs) 61.235 kg 60.951 kg Intake: Intake, IV Amount 1000 1336.667 100 Dextrose 5% 1,000 ml @ 1000 1336.667 100 mls/hr IV .Q10H [facility] Rx#:[id number] KCL 20mEq/100mL Premix 20 100 meq In 100 ml @ 50 mls/ hr IV Q2H [facility] Rx#: [id number] Tube Feeding 120 900 Output: Urine 1225 525 Other: # Bowel Movements 1 3 Weight Source Bedscale Bedscale Active Medications: Current Medications Acetaminophen (Tylenol) 650 mg PO Q6HR PRN PRN Reason: Pain Or Fever >100F Stop: 10/26/18 08:37 Ascorbic Acid (Vitamin C) 500 mg PO DAILY [facility] Stop: 10/26/18 08:59 Last Admin: 08/29/18 10:00 Dose: 500 mg Donepezil HCl (Aricept) 5 mg PO HS [facility] Stop: 10/26/18 20:59 Last Admin: 08/28/18 20:12 Dose: 5 mg Folic Acid (Folate) 1 mg PO DAILY [facility] Stop: 10/26/18 08:59 Last Admin: 08/29/18 10:00 Dose: 1 mg Dextrose (D5w) 1,000 mls @ 100 mls/hr IV .Q10H [facility] Stop: 10/26/18 14:29 Last Infusion: 08/29/18 06:08 Dose: 100 mls/hr Potassium Chloride (Potassium Chloride) 20 meq in 100 mls @ 50 mls/hr IV X1 ONE Stop: 08/29/18 14:11 Last Admin: 08/29/18 12:46 Dose: Not Given Insulin Aspart (Novolog Insulin Sliding Scale) 0 units SUBQ ACHS [facility]; Protocol Stop: 10/26/18 07:29 Last Admin: 08/29/18 12:45 Dose: 2 units Lactobacillus Rhamnosus (Culturelle 15b) 1 each PO DAILY [facility] Stop: 10/26/18 08:59 Last Admin: 08/29/18 10:00 Dose: 1 each Levothyroxine Sodium 0.112 mg/ (Levothyroxine Sodium 0.025 mg) 0.137 mg PO QDAC [facility] Stop: 10/27/18 07:29 Last Admin: 08/29/18 12:44 Dose: 0.137 mg Megestrol Acetate (Megace) 400 mg PO BIDAC [facility] Stop: 10/26/18 16:29 Last Admin: 08/29/18 12:44 Dose: 400 mg Sodium Bicarbonate (Sodium Bicarbonate) 650 mg PO BID [facility]; Protocol Stop: 10/28/18 16:59 Tamsulosin HCl (Flomax) 0.4 mg PO HS [facility] Stop: 10/26/18 20:59 Last Admin: 08/28/18 20:12 Dose: 0.4 mg General: No acute distress HEENT: Atraumatic Neck: Supple Cardiovascular: Regular rate Lungs: Clear to auscultation Abdomen: Bowel sounds, Soft, Other (G-tube in place) Extremities: Other (No edema), no Edema Neurological: Sensation intact, Other (Non ambulatory) Skin: no Rash Psych/Mental Status: Mood NL, Other (Patient is obtunded non following verbal commands, responding to pain. ) - Procedures Procedures: Procedures Procedure Code Date DETACHMENT AT RIGHT LOWER LEG, HIGH, OPEN APPROACH [id number] 07/14/18 OTHER GROUP THERAPY 94.44 04/17/13 Assessment/Plan - Assessment Assessment: RHONDA FTT Hypernatremia Hypokalemia AG Met Acid Distended Bladder - Plan Plan: Lab - Result Diagrams 08/28/18 04:00 08/28/18 04:00 Current Medications Acetaminophen (Tylenol) 650 mg PO Q6HR PRN PRN Reason: Pain Or Fever >100F Stop: 10/26/18 08:37 Ascorbic Acid (Vitamin C) 500 mg PO DAILY [facility] Stop: 10/26/18 08:59 Last Admin: 08/28/18 08:43 Dose: 500 mg Donepezil HCl (Aricept) 5 mg PO HS [facility] Stop: 10/26/18 20:59 Last Admin: 08/27/18 20:46 Dose: Not Given Folic Acid (Folate) 1 mg PO DAILY [facility] Stop: 10/26/18 08:59 Last Admin: 08/28/18 08:43 Dose: 1 mg Dextrose (D5w) 1,000 mls @ 100 mls/hr IV .Q10H [facility] Stop: 10/26/18 14:29 Last Admin: 08/28/18 01:29 Dose: 100 mls/hr Insulin Aspart (Novolog Insulin Sliding Scale) 0 units SUBQ ACHS [facility]; Protocol Stop: 10/26/18 07:29 Last Admin: 08/28/18 11:32 Dose: 4 units Lactobacillus Rhamnosus (Culturelle 15b) 1 each PO DAILY [facility] Stop: 10/26/18 08:59 Last Admin: 08/28/18 08:43 Dose: 1 each Levothyroxine Sodium 0.112 mg/ (Levothyroxine Sodium 0.025 mg) 0.137 mg PO QDAC [facility] Stop: 10/27/18 07:29 Last Admin: 08/28/18 07:00 Dose: Not Given Megestrol Acetate (Megace) 400 mg PO BIDAC [facility] Stop: 10/26/18 16:29 Last Admin: 08/28/18 07:00 Dose: Not Given Tamsulosin HCl (Flomax) 0.4 mg PO HS [facility] Stop: 10/26/18 20:59 Last Admin: 08/27/18 20:47 Dose: Not Given Lab - Result Diagrams 08/29/18 04:55 08/29/18 04:55 Na down to 150 Kidney fnc gradualy improving w/ BUN/CR of 48/1.9 replace K, NaHC03 FENa 1.05% suggestive of intrinsic renal failure continue IVF f/u electrolytes, cbc residual volume > 600 ml Nutritional Asmnt/Malnutr-PDOC - Dietary Evaluation Malnutrition Findings (Please click <Entered> for more info): Nutritional Asmnt/Malnutrition Start: 12/04/18 14: 19 Text: Status: Complete Freq: Protocol: Document 08/27/18 14:19 WILLIAM (Rec: 08/27/18 15:33 WILLIAM [email or web address]) Nutritional Asmnt/Malnutrition Patient General Information Nutritional Screening High Risk Diagnosis FTT, G Tube replacement Pertinent Medical Hx/Surgical Hx CAD, CHF, HTN, dementia, schizophrenia, muscle atrophy, weakness, s/p right BKA, chronic renal insufficiency, DM, hypothyroidism, cellulitis Subjective Information Pt sleeping at time of visit. Per MD note, pt has not eaten in 2-3 days. Spoke to RN Artemio who confirms that pt has not been eating per pt's family and states pt will be NPO after midnight for Gtube placement tomorrow, and pt had hx of Gtube few years ago. RN states pt did not eat today. Current Diet Order/ Nutrition Support CCHO 60 gm, pureed Pertinent Medications Vit C, dextrose, folate, lasix , novolog, culturelle, megace Pertinent Labs 08/27: Na 160, K 2.8, Cl 133, BUN 69, Cr 2.6, Ca 8.4, POC 172-227, Alb 2.2, glucose 252 08/26: Na 158, K 2.4, Cl 132, BUN 70, Cr 2.6, Ca 8.6, POC 94 , Alb 2.3, Phos 2.3, glucose 107 Nutritional Hx/Data Height 1.78 m Height (Calculated Centimeters) 177.8 Current Weight (lbs) 60.963 kg Weight (Calculated Kilograms) 61.0 Weight (Calculated Grams) 62545.8 [place] Body Weight 156 lb (adj wt for right BKA) Body Mass Index (BMI) 19.3 Weight Status Approriate GI Symptoms GI Symptoms None Last BM none noted Difficult in: Swallowing Food Allergies No Skin Integrity/Comment: swelling to right elbow, bruise to left hand, edwar 13 Current %PO Negligible < 25% Estimated Nutritional Goals BEE in Kcals: Using Current wt Calories/Kcals/Kg 25-30 Kcals Calculated 6845-4721 Protein: Using Current wt Protein g/k.7-0.8 Protein Calculated 42-49g (monitor renal labs) Fluid: ml 9836-4133 (1 ml/kcal) Nutritional Problem 2. Problem Problem Altered nutrition related lab values Etiology electrolyte imbalance, renal insufficiency, endocrine dysfunction Signs/Symptoms: Na 160, K 2.8, Cl 133, BUN 69, Cr 2.6, Ca 8.4, POC 172-227, glucose 252 1. Problem Problem Inadequate oral intake Etiology dx of FTT, possible confusion, swallowing problem Signs/Symptoms: no PO intake x 2-3 days per MD note Malnutrition Related to Morbid Obesity Malnutrition related to morbid obesity No Intervention/Recommendation Comments 1. If TF initiated, recommend starting TF with [place] d/t elevated BUN/Cr and renal insufficency. Starting with 2 cans/day to monitor for refeeding syndrome and goal rate is 4 cans/day, which will provide 1700 kcals and 42.4 g protein, meeting 100% kcal needs protein needs. 2. Monitor TF, wt, skin integrity, and nutrition related labs 3. F/U as high risk in 2-3 days, 08/29- Expected Outcomes/Goals Expected Outcomes/Goals 1. PO intake to meet at least 75% of all meals and/or TF with tolerance 2. Wt stability, skin to remain intact, and nutrition related labs to approach normal limits Reviewed by Beatrice Smith RD
[2018-08-30] MEDS: Dextrose 5% 1,000 ML IV SCH (01:46)
[2018-08-30 05:37] LABS: % BASOPHILS 0.2 % (0.0-2.0); % EOSINOPHILS 5.6 % (0.0-5.0); % LYMPHOCYTES 13.8 % (20.0-50.0); % MONOCYTES 4.7 % (2.0-10.0); % NEUTROPHILS 75.7 % (40.0-80.0); EOSINOPHILE ABSOLUTE 0.3 Th/cmm (0.1-0.4); HEMATOCRIT 24.7 % (41.0-60); HEMOGLOBIN 8.1 gm/dL (12-16); LYMPHOCYTE ABSOLUTE 0.7 Th/cmm (1.5-3.0); MEAN CELL VOLUME 93.8 fl (80-99); MEAN CORPUSCULAR HEMOGLOBIN 30.7 pg (27.0-31.0); MEAN CORPUSCULAR HGB CONC 32.8 pg (28.0-36.0); MONOCYTE ABSOLUTE 0.2 Th/cmm (0.3-1.0); NEUTROPHILE ABSOLUTE 3.7 Th/cmm (1.8-8.0); PLATELET COUNT 215 Th/cmm (150-400); RED BLOOD COUNT 2.64 Mil/cmm (3.80-5.80); RED CELL DISTRIBUTION WIDTH 14.7 % (11.5-20.0); WHITE BLOOD COUNT 4.9 Th/cmm (4.8-10.8)
[2018-08-30 05:42] LABS: ALB/GLOB RATIO 0.5 (1.0-1.8); ALBUMIN 1.9 gm/dL (4.2-5.5); ALKALINE PHOSPHATASE 77 U/L (34-104); ANION GAP 9.8 (7.0-16.0); BILIRUBIN,TOTAL 0.3 mg/dL (0.3-1.0); BUN - UREA NITROGEN 40 mg/dL (7-25); CALCIUM SERUM 7.7 mg/dL (8.6-10.3); CARBON DIOXIDE 18.7 mEq/L (21.0-31.0); CHLORIDE 116 mEq/L (98-107); CREATININE - SERUM 1.5 mg/dL (0.7-1.3); GLUCOSE 310 mg/dL (70-105); POTASSIUM SERUM 3.5 mEq/L (3.5-5.1); SGOT 24 U/L (13-39); SGPT/ALT 19 U/L (7-52); SODIUM SERUM 141 mEq/L (136-145); TOTAL PROTEIN,SERUM 5.9 gm/dL (6.0-8.3)
[2018-08-30] MEDS: INSULIN ASPART SLIDING SCALE 100 UNITS/ML UNIT SUBQ SCH ×2 (06:39→11:54)
[2018-08-30] MEDS: Lactobacillus Rhamnosus GG 15 Billion CFU CAP.SPRINK PO SCH (08:49)
--- NOTE | 2018-08-30 08:55 | Discharge Summary ---
General Discharge Summary - Discharge Summary Discharge Date: 08/30/18 Laboratory Findings: Laboratory Results - last 24 hr 08/28/18 08/28/18 08/29/18 05:30 05:30 12:15 WBC RBC Hgb Hct MCV MCH MCHC Differential RDW Plt Count MPV Neutrophils % Lymphocytes % Monocytes % Eosinophils % Basophils % Sodium Potassium Chloride Carbon Dioxide Anion Gap BUN Creatinine Est GFR ( Amer) Est GFR (Non-Af Amer) BUN/Creatinine Ratio Glucose POC Glucose 158 H Calcium Total Bilirubin AST ALT Alkaline Phosphatase Total Protein Albumin Globulin Albumin/Globulin Ratio Urine Osmolality 492 Microalb/Creat Ratio 62.2 H 08/29/18 08/29/18 08/30/18 16:56 21:35 05:11 WBC 4.9 RBC 2.64 L Hgb 8.1 L Hct 24.7 L MCV 93.8 MCH 30.7 MCHC Differential 32.8 RDW 14.7 Plt Count 215 MPV 8.0 Neutrophils % 75.7 Lymphocytes % 13.8 L Monocytes % 4.7 Eosinophils % 5.6 H Basophils % 0.2 Sodium Potassium Chloride Carbon Dioxide Anion Gap BUN Creatinine Est GFR ( Amer) Est GFR (Non-Af Amer) BUN/Creatinine Ratio Glucose POC Glucose 161 H 194 H Calcium Total Bilirubin AST ALT Alkaline Phosphatase Total Protein Albumin Globulin Albumin/Globulin Ratio Urine Osmolality Microalb/Creat Ratio 08/30/18 08/30/18 05:11 06:14 WBC RBC Hgb Hct MCV MCH MCHC Differential RDW Plt Count MPV Neutrophils % Lymphocytes % Monocytes % Eosinophils % Basophils % Sodium 141 Potassium 3.5 Chloride 116 H Carbon Dioxide 18.7 L Anion Gap 9.8 BUN 40 H Creatinine 1.5 H Est GFR ( Amer) TNP Est GFR (Non-Af Amer) TNP BUN/Creatinine Ratio 26.7 Glucose 310 H POC Glucose 306 H Calcium 7.7 L Total Bilirubin 0.3 AST 24 ALT 19 Alkaline Phosphatase 77 Total Protein 5.9 L Albumin 1.9 L Globulin 4.0 Albumin/Globulin Ratio 0.5 L Urine Osmolality Microalb/Creat Ratio Disposition: Longterm Care Hosp (Not SNF) Home Medications: Home Medication Medication Instructions Recorded Type Acetaminophen [Tylenol] 650 mg PO Q6HR PRN 08/26/18 History Ascorbic Acid [Vitamin C] 500 mg PO DAILY 08/26/18 History Atorvastatin Calcium [Lipitor] 10 mg PO QPM 08/26/18 History Dabigatran Etexilate Mesylate 150 mg PO BID 08/26/18 History [Pradaxa] Donepezil HCl [Donepezil HCl Odt] 5 mg PO HS 08/26/18 History Folic Acid [Folate*] 1 mg PO DAILY 08/26/18 History Furosemide [Lasix] 20 mg PO BID 08/26/18 History Insulin Glargine,Hum.rec.anlog 40 unit SUBQ HS 08/26/18 History [Lantus Solostar] Insulin Human Regular [NovoLIN R] See Protocol SUBQ ACHS 08/26/18 History Lactobacillus Acidophilus 1 each PO DAILY 08/26/18 History [Acidophilus Lactobacilli] Levothyroxine [Synthroid] 0.1375 mg PO QDAC 08/26/18 History Megestrol Acetate [Megace Es] 400 mg PO BIDAC 08/26/18 History Multivitamin w/ Minerals 1 tab PO DAILY 08/26/18 History [Theragran M] Tamsulosin [Flomax] 0.4 mg PO HS 08/26/18 History metFORMIN [Glucophage] 500 mg PO BID 08/26/18 History Inpatient Medications: Current Medications Acetaminophen (Tylenol) 650 mg PO Q6HR PRN PRN Reason: Pain Or Fever >100F Stop: 10/26/18 08:37 Last Admin: 08/30/18 01:42 Dose: 650 mg Ascorbic Acid (Vitamin C) 500 mg PO DAILY [facility] Stop: 10/26/18 08:59 Last Admin: 08/30/18 08:49 Dose: 500 mg Donepezil HCl (Aricept) 5 mg PO [facility] Stop: 10/26/18 20:59 Last Admin: 08/29/18 20:45 Dose: 5 mg Ferrous Sulfate (Iron) 300 mg PO TID [facility] Stop: 10/29/18 08:59 Folic Acid (Folate) 1 mg PO DAILY [facility] Stop: 10/26/18 08:59 Last Admin: 08/30/18 08:49 Dose: 1 mg Dextrose (D5w) 1,000 mls @ 100 mls/hr IV .Q10H [facility] Stop: 10/26/18 14:29 Last Admin: 08/30/18 01:46 Dose: 100 mls/hr Insulin Aspart (Novolog Insulin Sliding Scale) 0 units SUBQ ACHS [facility]; Protocol Stop: 10/26/18 07:29 Last Admin: 08/30/18 06:39 Dose: 8 units Lactobacillus Rhamnosus (Culturelle 15b) 1 each PO DAILY [facility] Stop: 10/26/18 08:59 Last Admin: 08/30/18 08:49 Dose: 1 each Levothyroxine Sodium 0.112 mg/ (Levothyroxine Sodium 0.025 mg) 0.137 mg PO QDAC [facility] Stop: 10/27/18 07:29 Last Admin: 08/30/18 06:46 Dose: Not Given Megestrol Acetate (Megace) 400 mg PO BIDAC [facility] Stop: 10/26/18 16:29 Last Admin: 08/30/18 06:39 Dose: 400 mg Potassium Chloride (Potassium Chloride Elixir) 20 meq GT DAILY [facility] Stop: 10/29/18 08:59 Last Admin: 08/30/18 08:49 Dose: 20 meq Sodium Bicarbonate (Sodium Bicarbonate) 650 mg PO BID [facility]; Protocol Stop: 10/28/18 16:59 Last Admin: 08/30/18 08:49 Dose: 650 mg Tamsulosin HCl (Flomax) 0.4 mg PO HS [facility] Stop: 10/26/18 20:59 Last Admin: 08/29/18 20:45 Dose: 0.4 mg Consults and Follow-Up: Carlos Jackson [Primary Care Provider] -
[2018-08-30] MEDS ORDERED: Ferrous Sulfate 300 MG/5 ML UDC PO SCH (09:00)
[2018-08-30] MEDS ORDERED: Potassium Chloride Elixir 20 mEq /15 mL UDC GT SCH (09:00)
--- NOTE | 2018-08-30 12:07 | GI Progress Note ---
Subjective - Review of Systems Service Date: 08/30/18 Subjective: EVENTS NOTED SOME POST TUSSIVE EMESIS. ALISSON GT FEEDS. NO GASTRIC RESIDUALS. Objective - Results Result Diagrams: 08/30/18 05:11 08/30/18 05:11 Recent Labs: Laboratory Last Values WBC 4.9 Th/cmm (4.8-10.8) 08/30/18 05:11 RBC 2.64 Mil/cmm (3.80-5.80) L 08/30/18 05:11 Hgb 8.1 gm/dL (12-16) L 08/30/18 05:11 Hct 24.7 % (41.0-60) L 08/30/18 05:11 MCV 93.8 fl (80-99) 08/30/18 05:11 MCH 30.7 pg (27.0-31.0) 08/30/18 05:11 MCHC Differential 32.8 pg (28.0-36.0) 08/30/18 05:11 RDW 14.7 % (11.5-20.0) 08/30/18 05:11 Plt Count 215 Th/cmm (150-400) 08/30/18 05:11 MPV 8.0 fl 08/30/18 05:11 Add Manual Diff YES 08/27/18 04:39 Neutrophils % 75.7 % (40.0-80.0) 08/30/18 05:11 Band Neutrophils % 0 % (0-10) 08/27/18 04:39 Lymphocytes % 13.8 % (20.0-50.0) L 08/30/18 05:11 Monocytes % 4.7 % (2.0-10.0) 08/30/18 05:11 Eosinophils % 5.6 % (0.0-5.0) H 08/30/18 05:11 Basophils % 0.2 % (0.0-2.0) 08/30/18 05:11 Neutrophils (Manual) 90 % (40-80) H 08/27/18 04:39 Lymphocytes 6 % (20-50) L 08/27/18 04:39 Monocytes 3 % (2-10) 08/27/18 04:39 Eosinophils 1 % (0-5) 08/27/18 04:39 Basophils 0 % (0-3) 08/27/18 04:39 Eos Smear Source URINE 08/28/18 05:30 Eos Smear Total Cells NONE SEEN (NONE SEEN) 08/28/18 05:30 PT 10.6 SECONDS (9.5-11.5) 08/28/18 04:00 INR 1.02 (0.5-1.4) 08/28/18 04:00 PTT (Actin FS) 26.4 SECONDS (26.0-38.0) 08/28/18 04:00 Sodium 141 mEq/L (136-145) 08/30/18 05:11 Potassium 3.5 mEq/L (3.5-5.1) 08/30/18 05:11 Chloride 116 mEq/L (98-107) H 08/30/18 05:11 Carbon Dioxide 18.7 mEq/L (21.0-31.0) L 08/30/18 05:11 Anion Gap 9.8 (7.0-16.0) 08/30/18 05:11 BUN 40 mg/dL (7-25) H 08/30/18 05:11 Creatinine 1.5 mg/dL (0.7-1.3) H 08/30/18 05:11 Est GFR ( Amer) TNP 08/30/18 05:11 Est GFR (Non-Af Amer) TNP 08/30/18 05:11 BUN/Creatinine Ratio 26.7 08/30/18 05:11 Glucose 310 mg/dL (70-105) H 08/30/18 05:11 POC Glucose 260 MG/DL (70 - 105) H 08/30/18 11:20 Whole Bld Lactic Acid 1.17 mmol/L (0.60-1.99) 08/29/18 04:55 Uric Acid 8.2 mg/dL (4.4-7.6) H 08/28/18 04:00 Calcium 7.7 mg/dL (8.6-10.3) L 08/30/18 05:11 Phosphorus 2.9 mg/dL (2.5-5.0) 08/28/18 04:00 Magnesium 1.9 mg/dL (1.9-2.7) 08/28/18 04:00 Total Bilirubin 0.3 mg/dL (0.3-1.0) 08/30/18 05:11 AST 24 U/L (13-39) 08/30/18 05:11 ALT 19 U/L (7-52) 08/30/18 05:11 Alkaline Phosphatase 77 U/L (34-104) 08/30/18 05:11 B-Natriuretic Peptide 385.0 pg/mL (5.0-100.0) H 08/26/18 17:35 Total Protein 5.9 gm/dL (6.0-8.3) L 08/30/18 05:11 Albumin 1.9 gm/dL (4.2-5.5) L 08/30/18 05:11 Globulin 4.0 gm/dL 08/30/18 05:11 Albumin/Globulin Ratio 0.5 (1.0-1.8) L 08/30/18 05:11 TSH 16.45 uIU/ml (0.34-5.60) H 08/26/18 17:35 Urine Source MIDSTREAM 08/28/18 05:30 Urine Color YELLOW 08/28/18 05:30 Urine Clarity HAZY (CLEAR) 08/28/18 05:30 Urine pH 5.0 (4.6 - 8.0) 08/28/18 05:30 Ur Specific [place] 1.025 (1.005-1.030) 08/28/18 05:30 Urine Protein TRACE mg/dL (NEGATIVE) 08/28/18 05:30 Urine Glucose (UA) NEGATIVE mg/dL (NEGATIVE) 08/28/18 05:30 Urine Ketones NEGATIVE mg/dL (NEGATIVE) 08/28/18 05:30 Urine Blood NEGATIVE (NEGATIVE) 08/28/18 05:30 Urine Nitrate NEGATIVE (NEGATIVE) 08/28/18 05:30 Urine Bilirubin NEGATIVE (NEGATIVE) 08/28/18 05:30 Urine Urobilinogen 0.2 E.U./dL (0.2 - 1.0) 08/28/18 05:30 Ur Leukocyte Esterase NEGATIVE (NEGATIVE) 08/28/18 05:30 Urine RBC 0-2 /hpf (0-5) H 08/28/18 05:30 Urine WBC 0-2 /hpf (0-5) 08/28/18 05:30 Ur Epithelial Cells OCCASIONAL /lpf (FEW) 08/28/18 05:30 Amorphous Sediment FEW URATES (NONE SEEN) 12/05/18 05:30 Urine Bacteria NONE SEEN /hpf (NONE SEEN) 08/28/18 05:30 Urine Osmolality 492 mOsmol/kg 08/28/18 05:30 Ur Random Sodium 53 mmol/L 08/28/18 05:30 Urine Creatinine 74.0 mg/dl (39.0-259.0) 08/28/18 05:30 Microalb/Creat Ratio 62.2 mg/g creat (0.0-30.0) H 08/28/18 05:30 Serum Ketones NEGATIVE (NEGATIVE) 08/29/18 04:55 - Physical Exam Vitals and I&O: Vital Signs Temp 96.1 F 08/30/18 10:40 Pulse 69 08/30/18 11:21 Resp 18 08/30/18 11:21 BP 119/55 08/30/18 10:40 Pulse Ox 99 08/30/18 11:21 Intake & Output 08/29/18 08/30/18 08/30/18 18:59 06:59 18:59 Intake Total 2141.265 9899.667 Output Total 520 400 Balance 191.800 2371.667 Weight (lbs) 60.781 kg 60.781 kg Intake: Intake, IV Amount 763.333 976.667 Dextrose 5% 1,000 ml @ 663.333 976.667 100 mls/hr IV .Q10H [facility] Rx#:[id number] KCL 20mEq/100mL Premix 20 100 meq In 100 ml @ 50 mls/ hr IV Q2H [facility] Rx#: [id number] Tube Feeding 480 840 Output: Urine 520 400 Other: # Bowel Movements 2 Weight Source Bedscale Bedscale Active Medications: Current Medications Acetaminophen (Tylenol) 650 mg PO Q6HR PRN PRN Reason: Pain Or Fever >100F Stop: 10/26/18 08:37 Last Admin: 08/30/18 01:42 Dose: 650 mg Ascorbic Acid (Vitamin C) 500 mg PO DAILY [facility] Stop: 10/26/18 08:59 Last Admin: 08/30/18 08:49 Dose: 500 mg Donepezil HCl (Aricept) 5 mg PO HS [facility] Stop: 10/26/18 20:59 Last Admin: 08/29/18 20:45 Dose: 5 mg Ferrous Sulfate (Iron) 300 mg PO TID [facility] Stop: 10/29/18 08:59 Last Admin: 08/30/18 11:56 Dose: 300 mg Folic Acid (Folate) 1 mg PO DAILY [facility] Stop: 10/26/18 08:59 Last Admin: 08/30/18 08:49 Dose: 1 mg Dextrose (D5w) 1,000 mls @ 100 mls/hr IV .Q10H [facility] Stop: 10/26/18 14:29 Last Admin: 08/30/18 01:46 Dose: 100 mls/hr Insulin Aspart (Novolog Insulin Sliding Scale) 0 units SUBQ ACHS [facility]; Protocol Stop: 10/26/18 07:29 Last Admin: 08/30/18 11:54 Dose: 6 units Lactobacillus Rhamnosus (Culturelle 15b) 1 each PO DAILY [facility] Stop: 10/26/18 08:59 Last Admin: 08/30/18 08:49 Dose: 1 each Levothyroxine Sodium 0.112 mg/ (Levothyroxine Sodium 0.025 mg) 0.137 mg PO QDAC [facility] Stop: 10/27/18 07:29 Last Admin: 08/30/18 06:46 Dose: Not Given Megestrol Acetate (Megace) 400 mg PO BIDAC [facility] Stop: 10/26/18 16:29 Last Admin: 08/30/18 06:39 Dose: 400 mg Potassium Chloride (Potassium Chloride Elixir) 20 meq GT DAILY [facility] Stop: 10/29/18 08:59 Last Admin: 08/30/18 08:49 Dose: 20 meq Sodium Bicarbonate (Sodium Bicarbonate) 650 mg PO BID [facility]; Protocol Stop: 10/28/18 16:59 Last Admin: 08/30/18 08:49 Dose: 650 mg Tamsulosin HCl (Flomax) 0.4 mg PO HS [facility] Stop: 10/26/18 20:59 Last Admin: 08/29/18 20:45 Dose: 0.4 mg General: No acute distress HEENT: Atraumatic Neck: Supple Cardiovascular: Regular rate Lungs: Clear to auscultation Abdomen: Bowel sounds, Soft, Other (G-tube in place) Extremities: Other (No edema), no Edema Neurological: Sensation intact, Other (Non ambulatory) Skin: no Rash Psych/Mental Status: Mood NL, Other (Patient is obtunded non following verbal commands, responding to pain. ) - Procedures Procedures: Procedures Procedure Code Date DETACHMENT AT RIGHT LOWER LEG, HIGH, OPEN APPROACH [id number] 07/14/18 INSERTION OF FEEDING DEVICE INTO STOMACH, PERC APPROACH [id number] 08/26/18 OTHER GROUP THERAPY 94.44 04/17/13 Assessment/Plan - Assessment Assessment: IMPRESSION: 1. DYSPHAGIA, S/P GT PLACEMENT 08/28. 2. ANEMIA. 3. DEMENTIA. RECS: 1. CONTINUE TUBE FEEDS ALISSON. 2. MONITOR HGB. 3. CONTINUE MEDS.
== END 2018-08-30 12:40 | DRG 682 ==
LOC: ER 17:12 → MSI 22:19
PROVIDERS: ADMIT General Practice; ATTEND General Practice
PROC: 0DH68UZ Insertion of Feeding Device into Stomach, Via Natural or Artificial Opening Endoscopic (ICD-10-PCS; principal; 2018-08-28)
DX: N17.0 Acute kidney failure with tubular necrosis (principal); E43 Unspecified severe protein-calorie malnutrition; E87.2 Acidosis; E87.0 Hyperosmolality and hypernatremia; I13.0 Hypertensive heart and chronic kidney disease with heart failure and stage 1 through stage 4 chronic kidney disease, or unspecified chronic kidney disease; K22.2 Esophageal obstruction; R62.7 Adult failure to thrive; E87.6 Hypokalemia; E03.9 Hypothyroidism, unspecified; N18.9 Chronic kidney disease, unspecified; D64.9 Anemia, unspecified; N40.0 Benign prostatic hyperplasia without lower urinary tract symptoms; Z66 Do not resuscitate; E78.5 Hyperlipidemia, unspecified; I50.9 Heart failure, unspecified; E11.22 Type 2 diabetes mellitus with diabetic chronic kidney disease; E11.51 Type 2 diabetes mellitus with diabetic peripheral angiopathy without gangrene; R13.10 Dysphagia, unspecified; I25.119 Atherosclerotic heart disease of native coronary artery with unspecified angina pectoris; G30.9 Alzheimer's disease, unspecified; F02.80 Dementia in other diseases classified elsewhere, unspecified severity, without behavioral disturbance, psychotic disturbance, mood disturbance, and anxiety; D63.8 Anemia in other chronic diseases classified elsewhere; N32.89 Other specified disorders of bladder; Z88.8 Allergy status to other drugs, medicaments and biological substances; Z68.22 Body mass index [BMI] 22.0-22.9, adult; Z95.1 Presence of aortocoronary bypass graft; Z89.511 Acquired absence of right leg below knee; Z79.4 Long term (current) use of insulin
CPT/HCPCS: 36415-UA; 71045-TC; 76770-TC; 80048-TC; 80053-TC; 81001-TC; 81015-TC; 82010-TC; 82043-90; 82570-TC; 82948-90; 83036-90; 83605; 83735-TC; 83880-TC; 83935-90; 84100-TC; 84300-TC; 84443-TC; 84550-TC; 85007-TC; 85025-TC; 85610-TC; 93005; 94760; J0690; J1815; J2001; J2543; J2704; J3480; J7070; X3401; Z7506; Z7610